=== PATIENT | male | born 1960 | race Caucasian/White ===

== ENCOUNTER → 2017-02-01 | Outpatient (CLI) | payer MEDICAID ==
[2017-02-01 17:48] LABS: Blood Urea Nitrogen 26 mg/dL (9-20); Non-African American GFR(MDRD) >60 (>60 ml/min/1.73 sqM)
--- NOTE | 2017-02-01 18:35 | CT ---
EXAMINATION TYPE: CT lumbar spine w con DATE OF EXAM: 02/01/2017 COMPARISON: 10/07/2014 HISTORY: Lower back pain. CT DLP: 1574 mGycm Automated exposure control for dose reduction was used. CONTRAST: CT scan of the lumbar is performed with IV Contrast, patient injected with 100 mL of Omnipaque 300. Enhanced CT of the lumbar spine was performed. Bone and soft tissue window settings are submitted as well as coronal and sagittal reconstructions. There is 4 to 5 mm anterior subluxation of L4 in relation L5. There is mild narrowing at L4-5 disc. T here is hypertrophic anterior bridging osteophyte formation at T11-L2 vertebra. Abdominal aorta is at heromatous. There is no compression fracture. There is mild hypertrophic facet arthropathy in the low er lumbar spine. There is narrowing of the spinal canal at L4-5 due to subluxation deformity and face t arthropathy. IMPRESSION: There is a degenerative first-degree L4-5 spondylolisthesis. There is a mild to moderate L4-5 bony sp inal stenosis due to the subluxation deformity. No fracture. Hypertrophic bridging osteophytes in the lower thoracic and upper lumbar spine could relate to a idiopathic skeletal hyperostosis. There is some progression of the subluxation at L4-[address]. Spinal stenosis appears worse than old exam.
== END | disposition home or self-care (01) ==
LOC: RADCTMAIN 17:03
PROVIDERS: ATTEND Family Medicine
DX: M48.06 Spinal stenosis, lumbar region (principal); M43.16 Spondylolisthesis, lumbar region; M47.26 Other spondylosis with radiculopathy, lumbar region; G95.29 Other cord compression
CPT/HCPCS: 82565; 84520; 72132; 36415; Q9967

== ENCOUNTER → 2017-04-02 | Outpatient (CLI) | payer MEDICAID | END | disposition home or self-care (01) | LOC: LABPAT 14:58 | PROVIDERS: ATTEND Orthopaedic Surgery Orthopaedic Surgery of the Spine | DX: Z01.812 Encounter for preprocedural laboratory examination (principal) | CPT/HCPCS: 87070 ==

== ENCOUNTER → 2017-04-09 | Outpatient (CLI) | payer MEDICAID ==
[2017-04-09 07:28] LABS: Basophils # (A) 0.1 k/uL (0-0.2); Basophils % (A) 1 %; CHCM 32.2; Eosinophils # (A) 0.3 k/uL (0-0.7); Eosinophils % (A) 3 %; HCT 47.1 % (39.0-53.0); HDW 2.83; HGB 14.9 gm/dL (13.0-17.5); Luc # (Auto) 0.23; Luc % (Auto) 2; Lymphocytes # (A) 2.9 k/uL (1.0-4.8); Lymphocytes % (A) 28 %; MCH 29.6 pg (25.0-35.0); MCHC 31.6 g/dL (31.0-37.0); MCV 93.6 fL (80.0-100.0); Mean Platelet Volume 8.7; Monocytes # (A) 0.7 k/uL (0-1.0); Monocytes % (A) 7 %; Neutrophils # (A) 6.3 k/uL (1.3-7.7); Neutrophils % (A) 60 %; RBC 5.03 m/uL (4.30-5.90); RDW 14.8 % (11.5-15.5); WBC 10.5 k/uL (3.8-10.6); WBC (Perox) 10.09
[2017-04-09 07:30] LABS: INR 0.9 (<1.2); Partial Thromboplastin Time 22.4 sec (22.0-30.0); Prothrombin Time 9.5 sec (9.0-12.0)
[2017-04-09 07:39] LABS: Appearance,Urine Clear (Clear); Bilirubin,Urine Negative (Negative); Glucose,Urine (UA) 4+ (Negative); Ketones,Urine Negative (Negative); Leukocyte Esterase,Urine Negative (Negative); Nitrite,Urine Negative (Negative); PH, Urine 5.5 (5.0-8.0); Protein,Urine Negative (Negative); Specific Gravity,Urine 1.015 (1.001-1.035); UA Billing (MACRO vs. MICRO) CHEM; Urobilinogen,Urine <2.0 mg/dL (<2.0)
[2017-04-09 07:42] LABS: Anion Gap 9 mmol/L; Blood Urea Nitrogen 15 mg/dL (9-20); Calcium 10.1 mg/dL (8.4-10.2); Carbon Dioxide 27 mmol/L (22-30); Chloride 103 mmol/L (98-107); Glucose 360 mg/dL (74-99); Non-African American GFR(MDRD) >60 (>60 ml/min/1.73 sqM); Potassium 5.4 mmol/L (3.5-5.1); Sodium 139 mmol/L (137-145)
--- NOTE | 2017-04-09 16:47 | XR ---
EXAMINATION TYPE: XR chest 2V DATE OF EXAM: 04/09/2017 COMPARISON: Prior chest x-ray 06/25/2015 and 03/10/2013 HISTORY: Presurgical TECHNIQUE: Frontal and lateral views of the chest are obtained. FINDINGS: There is no focal air space opacity, pleural effusion, or pneumothorax seen. The cardiac silhouette size is stable. Suspect prominent epicardial fat pads. Flowing anterior osteophytes in the thoracic spine are suspected. The osseous structures are intact. IMPRESSION: No acute cardiopulmonary process. Findings compatible with diffuse idiopathic skeletal h yperostosis.
== END | disposition home or self-care (01) ==
LOC: LABPAT 06:31
PROVIDERS: ATTEND Orthopaedic Surgery Orthopaedic Surgery of the Spine
DX: Z01.818 Encounter for other preprocedural examination (principal); Z01.812 Encounter for preprocedural laboratory examination; M48.00 Spinal stenosis, site unspecified
CPT/HCPCS: 71020; 80048; 81003; 85025; 85610; 85730

== ENCOUNTER 2017-04-17 08:48 | Inpatient (IN) | payer MEDICAID ==
[2017-04-05 11:31] VITALS: BMI 39.9
[~2017-04-17 08:48] MED LIST: BACITRACIN 50,000 UNIT, POLYMYXIN B 500,000 UNIT in SODIUM CHLORIDE 0.9% IRRIGATIO 1,00... IRRIGATION ONE; DEXAMETHASONE SOD PHOSPHATE 10 MG/ML 1 ML VIAL IV ONE; VANCOMYCIN 1,750 MG in SODIUM CHLORIDE 0.9% 250 ML IVPB ONE; ceFAZolin IN SWFI 2 GM/20 ML SYRINGE IVP ONE
[2017-04-17 09:35] LABS: Glucose,Whole Blood 343 mg/dL (75-99)
[2017-04-17] MEDS ORDERED: LIDOCAINE 1% 20 ML VIAL (10MG/ML) FOR IV START INTRADERMA ONE (09:40)
[2017-04-17] MEDS: LACTATED RINGERS 1,000 ML IV SCH ×4 (09:40→22:27)
[2017-04-17] MEDS: ONDANSETRON 4 MG/2 ML VIAL IVP ONE ×2 (09:41→17:38)
[2017-04-17] MEDS ORDERED: SCOPOLAMINE 1.5MG/72HR PATCH TRANSDERM ONE (09:41)
[2017-04-17] MEDS ORDERED: INSULIN LISPRO (humaLOG) 300 UNIT/3 ML VIAL SQ ONE (09:59)
[2017-04-17] MEDS ORDERED: fentaNYL (PF) 50 MCG/ML 2 ML AMP IV ONE (11:04)
[2017-04-17] MEDS ORDERED: fentaNYL (PF) 50 MCG/ML 2 ML AMP ONE (13:09)
[2017-04-17] MEDS ORDERED: PHENYLEPHRINE-0.9% NACL SYG 1 MG/10 ML SYRINGE ONE (13:09)
[2017-04-17] MEDS ORDERED: HEPARIN SODIUM,PORCINE 10,000 UNIT/ML 1 ML VIAL ONE (13:09)
[2017-04-17] MEDS ORDERED: THROMBIN (BOVINE) 5,000 UNIT VIAL TOPICAL ONE (13:09)
[2017-04-17] MEDS ORDERED: ROCURONIUM BROMIDE 10 MG/ML 10 ML VIAL IV ONE (13:09)
[2017-04-17] MEDS ORDERED: MIDAZOLAM 2 MG/2 ML VIAL ONE (13:09)
[2017-04-17] MEDS ORDERED: SUCCINYLCHOLINE CHLORIDE VIAL 200 MG/10 ML VIAL IV ONE (13:09)
[2017-04-17] MEDS ORDERED: PROPOFOL 10 MG/ML 20 ML VIAL IV ONE (13:09)
[2017-04-17] MEDS ORDERED: LIDOCAINE 1% INJ 10MG/ML (20 ML MDV) SQ ONE (13:09)
[2017-04-17] MEDS ORDERED: SODIUM CHLORIDE 0.9% IRRIG 1,000 ML BTL IRRIGATION ONE (13:09)
[2017-04-17] MEDS ORDERED: ePHEDrine SULFATE/0.9% NACL/PF 50 MG/5 ML SYRINGE IV ONE (13:09)
[2017-04-17] MEDS ORDERED: LIDOCAINE 1% INJ 10MG/ML (20 ML MDV) ONE (13:09)
[2017-04-17] MEDS ORDERED: GELATIN SPONGE,ABSORB (LARGE) 1 EACH SPONGE TOPICAL ONE (13:09)
[2017-04-17] MEDS ORDERED: HYDROmorphone (PF) 1 MG/ML ONE (13:09)
[2017-04-17] MEDS ORDERED: GLYCOPYRROLATE 0.2 MG/ML 2 ML VIAL ONE (13:09)
[2017-04-17] MEDS ORDERED: SODIUM CHLORIDE 0.9% 20 ML with ceFAZolin 2 GM IV ONE ×2 (13:31)
[2017-04-17] MEDS ORDERED: [UNRECOGNIZED DRUG - OTHER] MISCELLANE ONE ×4 (14:08)
[2017-04-17] MEDS ORDERED: BUPIVACAINE LIPOSOME MISCELLANE ONE ×4 (14:08)
[2017-04-17] MEDS ORDERED: LACTATED RINGERS 1,000 ML IV ONE ×2 (14:50→16:40)
[2017-04-17 15:53] LABS: Glucose,Whole Blood 189 mg/dL (75-99)
[2017-04-17] MEDS ORDERED: BENZOCAINE/MENTHOL LOZENG 1 EACH LOZENGE MUCOUS MEM PRN (17:02)
[2017-04-17] MEDS ORDERED: HYDROcodone/APAP 5-325MG 1 EACH TAB PO PRN (17:02)
[2017-04-17] MEDS ORDERED: MAGNESIUM HYDROXIDE 2,400 MG/10 ML CUP PO PRN (17:02)
[2017-04-17] MEDS ORDERED: HYDROmorphone 1 MG/ML 1 ML SYRINGE IVP PRN ×2 (17:02)
[2017-04-17] MEDS ORDERED: ONDANSETRON 4 MG/2 ML VIAL IVP PRN (17:02)
[2017-04-17] MEDS ORDERED: ACETAMINOPHEN TAB 325 MG TAB PO PRN (17:06)
--- NOTE | 2017-04-17 17:23 | P.OP ---
Date of Procedure: 04/17/17 Preoperative Diagnosis: Spondylolisthesis L4 5, recurrent herniated nucleus pulposis L4 5, spinal stenosis L4 5, facet arthrosis L4 5, lower extremity radiculopathy Postoperative Diagnosis: Same Anesthesia: GETA Pathology: none sent Condition: stable Disposition: PACU Description of Procedure: DESCRIPTION OF PROCEDURE(S): BRIEF OPERATIVE NOTE Preoperative Diagnosis: Spondylolisthesis L4 5, recurrent herniated nucleus pulposis L4 5, spinal stenosis L4 5, facet arthrosis L4 5, low back pain with lower extremity radiculopathy Postoperative Diagnosis: Same Procedure: Revision Laminectomy and decompression with complete facetectomy on the right L4 5 Minimally invasive Posterior lateral decompression and fusion L4 5 Minimally invasive Transforaminal lumbar interbody fusion for a 360 fusion L4 5 Revision Discectomy for decompression L4 5 Placement of interbody graft L4 5 Aspiration of bone marrow aspirate via the pedicle of L4 5 Local autogenous bone grafting Use of Cell Saver Use of bone graft extenders Surgeon: Dr. Hoyos [employer] Analyst: Ihsan BAH who is present throughout the entire the case persistence during positioning, dissection, exposure, visualization, and all crucial elements of the case as well as closure. Anesthesia: General anesthesia per Dr. Vogt Estimated blood loss: Approximately 300 mL with 141 mL given back through Cell Saver Complications: None apparent Components implanted: K2M minimally invasive pedicle screw system with 2 screws measuring 6.5 x 40 550 mm in length with one ana luisa 1 [place] interbody cage 1 osteoamp sponge, 15 mL of DBM fibrous bone graft, to supplement the local autogenous bone graft and bone marrow aspirate. Dissposition: To recovery room in good stable condition. OPERATIVE INDICATIONS The patient has had long-standing issues in their lower back and lower extremities. several years ago he had sustained a herniated nucleus process at L4 5 and underwent decompression and discectomy with our service. He had done great with that procedure and was doing very well over the past several years however over the past several months he has been developing worsening pain in his back and lower extremities. He had acute exacerbation and had severe symptoms with this. He had treatment conservatively and repeat imaging showed recurrent herniation and stenosis with progressive degeneration at L4 5 and new spondylolisthesis L4 5. These findings correlated with his back and lower extremity symptoms. The patient has been through conservative treatment. We discussed various treatment options including surgery, and the patient wishes to proceed with surgery We discussed the risk, patient's alternatives and benefits of surgery including but not limited to, risk of bleeding risk of infection, risk of need for further surgery, risk of decreased, loss of motion, muscle function, malunion nonunion, hardware failure, nerve damage, paralysis, heart attack, blindness and . OPERATIVE SUMMARY After discussing all the risks, patient alternatives and benefits at length, the patient elected to proceed with surgical intervention, signed informed consent, and presented for their procedure. The patient was seen and examined in the preoperative holding area and the surgical site was marked. The patient was given antibiotics and brought to the operating room. The patient was sedated and intubated by anesthesia in standard fashion. The patient was positioned on to the operating room table in a prone position on the appropriate frame which was well-padded and well molded. We were careful to pad any bony prominences and pressure points. We were careful to maintain the patient's cervical spine and good neutral alignment and position throughout. The patient was prepped and draped in a normal standard fashion. An appropriate timeout and keystone protocol performed. We were able to proceed with the surgery. The local wound area was infiltrated with local anesthetic. I was able utilize C-arm guidance to establish appropriate position over the pedicles bilaterally at the appropriate levels at L4 5 . With the appropriate levels confirmed was able to make small stab incisions over the appropriate pedicle sites bilaterally. Utilizing C-arm in his house able to establish a Jamshidi needle over the lateral aspect of the pedicle and advanced the trocar into the pedicle being careful not to breech superiorly inferiorly medially or laterally. Position was confirmed regularly with AP and lateral images on C- arm. I was able to establish the trocar into the pedicle appropriately into the posterior aspect of the vertebral body bilaterally at the appropriate levels at L4 and L5 bilaterally . This was done at each of the pedicle positions and each of the vertebrae. I was able place the guidewire into the trocar and into the vertebral body appropriately under C-arm guidance. Dissection was taken down over the wire to the appropriate starting position for the screw placed. The appropriate length screw was chosen, threaded over the guidewire and screwed appropriately into the pedicle and vertebral body under C-arm guidance. At L4 and L5 on the left I had excellent alignment and position with good bony purchase. However had L5 on the right the pedicle screw screw was somewhat lateral and we attempted to reposition the screw more medially. During this process the screw hole became expanded and we lost good screw fixation at L5 on the right. With the screws intact at L4 and 5 on the left in excellent alignment and position with excellent bony purchase I felt that would be sufficient to do unilateral pedicle screw fixation on the left and forego the pedicle screw fixation of the right. I was still able to use the pedicle screw at L4 on the right for use for the retraction plate system to the case. With the intact screws on the left I was able to test the screws appropriately and that no evidence of stimulation at 20 mA. This is done at each of the screw sites at the appropriate levels at L4 5 on the left . With the screws intact I extended the incision to connect the screw hole sites on the most symptomatic side on the right . I dissected down to establish access over the pars and lamina to the base of the spinous process. I was able to expose the facet joint. The capsule the facet was taken down and showed some facet arthrosis at the joint. I was able to use a combination of curettes and Kerrison rongeurs and a high-speed drill to take down the facet joint and do a facetectomy. Partial revision laminectomy was also performed. I was able get excellent foraminal decompression and central decompression with undermining across midline to perform a laminectomy centrally and contralaterally. As able get good central decompression. The ligamentum flavum was taken down to further decompress centrally and at bilateral neural foramen. I was able to expose the disc space and visualize the traversing nerve root. No was made of some disc protrusion at the level causing further compression of the nerve root. I was able to establish a annulotomy at the appropriate level protecting soft tissue and neural structures. No was made of some disc desiccation at the disc. I performed a a revision complete discectomy with accommodation of curettes and rasps and scrapers. I was able get good endplate preparation at the disc space. I sized for the appropriate size interbody spacer protecting the soft tissue and neural structures. The wound was copiously irrigated and suctioned dry. There is no evidence of any dural tear or leak. I was able to pack the disc space with local autogenous bone graft as well as a small amount of infuse which was also placed into the interbody cage itself. Protecting the soft tissue structures and neural structures I was able place the interbody cage in good alignment and good position with good fit and fill at the interbody space. His issues was confirmed with C-arm guidance. Good hemostasis maintained. There is no evidence of any dural tear or leak. The wound was irrigated and suctioned dry. With the hardware intact, intraoperative C-arm imaging was again taken which showed good alignment and position of the hardware at the appropriate levels at L4 5 . We were then able to measure, contour and place the rods and appropriate hardware bilaterally. I was able to place capcrews, tighten them down, and shear them off appropriately. The sheared portion was counted and accounted for. With this intact I was able to place the local autogenous bone graft with additional bone graft enhancer as necessary into the posterior lateral gutters over the decorticated transverse processes. The remainder of thbone graftas placed over the facet joint on the contralateral side after taking down the facet joint capsule. With the bone graft intact, a stable construct, and good decompression at the appropriate levels, we were able to proceed with closure. Good hemostasis was maintained. There is no evidence of dural tear or leak. The fascia was closed for a watertight closure. he subcuticular tissue was closed with absorbable suture. The wound was cleaned and dried and dressed with the appropriate dressing. The drapes were broken down. The patient was gently rolled back onto their hospital bed being careful to maintain their cervical spine and good neutral alignment and position. They were woken up by anesthesia, extubated, and brought to the recovery room in good stable condition. The patient will be admitted to the hospital for appropriate postoperative care , medical management and monitoring. We will continue to follow them closely about the postoperative course.
[2017-04-17] MEDS ORDERED: INSULIN LISPRO SQ SCH (17:30)
[2017-04-17 17:59] LABS: Glucose,Whole Blood 191 mg/dL (75-99)
[2017-04-17] MEDS ORDERED: PROMETHAZINE INJ 25 MG/ML 1 ML VIAL IVPB ONE (17:59)
[2017-04-17] MEDS: HYDROcodone/APAP 5-325MG 1 EACH TAB PO PRN (19:36)
[2017-04-17] MEDS: SODIUM CHLORIDE 0.9% 1,000 ML IV SCH (20:34)
[2017-04-17] MEDS: INSULIN DETEMIR 100 UNIT/ML 10 ML VIAL SQ SCH (20:44)
[2017-04-17] MEDS: DIAZEPAM 5 MG TAB PO PRN (20:59)
[2017-04-17 21:00] LABS: Glucose,Whole Blood 220 mg/dL (75-99)
[2017-04-17] MEDS: PROPRANOLOL 20 MG TAB PO SCH (21:00)
[2017-04-17] MEDS ORDERED: INSULIN ASPART 100 UNIT/ML 1 ML 10 ML VIAL SQ SCH (21:00)
[2017-04-17] MEDS: ceFAZolin IN SWFI 2 GM/20 ML SYRINGE IVP SCH (21:00)
[2017-04-17] MEDS ORDERED: PROPRANOLOL 40 MG TAB PO SCH (22:00)
[2017-04-18] MEDS ORDERED: ceFAZolin 3 GM in SODIUM CHLORIDE 0.9% 100 ML IVPB SCH ×2
[2017-04-18] MEDS: DIAZEPAM 5 MG TAB PO PRN ×3 (04:54→20:32)
[2017-04-18] MEDS: ceFAZolin IN SWFI 2 GM/20 ML SYRINGE IVP SCH ×3 (04:54→21:17)
[2017-04-18] MEDS: traMADol 50 MG TAB PO PRN ×3 (05:48→20:31)
[2017-04-18] MEDS: LACTATED RINGERS 1,000 ML IV SCH ×2 (06:12→09:46)
[2017-04-18 06:54] LABS: Basophils % (A) 0 %; CH 30.4; CHCM 32.4; Eosinophils # (A) 0.2 k/uL (0-0.7); Eosinophils % (A) 2 %; HCT 41.3 % (39.0-53.0); HDW 2.92; HGB 13.3 gm/dL (13.0-17.5); Luc # (Auto) 0.14; Luc % (Auto) 1; Lymphocytes # (A) 1.2 k/uL (1.0-4.8); Lymphocytes % (A) 10 %; MCH 30.4 pg (25.0-35.0); MCHC 32.2 g/dL (31.0-37.0); MCV 94.6 fL (80.0-100.0); Mean Platelet Volume 7.9; Monocytes # (A) 0.5 k/uL (0-1.0); Monocytes % (A) 5 %; Neutrophils # (A) 9.1 k/uL (1.3-7.7); Neutrophils % (A) 82 %; RBC 4.37 m/uL (4.30-5.90); RDW 13.5 % (11.5-15.5); WBC 11.2 k/uL (3.8-10.6); WBC (Perox) 11.59
[2017-04-18 07:12] LABS: Anion Gap 7 mmol/L; Blood Urea Nitrogen 12 mg/dL (9-20); Carbon Dioxide 26 mmol/L (22-30); Chloride 102 mmol/L (98-107); Glucose 252 mg/dL (74-99); Non-African American GFR(MDRD) >60 (>60 ml/min/1.73 sqM); Potassium 4.6 mmol/L (3.5-5.1); Sodium 135 mmol/L (137-145)
[2017-04-18 07:56] LABS: Glucose,Whole Blood 239 mg/dL (75-99)
[2017-04-18] MEDS: INSULIN ASPART 100 UNIT/ML 1 ML 10 ML VIAL SQ SCH ×4 (08:15→20:32)
[2017-04-18] MEDS: HYDROcodone/APAP 5-325MG 1 EACH TAB PO PRN ×3 (08:17→19:07)
[2017-04-18] MEDS: PROPRANOLOL 20 MG TAB PO SCH ×3 (08:19→21:50)
[2017-04-18] MEDS: MULTIVITAMINS, THERA 1 EACH TAB PO SCH (08:25)
[2017-04-18] MEDS: SENNOSIDES-DOCUSATE SODIUM 1 EACH TAB PO SCH (08:25)
--- NOTE | 2017-04-18 08:26 | XR ---
EXAMINATION TYPE: XR lumbar spine 2 or 3V, FL guidance operating room DATE OF EXAM: 04/17/2017 COMPARISON: NONE HISTORY: 56-year-old male lumbar fusion TECHNIQUE: Intraoperative fluoroscopy FINDINGS: 2 images are provided showing unilateral L4-L5 posterior and interbody fusion. Fluoroscopy time of 1.53 minutes was used during lumbar fusion. 2 image/s document/s the procedure. IMPRESSION: 2 intraoperative views during unilateral L4-L5 posterior and interbody fusion.
--- NOTE | 2017-04-18 08:55 | P.PN ---
Progress Note - Text Progress Note Date: 04/18/17 Postoperative day #1 Patient is seen and examined today at bedside. The patient has some pain around the surgical site as expected. Pain is being controlled with medication. He is up at bedside in a chair. He says that his legs are doing much better with his surgery. Physical Exam Afebrile with stable vital signs Abdomen is soft nontender. Chest has good excursion deep and space expiration The incision site is clean dry and intact. No erythema there is no purulence. There is no active drainage. The dressing was changed this morning there was some bloody drainage on the dressing. Extremities have not had neurologic change from prior to surgery. He has sustained dorsal flexion plantar flexion and EHL intact. Calves and thighs were soft nontender without evidence of DVT. Assessment/Plan Postoperative day #1 status post revision decompression with fusion at L4 5 Patient is progressing as expected from the surgery. He appears to be healing appropriately and we will continue to increase his mobilization. We will continue to increase the patient's mobilization with therapy. We will continue pain control with oral or IV medications. We'll continue to follow patient closely. He may be comfortable for discharge home tomorrow or Saturday.
[2017-04-18] MEDS: SODIUM CHLORIDE 0.9% 1,000 ML IV SCH ×2 (09:45→21:52)
[2017-04-18] MEDS: NON-FORMULARY DRUG (Lisdexamfetamine Dimesylate [Vyvanse] 70 MG) PO SCH (09:45)
[2017-04-18 12:08] LABS: Glucose,Whole Blood 359 mg/dL (75-99)
[2017-04-18 17:00] LABS: Glucose,Whole Blood 254 mg/dL (75-99)
[2017-04-18 20:27] LABS: Glucose,Whole Blood 295 mg/dL (75-99)
[2017-04-18] MEDS: INSULIN DETEMIR 100 UNIT/ML 10 ML VIAL SQ SCH (20:32)
[2017-04-19] MEDS: HYDROcodone/APAP 5-325MG 1 EACH TAB PO PRN ×5 (00:08→21:27)
[2017-04-19] MEDS: traMADol 50 MG TAB PO PRN ×3 (02:17→20:42)
[2017-04-19] MEDS: LACTATED RINGERS 1,000 ML IV SCH ×2 (03:36→08:01)
--- NOTE | 2017-04-19 05:02 | CONS ---
CONSULTATION CHIEF COMPLAINT: A 56-year-old white male, status post lumbar laminectomy for medical management consult. His sugars have been elevated in the 200s to 300s. He is on a sliding scale. His home medicines have been ordered for insulin. Hemoglobin A1c is 9.7. He is having severe 8 out of 10 pain in the lower back, despite surgery at this time, with his Estrada catheter removed. MEDICATIONS: At this time include: 1. NovoLog. 2. Dilaudid. 3. Valium. 4. Colazal. 5. [place]. 6. Tramadol. 7. Levemir. 8. Insulin. 9. Milk of magnesia. 10.Senokot. Fourteen-point review of systems negative except for mentioned above in HPI. VITAL SIGNS: Temp 98.6, pulse is 70s to 90s, blood pressure 140s over 70s, O2 98% on room air. CARDIOVASCULAR: S1, S2. LUNGS: Transmitted upper airway sounds. ABDOMEN: Distended due to obesity. EXTREMITIES: No cyanosis, clubbing, edema. OPHTHALMOLOGIC: Pupils equal, round, reactive to light and accommodation. NEUROLOGIC: Alert and oriented x3. PSYCH: Fair mood and affect. ASSESSMENT: 1. Status post lumbar laminectomy. He has 3 screws, 2 plates and 2 rods. Continue the pain management per Dr. Hoyos. 2. Insulin-dependent diabetes mellitus. 3. Hypertension. 4. Attention deficit hyperactivity disorder. 5. Obesity. Continue home medications. Will follow up in next 24 to 48 hours. Monitor sugars with Accu-Chek protocol. Home medicines restarted. MMODL / IJN: [id number] /
[2017-04-19] MEDS: ceFAZolin IN SWFI 2 GM/20 ML SYRINGE IVP SCH ×3 (05:14→21:28)
[2017-04-19 07:03] LABS: Glucose,Whole Blood 210 mg/dL (75-99)
[2017-04-19] MEDS: INSULIN ASPART 100 UNIT/ML 1 ML 10 ML VIAL SQ SCH ×5 (07:54→20:43)
[2017-04-19] MEDS: NON-FORMULARY DRUG (Lisdexamfetamine Dimesylate [Vyvanse] 70 MG) PO SCH (07:58)
[2017-04-19] MEDS: SENNOSIDES-DOCUSATE SODIUM 1 EACH TAB PO SCH (08:00)
[2017-04-19] MEDS: PROPRANOLOL 20 MG TAB PO SCH ×3 (08:00→21:28)
[2017-04-19] MEDS: SODIUM CHLORIDE 0.9% 1,000 ML IV SCH ×2 (08:00→23:46)
[2017-04-19] MEDS: MULTIVITAMINS, THERA 1 EACH TAB PO SCH (08:01)
--- NOTE | 2017-04-19 08:25 | P.PN ---
Progress Note - Text Progress Note Date: 04/19/17 Postoperative day #2 Patient is seen and examined today at bedside. The patient has some pain around the surgical site as expected. he was walking around and was able to walk in the halls around the nurse's station yesterday but overnight was feeling somewhat tired and felt like his legs were buckling to some degree. He still has good strength in his lower extremity however.Pain is being controlled with medication. Physical Exam Afebrile with stable vital signs Abdomen is soft nontender. Chest has good excursion deep and space expiration The incision site is clean dry and intact. No erythema there is no purulence.the incision site seems clear Extremities have not had neurologic change from prior to surgery. he has sustained dorsal flexion plantarflexion and EHL his bilateral lower extremities with good strength. Calves and thighs were soft nontender without evidence of DVT. Assessment/Plan Postoperative day #2 status post decompression and fusion L4 5 for recurrent disc herniation with revision decompression Patient is progressing as expected from the surgery. I think that he may have overdone a little bit yesterday but his neurologic status appears to be intact and he cancontinue his mobility as he is comfortable. I do not think that he' ll be couple for discharge home today but he may be a candidate for discharge home tomorrow or Saturday if he is comfortable. He is not yet had significant flatus or and has not yet had a bowel movement and this should improve as he continues to mobilize. We will continue to increase the patient's mobilization with therapy. We will continue pain control with oral or IV medications. We'll continue to follow patient closely.
[2017-04-19 11:45] LABS: Glucose,Whole Blood 224 mg/dL (75-99)
[2017-04-19] MEDS: DIAZEPAM 5 MG TAB PO PRN (15:15)
[2017-04-19 16:42] LABS: Glucose,Whole Blood 268 mg/dL (75-99)
[2017-04-19 20:20] LABS: Glucose,Whole Blood 315 mg/dL (75-99)
[2017-04-19] MEDS: INSULIN DETEMIR 100 UNIT/ML 10 ML VIAL SQ SCH (21:25)
--- NOTE | 2017-04-19 21:57 | PN ---
PROGRESS NOTE SUBJECTIVE: A 56-year-old white male who has limited motion and strength in his legs at this time after his epidural wore off. He is unable to really walk or stand much on his feet. He will need rehab placement at [facility]. His sugars have been high, in the mid 200s, despite sliding scale and his home insulin. Probably add 3 units plus scale to each Accu-Chek instead of just the Accu-Chek. Otherwise, CARDIOVASCULAR: S1, S2. LUNGS: Clear. GI: Soft. HEMATOLOGY: Negative Homans'. PSYCH: Fair mood and affect. MUSCULOSKELETAL: Still has his tube for drainage in the back. ASSESSMENT: 1. Spinal stenosis, status post surgery. 2. Insulin-dependent diabetes mellitus. 3. Hypertension. 4. Obesity. 5. Dyslipidemia. 6. Attention deficit disorder. Continue home medications. Increase insulin as mentioned above. Pain medicines as above. Physical therapy. [facility] placement. MMODL / IJN: [id number] /
[2017-04-20 02:50] VITALS: RESP 16
[2017-04-20] MEDS: ceFAZolin IN SWFI 2 GM/20 ML SYRINGE IVP SCH (05:10)
[2017-04-20] MEDS: LACTATED RINGERS 1,000 ML IV SCH ×2 (05:19→07:41)
[2017-04-20 07:31] VITALS: BP 142/76; PULSE 83; TEMP 98
[2017-04-20] MEDS: NON-FORMULARY DRUG (Lisdexamfetamine Dimesylate [Vyvanse] 70 MG) PO SCH (07:31)
[2017-04-20] MEDS: INSULIN ASPART 100 UNIT/ML 1 ML 10 ML VIAL SQ SCH ×4 (07:37→12:30)
[2017-04-20] MEDS: PROPRANOLOL 20 MG TAB PO SCH (07:39)
[2017-04-20] MEDS: MULTIVITAMINS, THERA 1 EACH TAB PO SCH (07:39)
[2017-04-20] MEDS: SENNOSIDES-DOCUSATE SODIUM 1 EACH TAB PO SCH (07:41)
[2017-04-20] MEDS: SODIUM CHLORIDE 0.9% 1,000 ML IV SCH (07:41)
[2017-04-20] MEDS: HYDROcodone/APAP 5-325MG 1 EACH TAB PO PRN ×2 (07:45→12:29)
[2017-04-20 07:54] LABS: Glucose,Whole Blood 233 mg/dL (75-99)
--- NOTE | 2017-04-20 10:11 | P.PN ---
Progress Note - Text Progress Note Date: 04/20/17 Postoperative day #3 Patient is seen and examined today at bedside. The patient has some pain around the surgical site as expected. he was walking around and was able to walk in the halls around the nurse's station yesterday but overnight was feeling somewhat tired and felt like his legs were buckling to some degree. He states that his neurologic symptoms to the lower extremities are improved. He still has good strength in his lower extremity however.Pain is being controlled with medication. Physical Exam Afebrile with stable vital signs Abdomen is soft nontender. Chest has good excursion deep and space expiration The incision site is clean dry and intact. No erythema there is no purulence.the incision site seems clear Extremities have not had neurologic change from prior to surgery. he has sustained dorsal flexion plantarflexion and EHL his bilateral lower extremities with good strength. Calves and thighs were soft nontender without evidence of DVT. Assessment/Plan Postoperative day #3 status post decompression and fusion L4 5 for recurrent disc herniation with revision decompression Patient is progressing as expected from the surgery. I think that he may have overdone a little bit yesterday but his neurologic status appears to be intact and he cancontinue his mobility as he is comfortable. I do not think that he' ll be couple for discharge home today but he may be a candidate for discharge home tomorrow or Saturday if he is comfortable. He is not yet had significant flatus or and has not yet had a bowel movement and this should improve as he continues to mobilize. We will continue to increase the patient's mobilization with therapy. We will continue pain control with oral or IV medications. We'll continue to follow patient closely. Plain discharge to inpatient rehab versus home.
--- NOTE | 2017-04-20 10:20 | P.DS ---
Providers Date of admission: 04/17/17 08:48 Expected date of discharge: 04/20/17 Attending physician: Beau Hoyos Consults: 04/17/17 17:02 Consult Physician Routine Consulting Provider: Júnior Meza Consult Reason/Comments: Medical management Do you want consulting provider notified?: Yes Primary care physician: Júnior Meza - Discharge Diagnosis(es) (1) Status post lumbar spinal fusion Current Visit: Yes Status: Acute (2) Spinal stenosis Current Visit: Yes Status: Acute Hospital Course: This is a 56-year-old male who is admitted to [facility] on 01/2017 for minimally invasive lumbar decompression and fusion with T left at L4 5. The patient has history of spondylolisthesis at L4 5 with history of laminectomy discectomy at that level. Patient is doing well postoperatively. He has no new compared to concerns today. His neurologic symptoms have improved since surgery. We are planning discharge to inpatient rehab today. Please see med rec for accurate list of home medications. Patient Condition at Discharge: Good Plan - Discharge Summary Discharge Rx Participant: Yes New Discharge Prescriptions: New HYDROcodone/APAP 5-325MG [Dupo 5] 1 each PO Q6HR PRN #90 tab PRN Reason: Pain No Action INSULIN LISPRO (HumaLOG) [humaLOG] See Protocol SQ ACHS Ibuprofen [Motrin] 800 mg PO TID PRN PRN Reason: Pain Lisdexamfetamine Dimesylate [Vyvanse] 70 mg PO DAILY Multivitamins, Thera [Multivitamin (formulary)] 1 tab PO DAILY traMADol HCl [Ultram] 50 - 100 mg PO Q6H PRN PRN Reason: Pain Insulin Degludec [Tresiba Flextouch U-100] 40 unit SQ HS Acetaminophen [Tylenol Arthritis] 650 - 1,300 mg PO Q6H PRN PRN Reason: Pain Propranolol HCl 60 mg PO TID Discharge Medication List INSULIN LISPRO (HumaLOG) [humaLOG] See Protocol SQ ACHS 06/25/15 [History] Ibuprofen [Motrin] 800 mg PO TID PRN 06/25/15 [History] Lisdexamfetamine Dimesylate [Vyvanse] 70 mg PO DAILY 06/25/15 [History] Acetaminophen [Tylenol Arthritis] 650 - 1,300 mg PO Q6H PRN 04/05/17 [History] Insulin Degludec [Tresiba Flextouch U-100] 40 unit SQ HS 04/05/17 [History] Multivitamins, Thera [Multivitamin (formulary)] 1 tab PO DAILY 04/05/17 [History ] traMADol HCl [Ultram] 50 - 100 mg PO Q6H PRN 04/05/17 [History] Propranolol HCl 60 mg PO TID 04/17/17 [History] HYDROcodone/APAP 5-325MG [Dupo 5] 1 each PO Q6HR PRN #90 tab 04/18/17 [Rx] Follow up Appointment(s)/Referral(s): Beau Hoyos DO [Doctor of Osteopathic Medicine] - 2 Weeks (With Ihsan Flowers at Dr. Hoyos's office) Activity/Diet/Wound Care/Special Instructions: Keep site clean. May shower with waterproof Tegaderm intact. On Saturday May shower with area uncovered but leave Steri-Strips intact and allow them to fray off on their own. Do not soak in a tub. May ambulate to tolerance. No heavy or rigorous activity. No repetitive bending twisting or lifting. No overhead work Discharge Disposition: TRANSFER TO SNF/ECF
[2017-04-20] MEDS: traMADol 50 MG TAB PO PRN (10:31)
[2017-04-20] MEDS: DIAZEPAM 5 MG TAB PO PRN (10:32)
[2017-04-20 11:36] LABS: Glucose,Whole Blood 253 mg/dL (75-99)
--- NOTE | 2017-04-20 18:05 | PN ---
PROGRESS NOTE SUBJECTIVE: This is a 56-year-old white male with insulin-dependent diabetes mellitus, lumbar laminectomy, hypertension, obesity, status post lumbar surgery. The patient is improving from a medical standpoint. His sugars are in the mid 200s. sliding scale +5 units, maybe increase his long-acting insulin in the group home. [facility] sent him home with [place] for pain. In the rehab center, a script was sent and the patient wants tramadol, which she was taking in the hospital and weaned off the [place], which is what I will order for the patient. I discussed this with the family, including the and the patient. A script for tramadol was ordered. Will try to wean him off [place]. MMMARK / RORYN: [id number] /
== END 2017-04-20 13:15 | DRG 460 ==
LOC: 2ORMAIN 08:48 → 3SUR 17:10
PROVIDERS: ADMIT Orthopaedic Surgery Orthopaedic Surgery of the Spine; ATTEND Orthopaedic Surgery Orthopaedic Surgery of the Spine
PROC: 0SG007J Fusion of Lumbar Vertebral Joint with Autologous Tissue Substitute, Posterior Approach, Anterior Column, Open Approach (ICD-10-PCS; 2017-04-17)
PROC: 0ST20ZZ Resection of Lumbar Vertebral Disc, Open Approach (ICD-10-PCS; 2017-04-17)
PROC: 00NY0ZZ Release Lumbar Spinal Cord, Open Approach (ICD-10-PCS; 2017-04-17)
PROC: 4A11X4G Monitoring of Peripheral Nervous Electrical Activity, Intraoperative, External Approach (ICD-10-PCS; 2017-04-17)
PROC: 30233N0 Transfusion of Autologous Red Blood Cells into Peripheral Vein, Percutaneous Approach (ICD-10-PCS; 2017-04-17)
PROC: 07DS3ZZ Extraction of Vertebral Bone Marrow, Percutaneous Approach (ICD-10-PCS; 2017-04-17)
PROC: 0SG00AJ Fusion of Lumbar Vertebral Joint with Interbody Fusion Device, Posterior Approach, Anterior Column, Open Approach (ICD-10-PCS; principal; 2017-04-17 12:15)
DX: M43.16 Spondylolisthesis, lumbar region (principal); I10 Essential (primary) hypertension; E78.5 Hyperlipidemia, unspecified; E66.9 Obesity, unspecified; E11.9 Type 2 diabetes mellitus without complications; M54.16 Radiculopathy, lumbar region; M48.061 Spinal stenosis, lumbar region without neurogenic claudication; F90.9 Attention-deficit hyperactivity disorder, unspecified type; Z79.4 Long term (current) use of insulin; Z79.891 Long term (current) use of opiate analgesic; Z79.1 Long term (current) use of non-steroidal anti-inflammatories (NSAID); Z82.49 Family history of ischemic heart disease and other diseases of the circulatory system; Z83.3 Family history of diabetes mellitus; Z87.891 Personal history of nicotine dependence; Z88.1 Allergy status to other antibiotic agents
CPT/HCPCS: 72100; 80048; 83036; 84132; 85025; 86850; 86891; 86900; 86901

== ENCOUNTER → 2022-01-17 | Outpatient (CLI) | payer MEDICARE ==
[2022-01-17 22:30] LABS: Basophils # (A) 0.06 X 10*3/uL (0.00-0.10); Basophils % (A) 0.6 %; Eosinophils # (A) 0.27 X 10*3/uL (0.04-0.35); Eosinophils % (A) 2.7 %; HCT 45.1 % (39.6-50.0); HGB 15.2 g/dL (13.0-17.0); Immature Grans, Automated 0.3 %; Lymphocytes # (A) 2.06 X 10*3/uL (0.90-5.00); Lymphocytes % (A) 20.8 %; MCH 29.7 pg (27.0-32.0); MCHC 33.7 g/dL (32.0-37.0); MCV 88.3 fL (80.0-97.0); Mean Platelet Volume 11.7 fL (9.5-12.2); Monocytes # (A) 0.58 X 10*3/uL (0.20-1.00); Monocytes % (A) 5.9 %; NRBC Per 100 WBC 0 /100 WBCS (0.0-0.0); Neutrophils % (A) 69.7 %; Platelet Count 262 X 10*3/uL (140-440); RBC 5.11 X 10*6/uL (4.40-5.60); RDW 13.4 % (11.5-14.5)
[2022-01-17 22:35] LABS: ALT 23 U/L (10-49); AST 22 U/L (14-35); Albumin 4.4 g/dL (3.8-4.9); Albumin/Globulin Ratio 1.91 (1.60-3.17); Alkaline Phosphatase 129 U/L (41-126); BUN/Creat Ratio 26.14 Ratio (12.00-20.00); Blood Urea Nitrogen 18.3 mg/dL (9.0-27.0); Calcium 9.8 mg/dL (8.7-10.3); Carbon Dioxide 26.5 mmol/L (20.0-27.5); Chloride 100 mmol/L (96-109); Globulin 2.3 g/dL (1.6-3.3); Glucose 331 mg/dL (70-110); Non-African American GFR(CKD) 101.9 (60.0-200.0); Potassium 4.3 mmol/L (3.5-5.5); Sodium 136 mmol/L (135-145); Total Bilirubin <0.15 mg/dL (0.30-1.20); Total Protein 6.7 g/dL (6.2-8.2)
[2022-01-17 23:08] LABS: INR 0.9 (0.90-1.11); Prothrombin Time 9.9 sec (9.9-11.9)
== END | disposition home or self-care (01) ==
LOC: LABPAT 14:55
PROVIDERS: ATTEND Orthopaedic Surgery
DX: Z01.812 Encounter for preprocedural laboratory examination (principal); I10 Essential (primary) hypertension; B89 Unspecified parasitic disease; Z79.899 Other long term (current) drug therapy
CPT/HCPCS: 80053; 85025; 85610; 87070

== ENCOUNTER → 2022-12-03 | Outpatient (CLI) | payer MEDICARE ==
[2022-12-03 16:41] LABS: INR 0.9 (<1.2); Prothrombin Time 9.8 sec (9.0-12.0)
[2022-12-03 21:02] LABS: BUN/Creat Ratio 26.12 Ratio (12.00-20.00); Blood Urea Nitrogen 20.9 mg/dL (9.0-27.0); Calcium 9.7 mg/dL (8.7-10.3); Carbon Dioxide 29.7 mmol/L (21.6-31.8); Chloride 99 mmol/L (96-109); Glucose 285 mg/dL (70-110); Potassium 5.1 mmol/L (3.5-5.5); Sodium 140 mmol/L (135-145)
[2022-12-03 21:24] LABS: Basophils # (A) 0.04 X 10*3/uL (0.00-0.10); Basophils % (A) 0.4 %; Eosinophils # (A) 0.28 X 10*3/uL (0.04-0.35); Eosinophils % (A) 3.1 %; HCT 39.9 % (39.6-50.0); HGB 12.7 d/dL (12.0-15.0); Lymphocytes # (A) 2.44 X 10*3/uL (0.90-5.00); Lymphocytes % (A) 27.4 %; MCH 29.4 pg (27.0-32.0); MCHC 31.8 d/dL (32.0-37.0); MCV 92.4 FL (80.0-97.0); Monocytes # (A) 0.68 X 10*3/uL (0.20-1.00); Monocytes % (A) 7.6 %; NRBC Per 100 WBC 0 X 10*3/uL (0.00-0.01); Neutrophils # (A) 5.41 X 10*3/uL (1.80-7.70); Neutrophils % (A) 60.8 %; Platelet Count 243 X 10*3/uL (140-440); RBC 4.32 X 10*6/uL (4.40-5.60); RDW 14.5 % (11.5-14.5); WBC 8.91 X 10*3/uL (4.50-10.00)
== END | disposition home or self-care (01) ==
LOC: LABPAT 14:38
PROVIDERS: ATTEND Orthopaedic Surgery
DX: Z01.812 Encounter for preprocedural laboratory examination (principal); M43.12 Spondylolisthesis, cervical region; T14.8XXA Other injury of unspecified body region, initial encounter; Z22.322 Carrier or suspected carrier of Methicillin resistant Staphylococcus aureus
CPT/HCPCS: 36415; 80048; 85025; 85610; 87070

== ENCOUNTER → 2022-12-08 | Outpatient (CLI) | payer MEDICARE ==
[2022-12-08 11:58] LABS: African American GFR (CKD) >90 (>60 ml/min/1.73 sqM); Anion Gap 8 mmol/L; Blood Urea Nitrogen 24 mg/dL (9-20); Calcium 9.1 mg/dL (8.4-10.2); Carbon Dioxide 29 mmol/L (22-30); Chloride 99 mmol/L (98-107); Glucose 222 mg/dL (74-99); Non-African American GFR(CKD) >90 (>60 ml/min/1.73 sqM); Potassium 4.2 mmol/L (3.5-5.1); Sodium 136 mmol/L (137-145)
== END | disposition home or self-care (01) ==
LOC: LABWHC1 11:26
PROVIDERS: ATTEND Orthopaedic Surgery
DX: Z01.812 Encounter for preprocedural laboratory examination (principal)
CPT/HCPCS: 36415; 80048

== ENCOUNTER 2022-12-10 09:23 | Inpatient (IN) | payer MEDICARE ==
[~2022-12-10 09:23] MED LIST changes: +ACETAMINOPHEN TAB 500 MG TAB PO PRN; -BACITRACIN 50,000 UNIT, POLYMYXIN B 500,000 UNIT in SODIUM CHLORIDE 0.9% IRRIGATIO 1,00... IRRIGATION ONE; -DEXAMETHASONE SOD PHOSPHATE 10 MG/ML 1 ML VIAL IV ONE; +DEXAMETHASONE SOD PHOSPHATE 4 MG/ML 1 ML VIAL IV ONE; +GABAPENTIN 300 MG CAP PO PRN; +HYDROmorphone 0.5 MG/0.5 ML SYRINGE IVP PRN; +LIDOCAINE 1% (10MG/ML) FOR IV START INTRADERMA PRN; +MIDAZOLAM 2 MG/2 ML VIAL IV PRN; +ONDANSETRON 4 MG/2 ML VIAL IVP ONE; +ONDANSETRON 4 MG/2 ML VIAL IVP PRN; +TRANEXAMIC 1,000 MG/100ML-NACL 1,000 MG in SALINE 1 100ML.BAG IVPB PRN; -VANCOMYCIN 1,750 MG in SODIUM CHLORIDE 0.9% 250 ML IVPB ONE; -ceFAZolin IN SWFI 2 GM/20 ML SYRINGE IVP ONE
[2022-12-10] MEDS ORDERED: LACTATED RINGERS 1,000 ML IV ONE ×2 (10:00)
[2022-12-10 10:35] LABS: Glucose,Whole Blood 258 mg/dL (70-110)
[2022-12-10] MEDS ORDERED: INSULIN ASPART (NovoLOG) 100 UNIT/ML VIAL SQ ONE (10:41)
[2022-12-10] MEDS ORDERED: VANCOMYCIN 1,750 MG in SODIUM CHLORIDE 0.9% 500 ML 500 ML IVPB ONE (10:45)
--- NOTE | 2022-12-10 11:30 | P.HPOR ---
History of Present Illness H&P Date: 12/10/22 Today Mr. Suárez presents for his low back surgery and regarding his MRI of his low back. His neck is doing well. His low back is miserable according to him. He has pain all the time 8/10. Pain with walking, pain with sitting, standing, activity and is it disturbing his sleep now. He states now also that he is getting more pain and numbness down both of his legs along the buttock and in to the feet b/l. He states no perineal numbness/tingling. States no bowel or bladder issues at this time. Denies any f/c/sob/cp. He states he has tried medications they no longer help. He states that PT made it worse. He states that all he can do is sit around and he wants to get back to his active life. Denies any other injury. he continues to have all these issues and related issues which has not gotten better with conservative management. 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 Month and Year of last PT date? Yes How many sessions? 12 Did it help? No Physician recommended home exercise completed? Duration of HEP course: yes Patient has trialed the physician directed home exercise program for (with/without) relief of their symptoms. Medications yes List: Belmond, Ashlee, motrin, aleve, medrol, flexeril Alternative interventions Chiropractic: No Massage therapy: yes R.I.C.E: yes Brace: Yes How long was brace worn? *3 mo Did it help? No Injections Yes How many? 3 Did they help? No RFA: No Review of Systems Constitutional: Reports as per HPI Past Medical History Past Medical History: Diabetes Mellitus, GERD/Reflux, Hearing Disorder / Deafness, Hyperlipidemia, Hypertension, Prostate Disorder, Sleep Apnea/CPAP /BIPAP Additional Past Medical History / Comment(s): supposed to use CPAP-NOT USING, celiac disease, radha. arms/LEGS N/T, pain, frequent falls related to failed back surg. per spouse, HX ASPIRATION PNEUMONIA 07/2022, KIVALINA History of Any Multi-Drug Resistant Organisms: None Reported Past Surgical History: Back Surgery, Hernia Repair, Tonsillectomy Additional Past Surgical History / Comment(s): laminectomy 2013, lumbar fusion 2017, hernia repair x2, cerivcal FUSION surgery 01/2022. HERNIA X 2, COLONOSCOPY, Past Anesthesia/Blood Transfusion Reactions: Previous Problems w/ Anesthesia Additional Past Anesthesia/Blood Transfusion Reaction / Comment(s): wakes up combative after anesthesia Smoking Status: Former smoker - Past Family History Mother Family Medical History: No Reported History Medications and Allergies Home Medications Medication Instructions Recorded Confirmed Type Insulin Degludec [Tresiba 62 unit SQ HS 04/05/17 12/06/22 History Flextouch U-100] Multivitamins, Thera [Multivitamin 1 tab PO DAILY 04/05/17 12/06/22 History (formulary)] Propranolol HCl [Inderal] 80 mg PO TID 04/17/17 12/06/22 History Ascorbic Acid [Vitamin C] 500 mg PO DAILY 01/23/22 12/06/22 History Cholecalciferol [Vitamin D3 (25 50 mcg PO DAILY 01/23/22 12/06/22 History Mcg = 1000 Iu)] Fluvastatin Sodium [Lescol Xl] 80 mg PO HS 01/23/22 12/06/22 History INSULIN ASPART (NovoLOG) [NovoLOG 30 unit SQ QID 01/23/22 12/06/22 History (formulary)] Loratadine [Claritin] 10 mg PO DAILY 01/23/22 12/06/22 History Nortriptyline [Pamelor] 100 mg PO HS 01/23/22 12/06/22 History Sertraline [Zoloft] 100 mg PO BID 01/23/22 12/06/22 History oxyCODONE-APAP 10-325MG [Percocet 1 tab PO QID 01/23/22 12/06/22 History 10-325 mg] Acetaminophen [Tylenol 8 Hour] 1,300 mg PO TID PRN 12/06/22 12/06/22 History Aspirin EC [Ecotrin Low Dose] 81 mg PO DAILY 12/06/22 12/06/22 History Budesonide/Glycopyr/Formoterol 2 puff INHALATION BID 12/06/22 12/06/22 History [Breztri Aerosphere Inhaler] Furosemide [Lasix] 20 mg PO DAILY 12/06/22 12/06/22 History Losartan/Hydrochlorothiazide 1 each PO DAILY 12/06/22 12/06/22 History [Hyzaar 100-12.5 Tablet] Pantoprazole [Protonix] 40 mg PO BID 12/06/22 12/06/22 History Potassium Chloride [Klor-Con M10] 10 meq PO DAILY 12/06/22 12/06/22 History Tamsulosin [Flomax] 0.4 mg PO HS 12/06/22 12/06/22 History cloNIDine HCL [Catapres] 0.2 mg PO TID 12/06/22 12/06/22 History lamoTRIgine [LaMICtal] 200 mg PO BID 12/06/22 12/06/22 History traZODone HCL [Desyrel] 100 mg PO HS 12/06/22 12/06/22 History Allergies Allergy/AdvReac Type Severity Reaction Status Date / Time tetracycline AdvReac TURNED Verified 12/06/22 11:42 TEETH DARK Physical Examination Osteopathic Statement: *. No significant issues noted on an osteopathic structural exam other than those noted in the History and Physical/Consult. -Patient is alert and oriented 3 appears well-nourished well-hydrated is in no acute distress. They do not appear septic. -On exam the patient has no tenderness to palpation of their thoracic or lumbar spine. There is no edema or ballottement sign. -Upper extremities show 5/5 strength in all major muscle groups. -Lower extremities with 4 out of 5 strength in all major muscle groups -There is FROM that is painless of the b/l UE and LE in all major joints. -They are intact to light touch sensation in L2 to S1 nerve distribution as well as the C5-T1 distribution. He has L4-5 sx of dermatomal deficit as well as some minor S1 which is old for him. -DTRs 2/4 all upper and lower -Patient has palpable distal pulses in all four extremities -Compartments are soft and compressible. - Muscle wasting in bilateral calves -Neg Jorgensen's -No Clonus -Neg Babinski -Neg Rex's -No tensioning signs. -Cranial nerves II through XII are grossly intact. -Overall alignment is well-maintained in the sagittal coronal planes. . Surgical incision: Looks good, no sign of any infection, no drainage, EEE, edema, or ecchymosis. No fevers or chills. Results XRay Lumbar and Pelvis multiview taken at [facility] on 10/22/2022: Images reviewed with the patient. Post surgical changes noted L4-5 with unilateral posterior instrumentation and cage. ASD of L5-S1 noted with collpase of disc space. There are anterior osteophytes from L1-S1 noted as well that are non-congruent. Nofractures noted. Alignment is stable at this time. No lesions. AP pelvis shows level pevis w/o fracture. MRI Lumbar Spine taken at [facility] on 08/10/2022: IMages reviewed with pt postsurgical changes again noted at L4-L5. There is still disc bulging noted on the right-hand side. No acute fracture. Alignment fairly well maintained. Adjacent segment disease noted at L5-S1 with near complete disc collapse facet arthrosis. There is mild to moderate stenotic features of L3-L4 L4-L5 and L5- S1. No acute fracture or other dislocation noted. L4-5 and L5-S1 degenerative Grade I, unstable spondylolisthesis. b/l foraminal stenosis due to disc herniation and bulge as well as the slip at both levels. No fractures noted. some motion artifact. Disc collapse and height loss as both of these levels that is moderate to severe. There is facet hypertorphy and ligamental hypertrophy that contributes to moderate stenosis at both levels centrally. No acute fractures noted. No lesions noted. Assessment and Plan Assessment: IMPRESSION AND PLAN: It was my pleasure to have seen and examined Mao. I reviewed the patient's clinical syndrome, physical findings, and imaging studies during the appointment today. It is my impression that the patient has a diagnosis of. 1. L4-5 L5-S1 Grade I unstable spondylolisthesis 2.Low back pain 3. LE paresthesia 4. LE weakness Plan: .T:Title: Surgical Procedure Risk Review Mao Suárez is a 62 year old male presenting for evaluation of sudden onset of low back pain, leg pain, leg weakness. It was my pleasure to have seen and examined Mr. Suárez. In our visit today we have had a chance to go over subjective complaints, physical examination findings and treatments, including the natural course history without intervention and various interventional options. The imaging demonstrates L4-5 unstable spondylolisthesis with stenosis with post surgical changes noted L5-S1. ASD and facet hypertrhophy . On physical exam, Mr. Suárez demonstrates LE weakness, continued low back pain refractory to conservative measures. Difficulty with ADLs secondary to pain and debility . I explained to the patient that as his condition progresses it could cause Continued pain, progressive symptoms . At this time, based on the patients imaging and physical exam, I recommend surgery in the form or a: L4-S1 revision decompression and fusion . I discussed the risk and benefits of this procedure at length with Mr. Suárez. The patient agreed to consider pursuing the procedure mentioned above. Plan: 1. Surgical plan: L4-S1 revision decompression and fusion 2. Follow up with PCP for surgical clearance 3. Review of surgical risks and benefits as well as an educational packet on the proposed surgical procedure. Risks: All surgical procedures come with inherent risks, including those related to positioning, anesthesia, intraoperative findings, and postoperative complications. It is important to understand that surgery does not come with any guarantee of a successful outcome as complications and adverse events are always possible. The patient was given a handout in office today discussing the surgical procedure and risks associated with the intervention, both of which were discussed with the patient. These risks include but are not limited to the following: ? Experiencing same, different or even worse symptoms in back, neck, arms, or legs compared to before surgery. ? Requiring further surgery or other forms of treatment presently or at some time in the future at same or other levels of the intended spine surgery. ? On an extreme but fortunately relatively rare basis severe complication such as blindness, stroke, heart attack, temporary and/or permanent nerve injury, paralysis, coma, or may occur, sometimes without known explanation. ? Surgical complications may include but are not limited to risk of infection, fluid accumulation in the surgical dissection site, including a seroma or hematoma, that requires additional surgery, wound drainage, bleeding, new numbness or weakness, vision changes/loss, spinal fluid leakage, non-healing and/or infected incision, headaches, difficulty or inability to swallow, hoarseness, hemopneumothorax, pneumothorax, impotence, retrograde ejaculation, vaginal dryness; injury to nerves, spinal cord, blood vessels, lymphatics or other vital organs (i.e., bowel injury, injury to the great vessels); heterotopic bone formation; complications related to the hardware such as screws, rods, cages including misplaced hardware, device failure, instrumentation at the wrong spine level, hardware fracture/breakage, or hardware loosening; vertebral failure of the spinal column above or below the newly placed hardware; retained surgical instrumentations or devices and the need for further surgery. ? Medical risks of the planned spine surgery include but are not limited to generalized Infections to the whole body or local areas outside of the surgical site (sepsis), heart attack, bleeding, anaphylaxis, meningitis, seizure, epilep sy, hearing loss, burn resendiz, laceration of the head or other areas of the body, bruising, hypersensitivity of the skin, bladder over distension; allergic reaction; shoulder injury related to positioning; fat, blood and air clots to other areas of the body like heart, lungs, brain; failure of internal organs such as lungs, kidneys, liver and excessive bleeding. If blood transfusions are necessary, note that transfusions may cause intolerance reactions such as anaphylaxis or other complex reactions. Despite best efforts, the results of spine surgery might not heal in terms of bone, soft tissues such as skin, fascia, ligaments, and joints. Additionally, in order to achieve best possible results, spine surgery may be carried out beyond the initially planned levels and involve decompression, fusion including insertion of hardware at levels other than the original intended area of surgical interest change some portions of the procedure in order to ensure the best possible outcomes. With spine surgery and spinal fusion, there are different off label uses of instrumentation (devices, implants and hardware) as well as biological substances (bone morphogenic proteins, demineralized bone matrix) as well as using extra bone from allograft sources (i.e. cadaver bone) or autograft (iliac crest bone, ribs, or the spine itself). The patient has been given information about these practices and their inherent risks and benefits. Sonja Valdez Physician Assistants are medically trained surgical providers who function in the outpatient, inpatient, and operating room setting under the direct supervision of the attending surgeon.They assist in the operating room with direct supervision of the attending surgeons. The patient has had a chance to review all the listed information, has been given print outs detailing this information, and has had all his/her questions answered to their satisfaction. It was my pleasure to have seen and examined Mr. Suárez. In our visit today we have had a chance to go over my understanding of our patient's current condition, the natural course history without intervention and various interventional options. Questions were invited and answered, and the patient wishes to proceed as outlined above. I have seen and examined the patient for 25 minutes and we have spent more than 50% of the time in repeat and detailed counseling about the patient's condition, its natural course history with out and as much as can be predicted with surgery and re-review of various surgical treatment options. In conclusion,Mr. Suárez and his spouse/partner requested we proceed with the above suggested surgery and are willing to accept risks and limitations of the suggested surgery as nature of the disease process and our best attempts at geovanna atment for the condition. Thank you again for allowing us to be part of your patient's care. Please don't hesitate to contact me if you have any further questions. Signed and authenticated by: Naveed Ley [facility] [address] [place] [address] [place] [address] [address] # SIGNED BY Naveed Washington (GO)12/10/2022 06:42AM
[2022-12-10] MEDS ORDERED: KETAMINE 10 MG/ML 20 ML VIAL ONE (12:13)
[2022-12-10] MEDS ORDERED: SUCCINYLCHOLINE CHLORIDE 200 MG/10 ML VIAL IV ONE (12:13)
[2022-12-10] MEDS ORDERED: HYDROmorphone (PF) 1 MG/ML ONE (12:13)
[2022-12-10] MEDS ORDERED: ROCURONIUM 10 MG/ML (5 ML VIAL) IV ONE (12:13)
[2022-12-10] MEDS ORDERED: PROPOFOL 10 MG/ML 20 ML VIAL IV ONE (12:13)
[2022-12-10] MEDS ORDERED: MIDAZOLAM 2 MG/2 ML VIAL ONE (12:13)
[2022-12-10] MEDS ORDERED: LIDOCAINE 2% INJ 20 MG/ML (2 ML VIAL) ONE (12:13)
[2022-12-10] MEDS ORDERED: GLYCOPYRROLATE 0.2 MG/ML 2 ML VIAL ONE (12:13)
[2022-12-10] MEDS ORDERED: fentaNYL (PF) 50 MCG/ML 2 ML AMP ONE (12:13)
[2022-12-10] MEDS ORDERED: NEOSTIGMINE 1 MG/ML 10 ML VIAL ONE (12:13)
[2022-12-10] MEDS ORDERED: TRANEXAMIC 1,000 MG/100ML-NACL PREMIX BAG ONE (12:13)
[2022-12-10] MEDS ORDERED: PHENYLEPHRINE-0.9% NACL SYG 1,000 MCG/10 ML SYRINGE ONE (12:13)
[2022-12-10] MEDS ORDERED: HYDROmorphone 0.5 MG/0.5 ML SYRINGE IVP PRN (12:55)
[2022-12-10] MEDS ORDERED: MAGNESIUM HYDROXIDE 2,400 MG/30 ML CUP PO PRN (12:55)
[2022-12-10] MEDS ORDERED: SENNOSIDES-DOCUSATE SODIUM 1 EACH TAB PO PRN (12:55)
[2022-12-10] MEDS ORDERED: THROMBIN (BOVINE) 5,000 UNIT VIAL TOPICAL ONE (14:09)
[2022-12-10] MEDS ORDERED: BUPIVACAINE (PF) 0.5% 30 ML VIAL SQ ONE ×2 (14:09)
[2022-12-10] MEDS ORDERED: GELATIN SPONGE,ABSORB (LARGE) 1 EACH SPONGE TOPICAL ONE (14:09)
[2022-12-10] MEDS ORDERED: GENTAMICIN 80 MG in SODIUM CHLORIDE 0.9% IRRIGATIO 3,000 ML IRRIGATION ONE (14:11)
[2022-12-10] MEDS ORDERED: ceFAZolin 3,000 MG in SODIUM CHLORIDE 0.9% IRRIGATIO 3,000 ML IRRIGATION ONE ×4 (14:11)
[2022-12-10] MEDS: LACTATED RINGERS 1,000 ML IV SCH (14:11)
[2022-12-10] MEDS ORDERED: VANCOMYCIN 1,000 MG VIAL MISCELLANE ONE (15:39)
--- NOTE | 2022-12-10 16:22 | XR ---
Fluoroscopy History: LUMBAR FUSION 34 secs FL. DAP: 11.4. Lumbar Fusion. Dr. Washington.
[2022-12-10] MEDS ORDERED: HYDROmorphone 0.5 MG/0.5 ML SYRINGE IVP ONE ×3 (16:50→17:10)
[2022-12-10 16:55] LABS: Glucose,Whole Blood 321 mg/dL (70-110)
--- NOTE | 2022-12-10 17:30 | FL ---
Intraoperative/procedural fluoroscopic services were provided. Total fluoroscopy time is 34 seconds w ith a total of 4 submitted images to PACS. Please see the operative/procedural note for further detai ls. DAP: 11.448 mGym2
[2022-12-10] MEDS: GABAPENTIN 300 MG CAP PO SCH ×2 (17:43→20:15)
[2022-12-10] MEDS: ACETAMINOPHEN TAB 325 MG TAB PO SCH (17:43)
[2022-12-10] MEDS: oxyCODONE-APAP 10-325MG 1 EACH TAB PO PRN (18:20)
[2022-12-10] MEDS ORDERED: DEXTROSE 50% SYRINGE 50 ML IVP PRN ×2 (18:35)
[2022-12-10] MEDS: SYMBICORT 160-4.5 MCG INHALER INHALATION SCH (19:37)
[2022-12-10] MEDS: IPRATROPIUM 0.5 MG/2.5 ML NEBU INHALATION SCH (19:37)
[2022-12-10] MEDS: ATORVASTATIN 10 MG TAB PO SCH (20:14)
[2022-12-10] MEDS: TAMSULOSIN 0.4 MG CAP.ER.24H PO SCH (20:15)
[2022-12-10] MEDS: lamoTRIgine 100 MG TAB PO SCH (20:15)
[2022-12-10] MEDS: SERTRALINE 100 MG TAB PO SCH (20:15)
[2022-12-10] MEDS: traZODone HCL 100 MG TAB PO SCH (20:15)
[2022-12-10] MEDS: cloNIDine HCL 0.1 MG TAB PO SCH (20:15)
[2022-12-10 20:22] LABS: Glucose,Whole Blood 294 mg/dL (70-110)
[2022-12-10] MEDS: NORTRIPTYLINE 25 MG CAP PO SCH (20:37)
[2022-12-10] MEDS: PROPRANOLOL 40 MG TAB PO SCH (20:38)
[2022-12-10] MEDS: INSULIN ASPART (NovoLOG) 100 UNIT/ML VIAL SQ SCH (20:38)
[2022-12-10] MEDS ORDERED: INSULIN DETEMIR (LEVEMIR) 100 UNIT/ML SYR SQ SCH (21:00)
[2022-12-10] MEDS: PANTOPRAZOLE 40 MG TABLET PO SCH (22:24)
--- NOTE | 2022-12-10 22:33 | P.CONS ---
History of Present Illness - Reason for Consult Consult date: 12/10/22 Medical management Requesting physician: Naveed Washington - Chief Complaint Back surgery - History of Present Illness I'm rounding for Dr. Júnior Castellon. This is a very pleasant 62-year-old patient who follows with Dr. Júnior Meza. Chronic stable medical conditions include diabetes, GERD, decreased eating, hypertension, hyperlipidemia, obstructive sleep apnea does not use CPAP, frequent falls secondary to failed back surgery,. Patient had laminectomy 2012 and lumbar fusion in 2016. Also cervical fusion in January 2022. Patient earlier today underwent surgery by Dr. Washington. Underwent revision L4 to S1 with minimally invasive transform 11 lumbar interbody fusion with hardware removal. Post surgery patient laying in bed. Pain is controlled. No nausea vomiting. 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 . Stopped smoking over 30 years ago. Smoked a pack a day for about 20 years. Physical examination: VITAL SIGNS: 98.4, 88, 18, 153 with 72, 96% on 2 L GENERAL: BMI 39.8, declining but awake not in distress. EYES: Pupils equal. Conjunctiva normal. HEENT: External appearance of nose and ears normal, oral cavity grossly normal. NECK: JVD not raised; masses not palpable. HEART: First and second heart sounds are normal; no edema. LUNGS: Respiratory rate increased decreased breath sounds. ABDOMEN: Soft, nontender, liver spleen not palpable, no masses palpable. PSYCH: Alert and oriented x3; mood and affect normal. MUSCULOSKELETAL:No Clubbing/cyanosis;muscles-grossly intact. Dressing over surgical site NEUROLOGICAL: Cranial nerves grossly intact; no facial asymmetry, power and sensation grossly intact. LYMPHATICS: No lymph nodes palpable in the axilla and neck INVESTIGATIONS, reviewed in the clinical context: December 08: Potassium 4.2 BUN 24 creatinine 0.66 December 03: White count 8.9 hemoglobin 12.7 platelets 243 Assessment and plan: -Patient with multiple prior to lumbar surgeries. Patient now has undergone revision L4 to S1 minimally invasive transform in L lumbar interbody fusion with hardware removal. Intraoperative neurophysiological monitoring. By Dr. Washington. Follow postop surgical orders. Including pain control -Essential hypertension Cutback Catapres 2.1 mg 3 times a day. Hold Lasix. Inderal 80 mg 3 times a day.. Hold Hyzaar -BPH Flomax 0.4 mg daily at bedtime -Depression and anxiety Zoloft 100 mg twice a day. Pamelor -GERD Protonix twice a day -Diabetes mellitus type 2 Continue try CPAP. Follow Accu-Cheks -Chronic gait dysfunction because of patient's back problems Care was discussed with the patient. Questions answered. Follow Accu-Cheks. Thank you Dr. Washington Past Medical History Past Medical History: Diabetes Mellitus, GERD/Reflux, Hearing Disorder / Deafness, Hyperlipidemia, Hypertension, Prostate Disorder, Sleep Apnea/CPAP/ BIPAP Additional Past Medical History / Comment(s): supposed to use CPAP-NOT USING, celiac disease, radha. arms/LEGS N/T, pain, frequent falls related to failed back surg. per spouse, HX ASPIRATION PNEUMONIA 07/2022, AKHIOK History of Any Multi-Drug Resistant Organisms: None Reported Past Surgical History: Back Surgery, Hernia Repair, Tonsillectomy Additional Past Surgical History / Comment(s): laminectomy 2012, lumbar fusion 2016, hernia repair x2, cerivcal FUSION surgery 01/2022. HERNIA X 2, COLONOSCOPY, Past Anesthesia/Blood Transfusion Reactions: Previous Problems w/ Anesthesia Additional Past Anesthesia/Blood Transfusion Reaction / Comm: wakes up combative after anesthesia Past Psychological History: Anxiety, Depression Smoking Status: Former smoker Past Alcohol Use History: None Reported Additional Past Alcohol Use History / Comment(s): quit smoking >20 yrs. ago, 1ppd for 20 yrs. Past Drug Use History: None Reported Additional Drug Use History / Comment(s): occasional edibles - Past Family History Mother Family Medical History: No Reported History Medications and Allergies Home Medications Medication Instructions Recorded Confirmed Type Insulin Degludec [Tresiba 62 unit SQ HS 04/05/17 12/10/22 History Flextouch U-100] Multivitamins, Thera [Multivitamin 1 tab PO DAILY 04/05/17 12/10/22 History (formulary)] Propranolol HCl [Inderal] 80 mg PO TID 04/17/17 12/10/22 History Ascorbic Acid [Vitamin C] 500 mg PO DAILY 01/23/22 12/10/22 History Cholecalciferol [Vitamin D3 (25 50 mcg PO DAILY 01/23/22 12/10/22 History Mcg = 1000 Iu)] Fluvastatin Sodium [Lescol Xl] 80 mg PO HS 01/23/22 12/10/22 History INSULIN ASPART (NovoLOG) [NovoLOG 30 unit SQ QID 01/23/22 12/10/22 History (formulary)] Loratadine [Claritin] 10 mg PO DAILY 01/23/22 12/10/22 History Nortriptyline [Pamelor] 100 mg PO HS 01/23/22 12/10/22 History Sertraline [Zoloft] 100 mg PO BID 01/23/22 12/10/22 History oxyCODONE-APAP 10-325MG [Percocet 1 tab PO QID 01/23/22 12/10/22 History 10-325 mg] Acetaminophen [Tylenol 8 Hour] 1,300 mg PO TID PRN 12/06/22 12/10/22 History Aspirin EC [Ecotrin Low Dose] 81 mg PO DAILY 12/06/22 12/10/22 History Budesonide/Glycopyr/Formoterol 2 puff INHALATION BID 12/06/22 12/10/22 History [Breztri Aerosphere Inhaler] Furosemide [Lasix] 20 mg PO DAILY 12/06/22 12/10/22 History Losartan/Hydrochlorothiazide 1 each PO DAILY 12/06/22 12/10/22 History [Hyzaar 100-12.5 Tablet] Pantoprazole [Protonix] 40 mg PO BID 12/06/22 12/10/22 History Potassium Chloride [Klor-Con M10] 10 meq PO DAILY 12/06/22 12/10/22 History Tamsulosin [Flomax] 0.4 mg PO HS 12/06/22 12/10/22 History cloNIDine HCL [Catapres] 0.2 mg PO TID 12/06/22 12/10/22 History lamoTRIgine [LaMICtal] 200 mg PO BID 12/06/22 12/10/22 History traZODone HCL [Desyrel] 100 mg PO HS 12/06/22 12/10/22 History Allergies Allergy/AdvReac Type Severity Reaction Status Date / Time tetracycline AdvReac TURNED Verified 12/10/22 09:46 TEETH DARK Physical Exam Vitals: Vital Signs Temp Pulse Pulse Resp BP Pulse Ox 12/10/22 20:08 88 12/10/22 19:38 88 12/10/22 19:30 78 148/75 94 L 12/10/22 19:15 90 138/79 95 12/10/22 19:00 88 161/79 94 L 12/10/22 18:45 90 148/72 94 L 12/10/22 18:30 90 159/76 93 L 12/10/22 18:15 89 146/78 97 12/10/22 18:00 91 136/63 95 12/10/22 17:42 98.4 F 88 18 153/72 96 12/10/22 17:10 85 17 119/68 91 L 12/10/22 16:55 84 17 147/73 95 12/10/22 16:40 98.7 F 87 16 164/85 99 12/10/22 10:30 122/56 12/10/22 10:15 97.5 F L 83 16 182/81 95 Intake and Output 12/10/22 12/10/22 12/10/22 06:59 14:59 22:59 Intake Total 2503 540 Output Total 2165 Balance 2503 -1625 Intake: IV 2503 300 Oral 240 Output: Drainage 140 Right Back 140 Urine 1575 Estimated Blood Loss 450 Other: Voiding Method Indwelling Catheter Weight 115.4 kg 115.4 kg Results Labs: Abnormal Lab Results - Last 24 Hours (Table) 12/10/22 12/10/22 12/10/22 Range/Units 10:34 16:54 20:20 POC Glucose (mg/dL) 258 H 321 H 294 H (70-110) mg/dL
[2022-12-11] MEDS: CYCLOBENZAPRINE 10 MG TAB PO PRN ×2 (00:14→15:06)
[2022-12-11] MEDS: oxyCODONE-APAP 10-325MG 1 EACH TAB PO PRN ×4 (00:14→17:53)
[2022-12-11] MEDS: ACETAMINOPHEN TAB 325 MG TAB PO SCH ×5 (00:41→23:24)
[2022-12-11] MEDS: PANTOPRAZOLE 40 MG TABLET PO SCH ×2 (05:56→17:37)
[2022-12-11] MEDS: HYDROmorphone 1 MG/ML 1 ML SYRINGE IVP PRN ×2 (06:07→20:20)
[2022-12-11 06:11] LABS: Glucose,Whole Blood 149 mg/dL (70-110)
[2022-12-11] MEDS: LACTATED RINGERS 1,000 ML IV SCH (06:11)
[2022-12-11] MEDS: INSULIN ASPART (NovoLOG) 100 UNIT/ML VIAL SQ SCH ×7 (06:11→22:47)
[2022-12-11] MEDS: CHOLECALCIFEROL 25 MCG (1000 IU) TABLET PO SCH (08:45)
[2022-12-11] MEDS: cloNIDine HCL 0.1 MG TAB PO SCH ×3 (08:45→23:24)
[2022-12-11] MEDS: ASCORBIC ACID 500 MG TAB PO SCH (08:45)
[2022-12-11] MEDS: LORATADINE 10 MG TAB PO SCH (08:45)
[2022-12-11] MEDS: SERTRALINE 100 MG TAB PO SCH ×2 (08:45→20:07)
[2022-12-11] MEDS: lamoTRIgine 100 MG TAB PO SCH ×2 (08:45→20:06)
[2022-12-11] MEDS: GABAPENTIN 300 MG CAP PO SCH ×2 (08:45→17:37)
[2022-12-11] MEDS: MULTIVITAMINS, THERA 1 EACH TAB PO SCH (08:45)
[2022-12-11] MEDS: PROPRANOLOL 40 MG TAB PO SCH ×3 (08:46→23:24)
[2022-12-11] MEDS: SYMBICORT 160-4.5 MCG INHALER INHALATION SCH ×2 (08:58→20:03)
[2022-12-11] MEDS: IPRATROPIUM 0.5 MG/2.5 ML NEBU INHALATION SCH ×4 (08:58→20:00)
[2022-12-11 10:16] LABS: Blood Urea Nitrogen 10.5 mg/dL (9.0-27.0); Carbon Dioxide 28.1 mmol/L (21.6-31.8); Chloride 102 mmol/L (96-109); Glucose 170 mg/dL (70-110); Potassium 4.4 mmol/L (3.5-5.5); Sodium 140 mmol/L (135-145)
[2022-12-11 10:32] LABS: Basophils # (A) 0.03 X 10*3/uL (0.00-0.10); Basophils % (A) 0.2 %; Eosinophils # (A) 0.16 X 10*3/uL (0.04-0.35); Eosinophils % (A) 1.3 %; HCT 34.2 % (39.6-50.0); HGB 10.9 d/dL (12.0-15.0); Lymphocytes # (A) 1.87 X 10*3/uL (0.90-5.00); Lymphocytes % (A) 15.2 %; MCH 29.5 pg (27.0-32.0); MCHC 31.9 d/dL (32.0-37.0); MCV 92.7 FL (80.0-97.0); Mean Platelet Volume 11.2 FL (9.5-12.2); Monocytes # (A) 1.02 X 10*3/uL (0.20-1.00); Monocytes % (A) 8.3 %; NRBC Per 100 WBC 0 X 10*3/uL (0.00-0.01); Neutrophils # (A) 9.16 X 10*3/uL (1.80-7.70); Neutrophils % (A) 74.7 %; Platelet Count 249 X 10*3/uL (140-440); RBC 3.69 X 10*6/uL (4.40-5.60); RDW 14.5 % (11.5-14.5); WBC 12.28 X 10*3/uL (4.50-10.00)
[2022-12-11 11:47] LABS: Glucose,Whole Blood 172 mg/dL (70-110)
--- NOTE | 2022-12-11 11:58 | P.PN ---
Subjective Progress Note Date: 12/11/22 Principal diagnosis: status post revision L4-S1 decompression and fusion Patient was examined today at bedside, he was just getting up with physical therapy to the chair. He states he does feel little wobbly on his feet. Patient does note discomfort in his back mainly with movement. Urinary catheter is in place at this time. He has not passed any gas at this time. Currently denies headaches, lightheadedness, chest pain, shortness of breath, nausea or vomiting Objective - Vital Signs Vital signs: Vital Signs Temp 98.4 F 12/11/22 06:59 Pulse 88 12/11/22 09:17 Resp 18 12/11/22 06:59 BP 126/60 12/11/22 06:59 Pulse Ox 92 L 12/11/22 06:59 FiO2 Intake & Output 12/10/22 12/11/22 12/11/22 18:59 06:59 18:59 Intake Total 3043 440 Output Total 2024 1690 Balance 1018 -1250 Weight 115.4 kg Intake: IV 2803 Intake, IV Titration 100 Amount ceFAZolin 2 gm In Sodium 100 Chloride 0.9% 50 ml @ 100 mls/hr IVPB Q8HR [facility] Rx# :[id number] Oral 240 340 Output: Drainage 190 Right Back 190 Urine 1575 1500 Estimated Blood Loss 450 Other: Voiding Method Indwelling Catheter Indwelling Catheter Indwelling Catheter - Exam Gen: AOx3, NAD VSS stable at this time Integument: Postop and is in good position and condition, no active drainage. Drain site is intact, mild bloody serosanguineous fluid noted Palpation: Mild tenderness with palpation to the paraspinal lumbar region ROM: Full range of motion in all major muscle groups of the bilateral upper and lower extremities, no focal deficits Sensory Exam: Senory exam to light touch is intact C5-T1 Senosry exam to light touch is intact L2-S1 Motor: 55 strength appreciated in the bilateral upper extremities with shoulder elevation, shoulder abduction, elbow extension, elbow flexion, wrist extension, wrist flexion, procedures nurse 4-/5 strength appreciated in the bilateral lower extremities with hip flexion, knee extension, knee flexion, plantar flexion, dorsiflexion, EHL, FHL Reflexes: 2/4 in all UE and LE Negative Aaron's bilateral Negative Babinski bilateral Clonus bilateral - Labs CBC & Chem 7: 12/11/22 06:24 07/04/23 06:24 Labs: Abnormal Lab Results - Last 24 Hours (Table) 12/10/22 12/10/22 12/11/22 Range/Units 16:54 20:20 06:09 WBC (4.50-10.00) X 10*3/uL RBC (4.40-5.60) X 10*6/uL Hgb (12.0-15.0) d/dL Hct (39.6-50.0) % MCHC (32.0-37.0) d/dL Neutrophils # (1.80-7.70) X 10*3/uL Monocytes # (0.20-1.00) X 10*3/uL Glucose (70-110) mg/dL POC Glucose (mg/dL) 321 H 294 H 149 H (70-110) mg/dL 12/11/22 12/11/22 12/11/22 Range/Units 06:24 06:24 11:40 WBC 12.28 H (4.50-10.00) X 10*3/uL RBC 3.69 L (4.40-5.60) X 10*6/uL Hgb 10.9 L (12.0-15.0) d/dL Hct 34.2 L (39.6-50.0) % MCHC 31.9 L (32.0-37.0) d/dL Neutrophils # 9.16 H (1.80-7.70) X 10*3/uL Monocytes # 1.02 H (0.20-1.00) X 10*3/uL Glucose 170 H (70-110) mg/dL POC Glucose (mg/dL) 172 H (70-110) mg/dL Assessment and Plan Assessment: Postoperative day #1 status post L4-S1 revision decompression and fusion Plan: Pain control, did restart oxycodone 10 mg/325 mg. Patient is also utilizing gabapentin and Flexeril at this time. I advised that he try to avoid the IV narcotics as best as he can. Multiple stool softeners are in place, would utilize these daily to help prevent constipation DVT prophylaxis, heparin 5000 units every 12 day hospital stay Wound care, continue to monitor surgical dressing and drain, we'll likely change dressing and remove drain in the next 2448 hours pending output Encourage incentive spirometer PT/OT daily, weight-bear as tolerated with walker Medical recommendations Plan to discontinue urinary catheter on 12/12/2022 Discharge planning: Depending on outpatient progresses with physical therapy, plan for discharge to home with home health care 4872 hours Time with Patient: Less than 30
--- NOTE | 2022-12-11 14:12 | P.PN ---
Progress Note - Text Progress Note Date: 12/11/22 - Chief Complaint Back surgery Hospital course: I'm rounding for Dr. Júnior Meza. This is a very pleasant 62-year-old patient who follows with Dr. Júnior Meza. Chronic stable medical conditions include diabetes, GERD, decreased eating, hyp ertension, hyperlipidemia, obstructive sleep apnea does not use CPAP, frequent falls secondary to failed back surgery,. Patient had laminectomy 2012 and lumbar fusion in 2016. Also cervical fusion in January 2022. Patient earlier today underwent surgery by Dr. Washington. Underwent revision L4 to S1 with minimally invasive transform 11 lumbar interbody fusion with hardware removal. Post surgery patient laying in bed. Pain is controlled. No nausea vomiting. December 11: Overnight patient became a bit delirious. Did pull out his IV.. Was slightly confused this morning. When I saw the patient this afternoon doing better. Was not keen for his breakfast. Requesting for his bautista to be pulled out. Discussed with the patient. Accu-Cheks being followed. Has a Hemovac in place. 1 90 mL blood last 12 hours Active Medications Acetaminophen (Acetaminophen Tab 325 Mg Tab) 650 mg PO Q6HR [facility] Last Admin: 12/11/22 12:34 Dose: 650 mg Ascorbic Acid (Ascorbic Acid 500 Mg Tab) 500 mg PO DAILY [facility] Last Admin: 12/11/22 08:45 Dose: 500 mg Aspirin (Aspirin 81 Mg) 81 mg PO DAILY [facility] Atorvastatin Calcium (Atorvastatin 10 Mg Tab) 10 mg PO HS [facility] Last Admin: 12/10/22 20:14 Dose: 10 mg Budesonide/Formoterol Fumarate (Symbicort 160-4.5 Mcg Inhaler) 2 puff INHALATION RT-BID [facility] Last Admin: 12/11/22 08:58 Dose: 2 puff Cholecalciferol (Cholecalciferol 25 Mcg (1000 Iu) Tablet) 50 mcg PO DAILY [facility] Last Admin: 12/11/22 08:45 Dose: 50 mcg Clonidine (Clonidine Hcl 0.1 Mg Tab) 0.1 mg PO TID [facility] Last Admin: 12/11/22 08:45 Dose: 0.1 mg Cyclobenzaprine HCl (Cyclobenzaprine 10 Mg Tab) 10 mg PO TID PRN PRN Reason: Muscle Spasm Last Admin: 12/11/22 00:14 Dose: 10 mg Dextrose/Water (Dextrose 50% Syringe 50 Ml) 25 ml IVP PER PROTOCOL PRN; Prot ocol PRN Reason: Hypoglycemia Dextrose/Water (Dextrose 50% Syringe 50 Ml) 50 ml IVP PER PROTOCOL PRN; Protocol PRN Reason: Hypoglycemia Furosemide (Furosemide 20 Mg Tab) 20 mg PO DAILY [facility] Gabapentin (Gabapentin 300 Mg Cap) 300 mg PO TID [facility] Last Admin: 12/11/22 08:45 Dose: 300 mg Heparin Sodium (Porcine) (Heparin Sodium,Porcine/Pf 5,000 Unit/0.5 Ml Syringe) 5,000 unit SQ Q12HR [facility] Hydrochlorothiazide (Hydrochlorothiazide 12.5 Mg Cap) 12.5 mg PO DAILY [facility] Hydromorphone HCl (Hydromorphone 0.5 Mg/0.5 Ml Syringe) 0.5 mg IVP Q3HR PRN PRN Reason: Pain Scale 4 - 6 Hydromorphone HCl (Hydromorphone 1 Mg/Ml 1 Ml Syringe) 1 mg IVP Q3HR PRN PRN Reason: Pain Scale of 7 - 10 Last Admin: 12/11/22 06:07 Dose: 1 mg Lactated Ringer's (Lactated Ringers) 1,000 mls @ 20 mls/hr IV .Q24H [facility] Stop: 01/03/23 09:16 Last Admin: 12/11/22 06:11 Dose: Not Given Cefazolin Sodium 2 gm/ Sodium (Chloride) 50 mls @ 100 mls/hr IVPB Q8HR [facility]; Protocol Insulin Aspart (Insulin Aspart (Novolog) 100 Unit/Ml Vial) 20 unit SQ AC-TID [facility] Last Admin: 12/11/22 12:37 Dose: 8 unit Insulin Aspart (Insulin Aspart (Novolog) 100 Unit/Ml Vial) 0 unit SQ ACHS [facility]; Protocol Last Admin: 12/11/22 12:36 Dose: 4 unit Insulin Detemir (Insulin Detemir (Levemir) 100 Unit/Ml Syr) 50 unit SQ HS [facility] Last Admin: 12/10/22 20:39 Dose: 50 unit Ipratropium [place] (Ipratropium 0.5 Mg/2.5 Ml Nebu) 0.5 mg INHALATION RT-QID [facility] Last Admin: 12/11/22 12:49 Dose: 0.5 mg Lamotrigine (Lamotrigine 100 Mg Tab) 200 mg PO BID [facility] Last Admin: 12/11/22 08:45 Dose: 200 mg Lidocaine HCl (Lidocaine 1% (10mg/Ml) For Iv Start) 0.1 ml INTRADERMA PER PROTOCOL PRN PRN Reason: IV Start Stop: 01/03/23 09:10 Loratadine (Loratadine 10 Mg Tab) 10 mg PO DAILY [facility] Last Admin: 12/11/22 08:45 Dose: 10 mg Losartan Potassium (Losartan 50 Mg Tab) 100 mg PO DAILY [facility] Magnesium Hydroxide (Magnesium Hydroxide 2,400 Mg/30 Ml Cup) 2,400 mg PO DAILY PRN PRN Reason: Constipation Multivitamins (Multivitamins, Thera 1 Each Tab) 1 each PO DAILY [facility] Last Admin: 12/11/22 08:45 Dose: 1 each Nortriptyline HCl (Nortriptyline 25 Mg Cap) 100 mg PO HS [facility] Last Admin: 12/10/22 20:37 Dose: 100 mg Oxycodone/Acetaminophen (Oxycodone-Apap 10-325mg 1 Each Tab) 1 each PO Q6HR PRN PRN Reason: Pain Last Admin: 12/11/22 12:47 Dose: 1 each Pantoprazole Sodium (Pantoprazole 40 Mg Tablet) 40 mg PO AC-BID [facility] Last Admin: 12/11/22 05:56 Dose: 40 mg Potassium Chloride (Potassium Chloride Er 10 Meq Tab.Er.Prt) 10 meq PO DAILY [facility] Propranolol HCl (Propranolol 40 Mg Tab) 80 mg PO TID [facility] Last Admin: 12/11/22 08:46 Dose: 80 mg Senna/Docusate Sodium (Sennosides-Docusate Sodium 1 Each Tab) 2 each PO DAILY PRN PRN Reason: Constipation Sertraline HCl (Sertraline 100 Mg Tab) 100 mg PO BID [facility] Last Admin: 12/11/22 08:45 Dose: 100 mg Tamsulosin HCl (Tamsulosin 0.4 Mg Cap.Er.24h) 0.4 mg PO HS [facility] Last Admin: 12/10/22 20:15 Dose: 0.4 mg Trazodone HCl (Trazodone Hcl 100 Mg Tab) 100 mg PO HS [facility] Last Admin: 12/10/22 20:15 Dose: 100 mg 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 . Stopped smoking over 30 years ago. Smoked a pack a day for about 20 years. Physical examination: VITAL SIGNS: 98.4, 88, 18, 126/60, 92% room air GENERAL: Sitting up in a chair, awake slightly tired EYES: Pupils equal. Conjunctiva normal. HEENT: External appearance of nose and ears normal, oral cavity grossly normal. NECK: JVD not raised; masses not palpable. HEART: First and second heart sounds are normal; no edema. LUNGS: Respiratory rate increased decreased breath sounds. ABDOMEN: Soft, nontender, liver spleen not palpable, no masses palpable. Bautista catheter PSYCH: Able to answer questions. Slightly slow MUSCULOSKELETAL:No Clubbing/cyanosis;muscles-grossly intact. Dressing over surgical site. Drain with Hemovac NEUROLOGICAL: Cranial nerves grossly intact; no facial asymmetry, power and sensation grossly intact. INVESTIGATIONS, reviewed in the clinical context: December 11: WBC 12.2 hemoglobin 10.9 platelets 249 potassium 4.4 creatinine 0.6 December 08: Potassium 4.2 BUN 24 creatinine 0.66 December 03: White count 8.9 hemoglobin 12.7 platelets 243 Assessment and plan: -Acute delirium overnight with metabolic encephalopathy likely from pain medications.: Some improvement this morning -Patient with multiple prior to lumbar surgeries. Patient now has undergone revision L4 to S1 minimally invasive transform in L lumbar interbody fusion with hardware removal. Intraoperative neurophysiological monitoring. By Dr. Washington. Follow postop surgical orders. Including pain control -Essential hypertension Cutback Catapres 0.1 mg 3 times a day. . Inderal 80 mg 3 times a day.. Hold Hyzaar -Acute postprocedure blood loss anemia as expected from surgery IV Ferrlecit 2 -BPH Flomax 0.4 mg daily at bedtime -Depression and anxiety Zoloft 100 mg twice a day. Pamelor -GERD Protonix twice a day -Diabetes mellitus type 2, chronically on insulin Increase Levemir to 60 units daily at bedtime. Sliding scale. -Chronic gait dysfunction because of patient's back problems We'll keep the Bautista in at least for today. IV Ferrlecit. Continue to hold Hyzaar. Patient encouraged to increase oral intake. Increase Levemir to 60 units daily at bedtime. Thank you Dr. Washington
[2022-12-11] MEDS: SODIUM FERRIC GLUCONAT-SUCROSE 125 MG in SODIUM CHLORIDE 0.9% 100 ML IVPB SCH (14:59)
[2022-12-11 16:36] LABS: Glucose,Whole Blood 129 mg/dL (70-110)
[2022-12-11 16:37] LABS: INR 0.9 (<1.2); Partial Thromboplastin Time 23.4 sec (22.0-30.0); Prothrombin Time 10.1 sec (9.0-12.0)
--- NOTE | 2022-12-11 17:38 | CT ---
EXAMINATION TYPE: CT lumbar spine wo con DATE OF EXAM: 12/10/2022 COMPARISON: HISTORY: Post-op eval s/p revision L4-S1 decompression fusion. CT DLP: 2093.4 mGycm Automated exposure control for dose reduction was used. Contrast: None Technique: Axial images 3 mm thick sections. Reconstructed images in the sagittal plane. FINDINGS: Disc spacers in place at the L4-5 level and L5-S1 level. Pedicle screws are present L4, L5, S1. No spinal canal stenosis is present. Postsurgical decompression is evident with postsurgical changes within the soft tissues at L4 and L5. Beam hardening artifact does cause limitation through these lev els. Remaining levels appear normal without focal disc herniation significant disc bulge or spinal canal s tenosis or neural foraminal stenosis IMPRESSION: 1. POSTSURGICAL CHANGES L4-S1 WITH DISC SPACERS AND PEDICLE SCREWS.
[2022-12-11] MEDS: ATORVASTATIN 10 MG TAB PO SCH (20:06)
[2022-12-11] MEDS: TAMSULOSIN 0.4 MG CAP.ER.24H PO SCH (20:06)
[2022-12-11] MEDS: traZODone HCL 100 MG TAB PO SCH (20:06)
[2022-12-11] MEDS: HEPARIN SODIUM,PORCINE/PF 5,000 UNIT/0.5 ML SYRINGE SQ SCH (20:06)
[2022-12-11] MEDS: NORTRIPTYLINE 25 MG CAP PO SCH (20:07)
[2022-12-11] MEDS ORDERED: HALOPERIDOL LACTATE 5 MG/ML 1 ML VIAL IM STA ×2 (20:28→22:21)
[2022-12-11 22:44] LABS: Glucose,Whole Blood 156 mg/dL (70-110)
[2022-12-11] MEDS: INSULIN DETEMIR (LEVEMIR) 100 UNIT/ML SYR SQ SCH (22:47)
[2022-12-12] MEDS: oxyCODONE-APAP 10-325MG 1 EACH TAB PO PRN ×2 (01:26→08:21)
[2022-12-12] MEDS: CYCLOBENZAPRINE 10 MG TAB PO PRN ×2 (01:26→14:58)
[2022-12-12 02:21] LABS: Glucose,Whole Blood 98 mg/dL (70-110)
[2022-12-12] MEDS ORDERED: LORazepam 2 MG/ML INJ IV STA (04:00)
[2022-12-12] MEDS: PANTOPRAZOLE 40 MG TABLET PO SCH ×2 (05:39→17:50)
[2022-12-12] MEDS: ACETAMINOPHEN TAB 325 MG TAB PO SCH ×3 (05:39→17:49)
[2022-12-12 05:51] LABS: Glucose,Whole Blood 66 mg/dL (70-110)
[2022-12-12] MEDS: INSULIN ASPART (NovoLOG) 100 UNIT/ML VIAL SQ SCH ×7 (05:54→20:26)
[2022-12-12 06:17] LABS: Glucose,Whole Blood 57 mg/dL (70-110)
[2022-12-12 06:42] LABS: Glucose,Whole Blood 76 mg/dL (70-110)
--- NOTE | 2022-12-12 08:19 | P.PN ---
Subjective Progress Note Date: 12/12/22 Principal diagnosis: 1. L4-5 L5-S1 Grade I unstable spondylolisthesis 2.Low back pain 3. LE paresthesia 4. LE weakness Patient seen and examined this morning. He continues to have increased confusion, likely due from anesthesia. Staff reports that patient did not sleep well last night, a lot of tossing and turning. There is a sitter at bedside. Surgical dressing has been changed this morning, Hemovac has been removed due to no longer holding compression. Bautista catheter remains intact and patent. Encouraged patient to be up with all meals, keep blinds opened during the day and room darkened at night to assist with orientation. Encourage patient to work with PT today. Objective - Vital Signs Vital signs: Vital Signs Temp 98.2 F 12/12/22 00:20 Pulse 82 12/12/22 00:20 Resp 19 12/12/22 00:20 BP 118/60 12/12/22 00:20 Pulse Ox 93 L 12/12/22 00:20 FiO2 Intake & Output 12/11/22 12/12/22 12/12/22 18:59 06:59 18:59 Intake Total 1080 Output Total 610 600 Balance 470 -600 Intake: Oral 1080 Output: Drainage 10 Right Back 10 Urine 600 600 Other: Voiding Method Indwelling Catheter Indwelling Catheter - Labs CBC & Chem 7: 12/11/22 06:24 12/11/22 06:24 Labs: Abnormal Lab Results - Last 24 Hours (Table) 12/11/22 12/11/22 12/11/22 Range/Units 06:24 06:24 11:40 WBC 12.28 H (4.50-10.00) X 10*3/uL RBC 3.69 L (4.40-5.60) X 10*6/uL Hgb 10.9 L (12.0-15.0) d/dL Hct 34.2 L (39.6-50.0) % MCHC 31.9 L (32.0-37.0) d/dL Neutrophils # 9.16 H (1.80-7.70) X 10*3/uL Monocytes # 1.02 H (0.20-1.00) X 10*3/uL Glucose 170 H (70-110) mg/dL POC Glucose (mg/dL) 172 H (70-110) mg/dL 12/11/22 12/11/22 12/12/22 Range/Units 16:31 22:42 05:48 WBC (4.50-10.00) X 10*3/uL RBC (4.40-5.60) X 10*6/uL Hgb (12.0-15.0) d/dL Hct (39.6-50.0) % MCHC (32.0-37.0) d/dL Neutrophils # (1.80-7.70) X 10*3/uL Monocytes # (0.20-1.00) X 10*3/uL Glucose (70-110) mg/dL POC Glucose (mg/dL) 129 H 156 H 66 L (70-110) mg/dL 12/12/22 Range/Units 06:15 WBC (4.50-10.00) X 10*3/uL RBC (4.40-5.60) X 10*6/uL Hgb (12.0-15.0) d/dL Hct (39.6-50.0) % MCHC (32.0-37.0) d/dL Neutrophils # (1.80-7.70) X 10*3/uL Monocytes # (0.20-1.00) X 10*3/uL Glucose (70-110) mg/dL POC Glucose (mg/dL) 57 L (70-110) mg/dL Assessment and Plan Assessment: Postop day 2: L4-S1 decompression and fusion 1. L4-5 L5-S1 Grade I unstable spondylolisthesis 2.Low back pain 3. LE paresthesia 4. LE weakness Plan: -Appreciate design studio consultant and team management. -Activity: Ambulate QID, OOB all meals, up and about, limit lifting bending twisting to less than 5 lbs. Use walker or cane if needed for stability. -Daily PT/OT, increase ambulation strength and balance. -Brace when up and about, not needed in bed or chair -Pain control: Adequate at this time -Meds: reviewed -GI ppx: senna, Miralax -DC bautista when up and about, bedside commode if needed -DVT PPX: Heparin -Hygiene: Shower today. Maintain dressing clean and dry. Meticulous cleaning after BMs away from the incision site -Encourage IS 10x/hr -Dispo: Anticipate discharge home with homecare vs [facility] in the next 48-72hrs. *I reviewed and discussed this case with my attending Dr. Washington, whom has reviewed this chart and films and is in agreement with assessment and plan of care as outlined above. I have personally seen and examined the patient, performed the documentation and the assessment and plan as written. Number of minutes spent on the visit: 20m.
[2022-12-12] MEDS: cloNIDine HCL 0.1 MG TAB PO SCH ×3 (08:21→21:58)
[2022-12-12] MEDS: CHOLECALCIFEROL 25 MCG (1000 IU) TABLET PO SCH (08:21)
[2022-12-12] MEDS: HEPARIN SODIUM,PORCINE/PF 5,000 UNIT/0.5 ML SYRINGE SQ SCH ×2 (08:21→20:55)
[2022-12-12] MEDS: NORTRIPTYLINE 25 MG CAP PO SCH (08:21)
[2022-12-12] MEDS: ASPIRIN 81 MG PO SCH (08:21)
[2022-12-12] MEDS: MULTIVITAMINS, THERA 1 EACH TAB PO SCH (08:22)
[2022-12-12] MEDS: POTASSIUM CHLORIDE ER 10 MEQ TAB.ER.PRT PO SCH (08:22)
[2022-12-12] MEDS: PROPRANOLOL 40 MG TAB PO SCH ×3 (08:22→21:58)
[2022-12-12] MEDS: LOSARTAN 50 MG TAB PO SCH (08:22)
[2022-12-12] MEDS: lamoTRIgine 100 MG TAB PO SCH ×2 (08:22→21:56)
[2022-12-12] MEDS: LORATADINE 10 MG TAB PO SCH (08:22)
[2022-12-12] MEDS: ASCORBIC ACID 500 MG TAB PO SCH (08:22)
[2022-12-12] MEDS: SERTRALINE 100 MG TAB PO SCH ×2 (08:22→21:56)
[2022-12-12] MEDS ORDERED: LORazepam 2 MG/ML INJ IV PRN (08:28)
[2022-12-12] MEDS ORDERED: LORazepam 1 MG TAB PO PRN (08:28)
[2022-12-12] MEDS: SYMBICORT 160-4.5 MCG INHALER INHALATION SCH ×2 (08:42→20:35)
[2022-12-12] MEDS: IPRATROPIUM 0.5 MG/2.5 ML NEBU INHALATION SCH ×4 (08:42→20:35)
[2022-12-12] MEDS: FUROSEMIDE 20 MG TAB PO SCH (10:10)
[2022-12-12] MEDS: hydroCHLOROthiazide 12.5 MG CAP PO SCH (10:10)
[2022-12-12 11:44] LABS: Glucose,Whole Blood 104 mg/dL (70-110)
[2022-12-12] MEDS ORDERED: traZODone HCL 100 MG TAB PO PRN (14:11)
[2022-12-12] MEDS ORDERED: flUPHENAZine 2.5 MG/ML (MDV) 10 ML VIAL IM PRN (14:13)
--- NOTE | 2022-12-12 14:28 | P.CN ---
Psychiatric Consult - . Consult date: 12/12/22 Consult:: 12/12/22 13:23 IDENTIFYING DATA: This patient is a 62-year-old male, , has 5 kids, lives in a house. REASON FOR REFERRAL: Psychiatry was consulted for "confusion/agitation" HISTORY OF PRESENT ILLNESS: The patient presented to the hospital initially on 12/10 for back pain and surgery and was seen by orthopedics. Patient has postop L4 to S1 decompression and fusion. Patient apparently has been more confused and was likely contributed to by the anesthesia after surgery, has not been poor sleep agitated bizarre and also has a sitter present. Patient was seen today living in bed and patient's was in the room and agreeable sphincter chief underwriter. She claims that for the past 5-6 months patient has been more more confused and bizarre at home, disoriented sometimes in the house and also verbally abusive. She states that she has mainly been taking care of his medications himself and it is been a struggle for her to help him with them and she is concerned that he may be overtaking pain meds. Patient was seen laying in bed today on his side and agreeable to speak a chief underwriter. He was pleasant at first, states "he knows his name correctly, Andrzej date of believes that he was at home and had to be reoriented to back in the hospital. He also believed that it was June 15, did not know today's year. He states that he is feeling "bad" alcohol pain, he was illogical at times. Difficult to redirect in conversation. He states that his sleep has been poor and has been restless, poor appetite at this time. At this time patient denies any suicidal or homical ideations, intent or plan. Patient denies any auditory, visual hallucinations. Patients admits to using THC edibles occasionally, denies any other recreational drug use. Majority of social information and history was gathered by patient's . also did provide chief underwriter with a copy of a MRI of his brain which is completed 09/06/2022 at an off site location and the report commented on nonspecific white matter changes and microangiopathic. PAST PSYCHIATRIC HISTORY: Patient has no known psychiatric history. Patient is currently on Zoloft, trazodone and Lamictal 200 mg twice a day. Patient denies any previous psychiatric hospitalizations. Patient denies any psychiatric outpatient follow-up. She receives his psychiatric medications from his primary care provider. Patient denies any history of suicide attempts in the past. Past Medical History: Diabetes Mellitus, GERD/Reflux, Hearing Disorder / Deafness, Hyperlipidemia, Hypertension, Prostate Disorder, Sleep Apnea/CPAP/BIPAP Additional Past Medical History / Comment(s): supposed to use CPAP-NOT USING, celiac disease, radha. arms/LEGS N/T, pain, frequent falls related to failed back surg. per spouse, HX ASPIRATION PNEUMONIA 07/2022, [place] History of Any Multi-Drug Resistant Organisms: None Reported Past Surgical History: Back Surgery, Hernia Repair, Tonsillectomy Additional Past Surgical History / Comment(s): laminectomy 2013, lumbar fusion 2017, hernia repair x2, cerivcal FUSION surgery 01/2022. HERNIA X 2, COLONOSCOPY, Past Anesthesia/Blood Transfusion Reactions: Previous Problems w/ Anesthesia Additional Past Anesthesia/Blood Transfusion Reaction / Comment(s): wakes up combative after anesthesia Smoking Status: Former smoker ALLERGIES: as per EMR. CHEMICAL DEPENDENCY HISTORY: as per HPI. FAMILY PSYCHIATRIC/SUBSTANCE USE HISTORY: denies SOCIAL HISTORY: Patient was born and raised in [facility]. 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 Patient has 5 kids, currently lives with his in a house. MENTAL STATUS EXAM: General Appearance: Patient appears to be overweight, balding head, disoriented, stated age is alert, pleasant, and attempts to be cooperative. Patient appears to have fair hygiene and grooming wearing hospital gown with poor eye contact. Behavior: Patient is calmly lying in bed without any agitated behavior. Bizarre at times. Difficult to redirect. Speech: Patient's speech is fluent and nonpressured. Mood/Affect: Patient reports their mood is "bad", affect is congruent and constricted Suicidality/Homicidality: Patient denies having any suicidal or homicidal ideation intent or plan. Perceptions: Patient denies any visual hallucinations and denies any auditory hallucinations Though content/process: Illogical at times, rambling. Confused. Memory and concentration: AOX1, to name only, does not know today's date or his location. Poor concentration span. Cannot spell "WORLD" backwards Judgment and insight: poor IMPRESSIONS: Delirium likely secondary to medications like opioids history of depression PLAN: -At this time patient DOES NOT meet criteria for inpatient psychiatric admission. -Patient DOES NOT have decision making capacity at this time and is unable to reason through and communicate/appreciate the risks, benefits and alternatives to treatment. -Delirium precautions recommended with patient including - avoiding use of narcotics and STATISTICAL MODELER sedatives, limit anticholinergic medications when possible, frequent re-orientation, minimize use of restraints, open window shades during the day and close them at night -Would recommend the following medication changes/additions: PLEASE reduce opioids as these are contributing and precipitating patients delirium/confusion. Discontinue trazodone scheduled, changed to when necessary and nighttime. Start Risperdal 1 mg by mouth daily at bedtime for delirium/psychosis, decreased nortypilline as this has a high anticholinergic burden which may also increase confusion, continue with Zoloft as prescribed and Lamictal as prescribed. will d/c ativan. prolixin IM and PO prns for agitation/psychosis. -Continue 1:1 sitter for safety -chief underwriter spoke with pts , nurse and also Dr Ralph over the phone about plan and recs. -Will continue to follow along -Please contact with any questions. 12/12/22 13:24 12/12/22 14:15
[2022-12-12 16:18] LABS: Glucose,Whole Blood 168 mg/dL (70-110)
[2022-12-12] MEDS ORDERED: FUROSEMIDE 10 MG/ML 4 ML VIAL IV STA (19:19)
[2022-12-12 19:30] LABS: Glucose,Whole Blood 223 mg/dL (70-110)
[2022-12-12 19:32] LABS: ABG Base Excess -2.4 mmol/L; ABG HCO3 26 mmol/L (21-25); ABG Oxygen Saturation 92.4 % (94-97); ABG PCO2 64 mmHg (35-45); ABG PH 7.21 (7.35-7.45); ABG PO2 84 mmHg (83-108); ABG TCO2 28 mmol/L (19-24); Allen Test Performed? Yes
--- NOTE | 2022-12-12 19:39 | XR ---
EXAMINATION TYPE: XR chest 1V portable DATE OF EXAM: 12/12/2022 7:32 PM COMPARISON: Chest radiographs from 04/09/2017 TECHNIQUE: XR chest 1V portable Portable AP radiograph of the chest. CLINICAL INDICATION:Male, 62 years old with history of sob; FINDINGS: Lungs/Pleura: Bibasilar patchy airspace opacities. No pleural effusion or pneumothorax. Pulmonary vascularity: Pulmonary vascular congestion. Heart/mediastinum: Cardiomediastinal silhouette is unremarkable. Musculoskeletal: No acute osseous pathology. Cervical fusion hardware partially visualized. IMPRESSION: Bibasilar patchy airspace opacities concerning for pneumonia.
[2022-12-12 19:49] LABS: Glucose,Whole Blood 266 mg/dL (70-110)
[2022-12-12 19:50] LABS: Basophils # (A) 0.1 k/uL (0-0.2); Basophils % (A) 0 %; Eosinophils # (A) 0.3 k/uL (0-0.7); Eosinophils % (A) 2 %; HCT 37.3 % (39.0-53.0); HGB 11.6 gm/dL (13.0-17.5); Hypochromasia Moderate; Lymphocytes # (A) 2.9 k/uL (1.0-4.8); Lymphocytes % (A) 16 %; MCH 29.6 pg (25.0-35.0); MCHC 31.1 g/dL (31.0-37.0); MCV 95.3 fL (80.0-100.0); Mean Platelet Volume 8.4; Monocytes # (A) 1.3 k/uL (0-1.0); Monocytes % (A) 7 %; Neutrophils # (A) 13.5 k/uL (1.3-7.7); Neutrophils % (A) 74 %; Platelet Count 359 k/uL (150-450); RBC 3.92 m/uL (4.30-5.90); RDW 14.1 % (11.5-15.5); WBC 18.2 k/uL (3.8-10.6)
[2022-12-12] MEDS ORDERED: DEXMEDETOMIDINE/0.9% NACL(PMX) 400 MCG in EMPTY BAG 1 BAG IV SCH (20:00)
[2022-12-12 20:06] LABS: African American GFR (CKD) >90 (>60 ml/min/1.73 sqM); Anion Gap 10 mmol/L; Blood Urea Nitrogen 9 mg/dL (9-20); Calcium 8.3 mg/dL (8.4-10.2); Carbon Dioxide 26 mmol/L (22-30); Chloride 99 mmol/L (98-107); Glucose 259 mg/dL (74-99); Non-African American GFR(CKD) >90 (>60 ml/min/1.73 sqM); Potassium 4.2 mmol/L (3.5-5.1); Sodium 135 mmol/L (137-145)
[2022-12-12] MEDS: SODIUM FERRIC GLUCONAT-SUCROSE 125 MG in SODIUM CHLORIDE 0.9% 100 ML IVPB SCH (20:21)
[2022-12-12] MEDS: LACTATED RINGERS 1,000 ML IV SCH (20:21)
[2022-12-12] MEDS: INSULIN DETEMIR (LEVEMIR) 100 UNIT/ML SYR SQ SCH (20:50)
--- NOTE | 2022-12-12 20:52 | P.PN ---
Progress Note - Text Progress Note Date: 12/12/22 - Chief Complaint Back surgery Hospital course: I'm rounding for Dr. Júnior Meza. This is a very pleasant 62-year-old patient who follows with Dr. Júnior Meza. Chronic stable medical conditions include diabetes, GERD, decreased eating, hyp ertension, hyperlipidemia, obstructive sleep apnea does not use CPAP, frequent falls secondary to failed back surgery,. Patient had laminectomy 2012 and lumbar fusion in 2016. Also cervical fusion in January 2022. Patient earlier today underwent surgery by Dr. Washington. Underwent revision L4 to S1 with minimally invasive transform 11 lumbar interbody fusion with hardware removal. Post surgery patient laying in bed. Pain is controlled. No nausea vomiting. December 11: Overnight patient became a bit delirious. Did pull out his IV.. Was slightly confused this morning. When I saw the patient this afternoon doing better. Was not keen for his breakfast. Requesting for his bautista to be pulled out. Discussed with the patient. Accu-Cheks being followed. Has a Hemovac in place. 1 90 mL blood last 12 hours December 12: I saw the patient this morning. He had a sitter overnight. Had been delirious. Had to receive Haldol. Also Ativan. Psychiatry was consulted. I discussed with Dr. Calderón. It's assisting medications. Patient is able to hold short sentences. He would then drift off.. Then he would drift off. Nod off. He also last day follows [facility] in [facility]. Also discussed with the nurse today. Total time spent today about 1 hour. 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 . Stopped smoking over 30 years ago. Smoked a pack a day for about 20 years. Physical examination: VITAL SIGNS: 98.3, 84, 18, 117/68, 97% on 2 L GENERAL: Declining a bit tired but does wake up to answer questions EYES: Pupils equal. Conjunctiva normal. HEENT: External appearance of nose and ears normal, oral cavity grossly normal. NECK: JVD not raised; masses not palpable. HEART: First and second heart sounds are normal; no edema. LUNGS: Respiratory rate increased decreased breath sounds. ABDOMEN: Soft, nontender, liver spleen not palpable, no masses palpable. Bautista catheter PSYCH: Does answer questions. Richelle eating Mentation fluctuating. MUSCULOSKELETAL:No Clubbing/cyanosis;muscles-grossly intact. Dressing over surgical site. Drain with Hemovac NEUROLOGICAL: Cranial nerves grossly intact; no facial asymmetry, power and sensation grossly intact. INVESTIGATIONS, reviewed in the clinical context: Hemoglobin A1c: 9.9. TSH 1.1 December 11: WBC 12.2 hemoglobin 10.9 platelets 249 potassium 4.4 creatinine 0.6 December 08: Potassium 4.2 BUN 24 creatinine 0.66 December 03: White count 8.9 hemoglobin 12.7 platelets 243 Assessment and plan: -Acute delirium overnight with metabolic encephalopathy likely from pain medications.: Not improving -Patient with multiple prior to lumbar surgeries. Patient now has undergone revision L4 to S1 minimally invasive transform in L lumbar interbody fusion with hardware removal. Intraoperative neurophysiological monitoring. By Dr. Washington. Follow postop surgical orders. Including pain control -Essential hypertension Catapres 0.1 mg 3 times a day. . Inderal 80 mg 3 times a day.. Hold Hyzaar -Acute postprocedure blood loss anemia as expected from surgery IV Ferrlecit 2 -BPH Flomax 0.4 mg daily at bedtime -Depression and anxiety Zoloft 100 mg twice a day. Pamelor -GERD Protonix twice a day -Diabetes mellitus type 2, chronically on insulin, uncontrolled with hyperglycemia Levemir to 60 units daily at bedtime. Sliding scale. -Chronic gait dysfunction because of patient's back problems Continue with Bautista. Discussed with the nurse. Discussed with the patient. Also discussed with Dr. Calderón from psychiatry. He is making some medication devon nges. Thank you Dr. Washington
[2022-12-12] MEDS ORDERED: NORTRIPTYLINE 25 MG CAP PO SCH (21:00)
[2022-12-12] MEDS ORDERED: risperiDONE 1 MG TAB PO SCH (21:00)
[2022-12-12] MEDS: TAMSULOSIN 0.4 MG CAP.ER.24H PO SCH (21:56)
[2022-12-12] MEDS: ATORVASTATIN 10 MG TAB PO SCH (21:56)
[2022-12-12 22:18] LABS: ABG Base Excess 1.8 mmol/L; ABG HCO3 26 mmol/L (21-25); ABG Oxygen Saturation 97.1 % (94-97); ABG PCO2 39 mmHg (35-45); ABG PH 7.43 (7.35-7.45); ABG PO2 142 mmHg (83-108); ABG TCO2 27 mmol/L (19-24); Allen Test Performed? Yes
[2022-12-12] MEDS: HYDROmorphone 1 MG/ML 1 ML SYRINGE IVP PRN (22:47)
[2022-12-13] MEDS ORDERED: IPRATROPIUM-ALBUTEROL 3 ML NEB INHALATION PRN ×2 (00:17→01:37)
[2022-12-13] MEDS: ACETAMINOPHEN TAB 325 MG TAB PO SCH ×5 (01:07→23:52)
[2022-12-13] MEDS: PIPERACILLIN-TAZOBACTAM 3.375 GM in SODIUM CHLORIDE 0.9% 100 ML IVPB SCH ×3 (01:08→15:13)
[2022-12-13] MEDS ORDERED: HALOPERIDOL LACTATE 5 MG/ML 1 ML VIAL IVP PRN (01:30)
--- NOTE | 2022-12-13 01:49 | P.CNPUL ---
History of Present Illness Consult date: 12/13/22 Requesting physician: Júnior Meza Reason for consult: other (ICU management) Chief complaint: Acute hypoxemic and hypercapnic respiratory failure History of present illness: I am seeing this patient in new consultation today 12/13/2022 for acute hypoxemic and hypercapnic respiratory failure that developed last night, requiring BiPAP and transfer to the ICU. Patient is a 62-year-old white male with past medical history significant for chronic lower back pain, prior lumbar spine laminectomy, prior cervical spine fusion, diabetes mellitus type 2, hypertension, hyperlipidemia, benign prostate hyperplasia, and obstructive sleep apnea not maintained on CPAP. The patient was brought in on December 10 for an elective revision of his lumbar spondylolisthesis requiring a L4 through S1 fusion. He is currently postoperative day #3. Initially, the patient was extubated and admitted to the general medical floor. He did develop some delirium postoperatively. The patient has known previous reactions to anesthesia. According to the family, the patient has had worsening memory loss, confusion, agitation preoperatively for the last 6 months. This has been worked up on an outpatient basis. Last night the patient was reportedly observed coughing and choking, was cyanotic, and developed some acute respiratory distress. According to the family, the patient has history of aspiration pneu monia and difficulty swallowing since his previous cervical spine fusion in January,. A rapid response team was called. He required transfer to the intensive care unit on the BiPAP with current settings of 14/5 and FiO2 of 35%. He is achieving adequate tidal volumes. Most recent ABGs, show an improvement in his hypercapnia, with a PaO2 of 142, pCO2 of 39, pH of 7.43. This was done on FiO2 of 50%. He did require Precedex infusion for acute agitation, which is currently infusing at 0.3 mcg/kg/h. He is calm and tolerating the BiPAP. Most recent chest x-ray shows bibasilar patchy airspace opacities concerning for pneumonia. I did start the patient on Zosyn. Most recent CBC shows a WBC count of 18.2, hemoglobin 11.6, hematocrit 37.3, platelets 359. BMP shows a sodium 135, potassium 4.2, chloride 99, serum bicarb 26, BUN 9, creatinine 0.6, glucose 259. No IV maintenance fluids are currently infusing. NT proBNP level was mildly elevated at 1870. He was given a dose of Lasix 40 mg IV push once. Fluid balance is -1.8 L over last 24 hours. A fire safety inspector is at the bedside. Patient will be monitored in the intensive care unit. Review of Systems ROS unobtainable: due to mental status Past Medical History Past Medical History: Diabetes Mellitus, GERD/Reflux, Hearing Disorder / Deafness, Hyperlipidemia, Hypertension, Prostate Disorder, Sleep Apnea/CPAP/BIPAP Additional Past Medical History / Comment(s): supposed to use CPAP-NOT USING, celiac disease, radha. arms/LEGS N/T, pain, frequent falls related to failed back surg. per spouse, HX ASPIRATION PNEUMONIA 07/2022, KL[facility]I [facility] History of Any Multi-Drug Resistant Organisms: None Reported Past Surgical History: Back Surgery, Hernia Repair, Tonsillectomy Additional Past Surgical History / Comment(s): laminectomy 2012, lumbar fusion 2016, hernia repair x2, cerivcal FUSION surgery 01/2022. HERNIA X 2, COLONOSCOPY, Past Anesthesia/Blood Transfusion Reactions: Previous Problems w/ Anesthesia Additional Past Anesthesia/Blood Transfusion Reaction / Comment(s): wakes up combative after anesthesia Past Psychological History: Anxiety, Depression Smoking Status: Former smoker Past Alcohol Use History: None Reported Additional Past Alcohol Use History / Comment(s): quit smoking >20 yrs. ago, 1ppd for 20 yrs. Past Drug Use History: None Reported Additional Drug Use History / Comment(s): occasional edibles - Past Family History Mother Family Medical History: No Reported History Medications and Allergies Home Medications Medication Instructions Recorded Confirmed Type Insulin Degludec [Tresiba 62 unit SQ HS 04/05/17 12/10/22 History Flextouch U-100] Multivitamins, Thera [Multivitamin 1 tab PO DAILY 04/05/17 12/10/22 History (formulary)] Propranolol HCl [Inderal] 80 mg PO TID 04/17/17 12/10/22 History Ascorbic Acid [Vitamin C] 500 mg PO DAILY 01/23/22 12/10/22 History Cholecalciferol [Vitamin D3 (25 50 mcg PO DAILY 01/23/22 12/10/22 History Mcg = 1000 Iu)] Fluvastatin Sodium [Lescol Xl] 80 mg PO HS 01/23/22 12/10/22 History INSULIN ASPART (NovoLOG) [NovoLOG 30 unit SQ QID 01/23/22 12/10/22 History (formulary)] Loratadine [Claritin] 10 mg PO DAILY 01/23/22 12/10/22 History Nortriptyline [Pamelor] 100 mg PO HS 01/23/22 12/10/22 History Sertraline [Zoloft] 100 mg PO BID 01/23/22 12/10/22 History oxyCODONE-APAP 10-325MG [Percocet 1 tab PO QID 01/23/22 12/10/22 History 10-325 mg] Acetaminophen [Tylenol 8 Hour] 1,300 mg PO TID PRN 12/06/22 12/10/22 History Aspirin EC [Ecotrin Low Dose] 81 mg PO DAILY 12/06/22 12/10/22 History Budesonide/Glycopyr/Formoterol 2 puff INHALATION BID 12/06/22 12/10/22 History [Breztri Aerosphere Inhaler] Furosemide [Lasix] 20 mg PO DAILY 12/06/22 12/10/22 History Losartan/Hydrochlorothiazide 1 each PO DAILY 12/06/22 12/10/22 History [Hyzaar 100-12.5 Tablet] Pantoprazole [Protonix] 40 mg PO BID 12/06/22 12/10/22 History Potassium Chloride [Klor-Con M10] 10 meq PO DAILY 12/06/22 12/10/22 History Tamsulosin [Flomax] 0.4 mg PO HS 12/06/22 12/10/22 History cloNIDine HCL [Catapres] 0.2 mg PO TID 12/06/22 12/10/22 History lamoTRIgine [LaMICtal] 200 mg PO BID 12/06/22 12/10/22 History traZODone HCL [Desyrel] 100 mg PO HS 12/06/22 12/10/22 History Allergies Allergy/AdvReac Type Severity Reaction Status Date / Time tetracycline AdvReac TURNED Verified 12/10/22 09:46 TEETH DARK Physical Exam Vitals: Vital Signs Temp Pulse Pulse Resp BP BP Pulse Ox 12/13/22 00:00 98.6 F 64 18 99/55 99 12/12/22 23:30 64 18 100/56 99 12/12/22 23:00 64 15 104/56 99 12/12/22 22:30 68 22 91/58 100 12/12/22 22:20 12/12/22 22:00 70 24 97/53 100 12/12/22 21:55 12/12/22 21:30 75 24 90/50 100 12/12/22 21:00 100 F H 80 23 99/54 100 12/12/22 20:43 87 12/12/22 20:35 81 12/12/22 20:00 101.6 F H 70 18 177/84 99 12/12/22 19:55 12/12/22 19:36 90 L 12/12/22 14:11 97.3 F L 84 18 117/68 97 12/12/22 08:42 93 L 12/12/22 08:00 87 18 12/12/22 06:54 98.3 F 87 18 119/74 94 L FiO2 12/13/22 00:00 35 12/12/22 23:30 12/12/22 23:00 12/12/22 22:30 12/12/22 22:20 35 12/12/22 22:00 12/12/22 21:55 50 12/12/22 21:30 12/12/22 21:00 12/12/22 20:43 80 12/12/22 20:35 12/12/22 20:00 50 12/12/22 19:55 100 12/12/22 19:36 100 12/12/22 14:11 12/12/22 08:42 12/12/22 08:00 12/12/22 06:54 Intake and Output 12/12/22 12/12/22 12/13/22 14:59 22:59 06:59 Intake Total 8.27 Output Total 400 1000 460 Balance -400 -991.73 -460 Intake: Intake, IV Titration 8.27 Amount Dexmedetomidine/0.9% NaCl 8.27 (Pmx) 400 mcg In Empty Bag 1 bag @ 0.2 MCG/KG/HR 5.77 mls/hr IV .[id number] [facility] Rx#:[id number] Output: Urine 400 1000 460 Other: Voiding Method Indwelling Catheter Indwelling Catheter GENERAL EXAM: Sedated and Lethargic, tolerating BiPAP, and briefly wakens to verbal stimuli HEAD: Normocephalic and atraumatic EYES: Normal reaction of pupils, equal size. NOSE: Clear with pink turbinates. THROAT: No erythema or exudates. NECK: No masses, no JVD. CHEST: No chest wall deformity. LUNGS: Equal air entry with diffuse rhonchi heard bilaterally and throughout. Currently on the BiPAP settings 14/5 and FiO2 35%. CVS: S1 and S2 normal with no audible murmur, regular rhythm. No extra heart sounds ABDOMEN: Obese abdomen. No hepatosplenomegaly, active bowel sounds, no guarding or rigidity. SPINE: No scoliosis or deformity. Surgical dressing is clean, dry, intact. SKIN: No rashes CENTRAL NERVOUS SYSTEM: No focal deficits, tone is normal in all 4 extremities. He does not follow commands for full neuro evaluation. EXTREMITIES: There is no peripheral edema, clubbing, or cyanosis. Peripheral pulses are intact. Results - Laboratory Findings CBC and BMP: 12/12/22 19:35 12/12/22 19:35 ABG ABG pH 7.43 (7.35-7.45) 12/12/22 22:17 ABG pCO2 39 mmHg (35-45) 12/12/22 22:17 ABG pO2 142 mmHg (83-108) H 12/12/22 22:17 ABG O2 Saturation 97.1 % (94-97) H 12/12/22 22:17 PT/INR, D-dimer PT 10.1 sec (9.0-12.0) 12/11/22 15:32 INR 0.9 (<1.2) 12/11/22 15:32 D-Dimer 2.04 mg/L FEU (<0.60) H 12/12/22 19:35 Abnormal lab findings: Abnormal Labs 12/10/22 12/10/22 12/10/22 10:34 16:54 20:20 WBC RBC Hgb Hct MCHC Neutrophils # Monocytes # D-Dimer ABG pH ABG pCO2 ABG pO2 ABG HCO3 ABG Total CO2 ABG O2 Saturation Sodium Creatinine Glucose POC Glucose (mg/dL) 258 H 321 H 294 H Hemoglobin A1c Calcium 12/11/22 12/11/22 12/11/22 06:09 06:24 06:24 WBC 12.28 H RBC 3.69 L Hgb 10.9 L Hct 34.2 L MCHC 31.9 L Neutrophils # 9.16 H Monocytes # 1.02 H D-Dimer ABG pH ABG pCO2 ABG pO2 ABG HCO3 ABG Total CO2 ABG O2 Saturation Sodium Creatinine Glucose 170 H POC Glucose (mg/dL) 149 H Hemoglobin A1c Calcium 12/11/22 12/11/22 12/11/22 11:40 16:31 22:42 WBC RBC Hgb Hct MCHC Neutrophils # Monocytes # D-Dimer ABG pH ABG pCO2 ABG pO2 ABG HCO3 ABG Total CO2 ABG O2 Saturation Sodium Creatinine Glucose POC Glucose (mg/dL) 172 H 129 H 156 H Hemoglobin A1c Calcium 12/12/22 12/12/22 12/12/22 05:48 06:15 11:15 WBC RBC Hgb Hct MCHC Neutrophils # Monocytes # D-Dimer ABG pH ABG pCO2 ABG pO2 ABG HCO3 ABG Total CO2 ABG O2 Saturation Sodium Creatinine Glucose POC Glucose (mg/dL) 66 L 57 L Hemoglobin A1c 9.9 H Calcium 12/12/22 12/12/22 12/12/22 16:16 19:10 19:29 WBC RBC Hgb Hct MCHC Neutrophils # Monocytes # D-Dimer ABG pH 7.21 L ABG pCO2 64 H ABG pO2 ABG HCO3 26 H ABG Total CO2 28 H ABG O2 Saturation 92.4 L Sodium Creatinine Glucose POC Glucose (mg/dL) 168 H 223 H Hemoglobin A1c Calcium 12/12/22 12/12/22 12/12/22 19:35 19:35 19:35 WBC 18.2 H RBC 3.92 L Hgb 11.6 L Hct 37.3 L MCHC Neutrophils # 13.5 H Monocytes # 1.3 H D-Dimer 2.04 H ABG pH ABG pCO2 ABG pO2 ABG HCO3 ABG Total CO2 ABG O2 Saturation Sodium 135 L Creatinine 0.60 L Glucose 259 H POC Glucose (mg/dL) Hemoglobin A1c Calcium 8.3 L 12/12/22 12/12/22 19:47 22:17 WBC RBC Hgb Hct MCHC Neutrophils # Monocytes # D-Dimer ABG pH ABG pCO2 ABG pO2 142 H ABG HCO3 26 H ABG Total CO2 27 H ABG O2 Saturation 97.1 H Sodium Creatinine Glucose POC Glucose (mg/dL) 266 H Hemoglobin A1c Calcium - Diagnostic Findings Chest x-ray: image reviewed Assessment and Plan Assessment: Acute hypoxemic and hypercapnic respiratory failure possibly secondary to aspiration. Chest x-ray shows bibasilar infiltrates concerning for pneumonia. Currently on the BiPAP with settings 14/5 and an FiO2 of 35%. NT proBNP was also mildly elevated at 1870. Patient was given a one-time additional dose of Lasix. Acute delirium, possibly related to anesthesia. Currently on a Precedex infusion Postoperative day #3 following a revision of the lumbar spine related to spondylolisthesis with a L4 to S1 fusion. History of cervical spine fusion, done January, Diabetes mellitus type 2, insulin-dependent Benign essential hypertension Hyperlipidemia Benign prostatic hyperplasia Obstructive sleep apnea, not maintained on CPAP Morbid obesity with a BMI of 40. Plan: Patient's medications, labs, chest x-ray, and other imaging reviewed Patient will maintain on BiPAP settings 14/6 and FiO2 35% overnight Start the patient on Zosyn Check procalcitonin level D-dimer was elevated at 2, patient will have a chest CTA to rule out PE Continue home dose of Lasix Continue bronchodilators Continue Precedex infusion, and titrate down as allowed Avoid benzodiazepines CT of the brain without contrast is ordered afternoon babysitter is at bedside Heparin for DVT prophylaxis Protonix for GI prophylaxis The patient is a full code Patient will be monitored in the intensive care unit I have personally seen and examined the patient, performed the documentation and the assessment and plan as written. Number of minutes spent on the visit:20 Time with Patient: Greater than 30
[2022-12-13] MEDS: HYDROmorphone 1 MG/ML 1 ML SYRINGE IVP PRN ×2 (01:59→05:10)
[2022-12-13 03:04] LABS: Basophils % (A) 0 %; Eosinophils # (A) 0.1 k/uL (0-0.7); Eosinophils % (A) 1 %; HCT 30.4 % (39.0-53.0); Hypochromasia Slight; Lymphocytes # (A) 1.3 k/uL (1.0-4.8); Lymphocytes % (A) 9 %; MCH 29.5 pg (25.0-35.0); MCHC 31.8 g/dL (31.0-37.0); MCV 92.5 fL (80.0-100.0); Mean Platelet Volume 8.9; Monocytes # (A) 0.8 k/uL (0-1.0); Monocytes % (A) 6 %; Neutrophils # (A) 11.7 k/uL (1.3-7.7); Neutrophils % (A) 81 %; Platelet Count 249 k/uL (150-450); RBC 3.29 m/uL (4.30-5.90); RDW 14.5 % (11.5-15.5); WBC 14.3 k/uL (3.8-10.6)
[2022-12-13 03:09] LABS: HGB 9.7 gm/dL (13.0-17.5)
[2022-12-13 03:19] LABS: African American GFR (CKD) >90 (>60 ml/min/1.73 sqM); Anion Gap 7 mmol/L; Blood Urea Nitrogen 14 mg/dL (9-20); Carbon Dioxide 27 mmol/L (22-30); Chloride 100 mmol/L (98-107); Glucose 141 mg/dL (74-99); Non-African American GFR(CKD) >90 (>60 ml/min/1.73 sqM); Potassium 3.9 mmol/L (3.5-5.1); Sodium 134 mmol/L (137-145)
--- NOTE | 2022-12-13 03:26 | CT ---
EXAM: CT Head Without Intravenous Contrast CLINICAL HISTORY: ITS.REASON CT Reason: altered mental status TECHNIQUE: Axial computed tomography images of the head/brain without intravenous contrast. CTDI is 25.1 mGy and DLP is 638.2 mGy-cm. This CT exam was performed using one or more of the following dose reduction techniques: automated exposure control, adjustment of the mA and/or kV according to patient size, and/or use of iterative reconstruction technique. COMPARISON: No relevant prior studies available. FINDINGS: Brain: No hemorrhage or mass effect. Ventricles: No hydrocephalus. Bones/joints: Unremarkable. Soft tissues: Unremarkable. Sinuses: No air fluid level. Mastoid air cells: Clear. IMPRESSION: No acute hemorrhage, hydrocephalus, or mass effect.
--- NOTE | 2022-12-13 04:35 | CT ---
EXAM: CT Angiography Chest With Intravenous Contrast CLINICAL HISTORY: ITS.REASON CT Reason: rule out PE TECHNIQUE: Axial computed tomographic angiography images of the chest with intravenous contrast. CTDI is 24 mGy and DLP is 638 mGy-cm. This CT exam was performed using one or more of the following dose reduction techniques: automated exposure control, adjustment of the mA and/or kV according to patient size, and/or use of iterative reconstruction technique. MIP reconstructed images were created and reviewed. COMPARISON: No relevant prior studies available. FINDINGS: Artifacts: Motion artifact degrades image quality and limits evaluation. Pulmonary arteries: Filling defects noted within subsegmental pulmonary arteries supplying the right middle lobe suggesting PE (series 502, image 127). Main pulmonary artery measures 3.6 cm in diameter suggesting pulmonary hypertension. Aorta: No acute findings. No thoracic aortic aneurysm. Lungs: A 4 mm calcified granuloma is seen in the left upper lobe. Mild pulmonary interstitial edema. Bronchial wall thickening, likely reactive, although concurrent infectious versus inflammatory airways disease may also be present. Pleural space: Small right and trace/small left pleural effusions with dependent and linear atelectasis involving right lung and the left lung base. No pneumothorax. Heart: Mild cardiomegaly. Mild coronary artery vascular calcifications. No significant pericardial effusion. No evidence of RV dysfunction. Mediastinum: Mild mediastinal lymphadenopathy, measuring up to 1.6 cm in short axis in the right paratracheal region, likely reactive. Bones/joints: Postoperative changes involving the cervical spine. No acute fracture. No dislocation. Soft tissues: Unremarkable. Lymph nodes: See above. Liver: Hepatomegaly with steatosis partially visualized. IMPRESSION: 1. Motion artifact degrades image quality and limits evaluation. Filling defects noted within subsegmental pulmonary arteries supplying the right middle lobe suggesting PE (series 502, image 127). 2. Small right and trace/small left pleural effusions with dependent and linear atelectasis involving right lung and the left lung base. Correlate clinically for superimposed infection. 3. Main pulmonary artery measures 3.6 cm in diameter suggesting pulmonary hypertension. 4. Mild cardiomegaly. <MYCVCSECTION> Communications: 12/13/22 04:47 Call Doctor Regarding Pulmonary Embolism, called MARIA DEL CARMEN Jean on 12/13 04:45 (-04:00)
[2022-12-13] MEDS ORDERED: HEPARIN SODIUM 1,000 UN/ML (10ML VL) IV PRN (05:08)
[2022-12-13] MEDS ORDERED: HEPARIN SODIUM 1,000 UN/ML (10ML VL) IV ONE (05:08)
[2022-12-13 05:27] LABS: Basophils % (A) 0 %; Eosinophils # (A) 0.1 k/uL (0-0.7); Eosinophils % (A) 1 %; HGB 10.1 gm/dL (13.0-17.5); Hypochromasia Slight; Lymphocytes # (A) 1.8 k/uL (1.0-4.8); Lymphocytes % (A) 14 %; MCH 29.1 pg (25.0-35.0); MCHC 31.5 g/dL (31.0-37.0); MCV 92.3 fL (80.0-100.0); Mean Platelet Volume 9.4; Monocytes # (A) 0.6 k/uL (0-1.0); Monocytes % (A) 5 %; Neutrophils # (A) 9.8 k/uL (1.3-7.7); Neutrophils % (A) 78 %; Platelet Count 239 k/uL (150-450); RBC 3.47 m/uL (4.30-5.90); RDW 14.4 % (11.5-15.5); WBC 12.6 k/uL (3.8-10.6)
[2022-12-13 05:33] LABS: Partial Thromboplastin Time 26.9 sec (22.0-30.0); Prothrombin Time 10.5 sec (9.0-12.0)
[2022-12-13] MEDS: HEPARIN SOD,PORK IN 0.45% NACL 25,000 UNIT in 0.45% NACL 1 250ML.BAG IV SCH ×2 (05:45→18:57)
[2022-12-13 06:28] LABS: Glucose,Whole Blood 140 mg/dL (70-110)
[2022-12-13] MEDS: oxyCODONE-APAP 10-325MG 1 EACH TAB PO PRN ×3 (06:47→18:52)
[2022-12-13] MEDS: INSULIN ASPART (NovoLOG) 100 UNIT/ML VIAL SQ SCH ×7 (06:48→21:23)
[2022-12-13] MEDS: PANTOPRAZOLE 40 MG TABLET PO SCH ×2 (06:48→16:09)
[2022-12-13] MEDS: LACTATED RINGERS 1,000 ML IV SCH (06:49)
[2022-12-13] MEDS: BUDESONIDE 0.5 MG/2 ML NEBU INHALATION SCH ×2 (07:47→21:10)
[2022-12-13] MEDS: IPRATROPIUM-ALBUTEROL 3 ML NEB INHALATION SCH ×4 (07:48→21:10)
--- NOTE | 2022-12-13 08:23 | US ---
EXAMINATION TYPE: US venous doppler duplex LE BI DATE OF EXAM: 12/13/2022 7:44 AM COMPARISON: NONE CLINICAL INDICATION: Male, 62 years old with history of rule out DVT; recent PE SIDE PERFORMED: Bilateral TECHNIQUE: The lower extremity deep venous system is examined utilizing real time linear array sonog sybil with graded compression, doppler sonography and color-flow sonography. VESSELS IMAGED: Common Femoral Vein Deep Femoral Vein Greater Saphenous Vein * Femoral Vein Popliteal Vein Small Saphenous Vein * Proximal Calf Veins (* superficial vessels) *Limitations due to patient's body habitus Grayscale, color doppler, spectral doppler imaging performed of the deep veins of the lower extremiti es. There is normal flow, compressibility, vascular waveforms. Right Leg: no evidence of DVT Left Leg: no evidence of DVT IMPRESSION: No ultrasound evidence for deep venous thrombosis of the bilateral lower extremities.
--- NOTE | 2022-12-13 08:56 | P.PN ---
Subjective Progress Note Date: 12/13/22 Principal diagnosis: 1. L4-5 L5-S1 Grade I unstable spondylolisthesis 2.Low back pain 3. LE paresthesia 4. LE weakness Patient seen and examined this morning. Patient was transferred to the ICU unit last night due to hypoxia and was placed on BiPAP. Due to an elevated d-dimer patient was ordered a CTA which was positive for a right pulmonary embolism. Patient was started on IV heparin. Patient is currently resting comfortably in bed. Patient is more alert and oriented this morning, although he is slightly confused about the events that had occurred over the past 2 days. When patient was asked why he was in the hospital, patient was unable to answer. When reminded that he had back surgery he stated that he remembered this, he was just unable to recall. There is a sitter at bedside. Surgical dressing to the lumbar spine is CDI, scant shadowing noted. Dressing will be changed tomorrow 12/14/22. Bautista catheter remains intact and patent. Encouraged patient to be up with all meals. Encourage patient to work with PT today. Objective - Vital Signs Vital signs: Vital Signs Temp 98 F 12/13/22 05:09 Pulse 65 12/13/22 06:30 Resp 16 12/13/22 06:30 BP 114/65 12/13/22 06:30 Pulse Ox 100 12/13/22 06:30 FiO2 35 12/13/22 04:04 Intake & Output 12/12/22 12/13/22 12/13/22 18:59 06:59 18:59 Intake Total 62.172 Output Total 1400 790 Balance -1400 727.828 Weight 117.5 kg Intake: Intake, IV Titration 62.172 Amount Dexmedetomidine/0.9% NaCl 62.172 (Pmx) 400 mcg In Empty Bag 1 bag @ 0.2 MCG/KG/HR 5.77 mls/hr IV .[id number] [facility] Rx#:[id number] Output: Urine 1400 790 Other: Voiding Method Indwelling Catheter Indwelling Catheter - Exam Physical Examination General: The patient is awake and alert, in no acute distress, continues to have increased confusion from baseline Skin: Skin is warm and dry with no obvious rashes or lesions. Surgical incision to the lumbar spine, edges are well approximated with kam intact. No drainage noted. Surgical dressing is clean dry and intact. Will change on 12/14/22. Eye: Pupils are equal, round and reactive to light, extra-ocular movements are intact; there is normal conjunctiva bilaterally. Neck: The neck is supple, there is no tenderness and ROM intact. Cardiovascular: There is a regular rate and rhythm. No murmur, rub or gallop is appreciated. Respiratory: Lungs are clear to auscultation, respirations are non-labored, breath sounds are equal. Gastrointestinal: Soft, non-distended, non-tender abdomen. Back: There is mild tenderness to palpation in the paralumbar region. There is no obvious deformity . Musculoskeletal: ROM limited secondary to pain and stiffness from surgical procedure. Muscle strength in all major muscle groups of bilateral upper extremities 5/5, bilateral lower extremities 4/5. Neurological: CN 2-12 intact. There are no obvious motor or sensory deficits. Movement and coordination equal and intact. Sensory exam to light touch intact C5-T1 and intact from L2-S1. Reflexes 2/4 in bilateral upper and lower extremities. Negative Hoffmans, babinski, and clonus signs. Psychiatric: Cooperative, appropriate mood & affect, normal judgment. - Labs CBC & Chem 7: 12/13/22 05:13 12/13/22 01:54 Labs: Abnormal Lab Results - Last 24 Hours (Table) 12/12/22 12/12/22 12/12/22 Range/Units 11:15 16:16 19:10 WBC (3.8-10.6) k/uL RBC (4.30-5.90) m/uL Hgb (13.0-17.5) gm/dL Hct (39.0-53.0) % Neutrophils # (1.3-7.7) k/uL Monocytes # (0-1.0) k/uL D-Dimer (<0.60) mg/L FEU ABG pH (7.35-7.45) ABG pCO2 (35-45) mmHg ABG pO2 (83-108) mmHg ABG HCO3 (21-25) mmol/L ABG Total CO2 (19-24) mmol/L ABG O2 Saturation (94-97) % Sodium (137-145) mmol/L Creatinine (0.66-1.25) mg/dL Glucose (74-99) mg/dL POC Glucose (mg/dL) 168 H 223 H (70-110) mg/dL Hemoglobin A1c 9.9 H (<=6.0) % Calcium (8.4-10.2) mg/dL Procalcitonin (0.02-0.09) ng/mL 12/12/22 12/12/22 12/12/22 Range/Units 19:29 19:35 19:35 WBC 18.2 H (3.8-10.6) k/uL RBC 3.92 L (4.30-5.90) m/uL Hgb 11.6 L (13.0-17.5) gm/dL Hct 37.3 L (39.0-53.0) % Neutrophils # 13.5 H (1.3-7.7) k/uL Monocytes # 1.3 H (0-1.0) k/uL D-Dimer 2.04 H (<0.60) mg/L FEU ABG pH 7.21 L (7.35-7.45) ABG pCO2 64 H (35-45) mmHg ABG pO2 (83-108) mmHg ABG HCO3 26 H (21-25) mmol/L ABG Total CO2 28 H (19-24) mmol/L ABG O2 Saturation 92.4 L (94-97) % Sodium (137-145) mmol/L Creatinine (0.66-1.25) mg/dL Glucose (74-99) mg/dL POC Glucose (mg/dL) (70-110) mg/dL Hemoglobin A1c (<=6.0) % Calcium (8.4-10.2) mg/dL Procalcitonin (0.02-0.09) ng/mL 12/12/22 12/12/22 12/12/22 Range/Units 19:35 19:35 19:47 WBC (3.8-10.6) k/uL RBC (4.30-5.90) m/uL Hgb (13.0-17.5) gm/dL Hct (39.0-53.0) % Neutrophils # (1.3-7.7) k/uL Monocytes # (0-1.0) k/uL D-Dimer (<0.60) mg/L FEU ABG pH (7.35-7.45) ABG pCO2 (35-45) mmHg ABG pO2 (83-108) mmHg ABG HCO3 (21-25) mmol/L ABG Total CO2 (19-24) mmol/L ABG O2 Saturation (94-97) % Sodium 135 L (137-145) mmol/L Creatinine 0.60 L (0.66-1.25) mg/dL Glucose 259 H (74-99) mg/dL POC Glucose (mg/dL) 266 H (70-110) mg/dL Hemoglobin A1c (<=6.0) % Calcium 8.3 L (8.4-10.2) mg/dL Procalcitonin 0.39 H (0.02-0.09) ng/mL 12/12/22 12/13/22 12/13/22 Range/Units 22:17 01:54 01:54 WBC 14.3 H (3.8-10.6) k/uL RBC 3.29 L (4.30-5.90) m/uL Hgb 9.7 L D (13.0-17.5) gm/dL Hct 30.4 L (39.0-53.0) % Neutrophils # 11.7 H (1.3-7.7) k/uL Monocytes # (0-1.0) k/uL D-Dimer (<0.60) mg/L FEU ABG pH (7.35-7.45) ABG pCO2 (35-45) mmHg ABG pO2 142 H (83-108) mmHg ABG HCO3 26 H (21-25) mmol/L ABG Total CO2 27 H (19-24) mmol/L ABG O2 Saturation 97.1 H (94-97) % Sodium 134 L (137-145) mmol/L Creatinine (0.66-1.25) mg/dL Glucose 141 H (74-99) mg/dL POC Glucose (mg/dL) (70-110) mg/dL Hemoglobin A1c (<=6.0) % Calcium 8.0 L (8.4-10.2) mg/dL Procalcitonin (0.02-0.09) ng/mL 12/13/22 12/13/22 Range/Units 05:13 06:25 WBC 12.6 H (3.8-10.6) k/uL RBC 3.47 L (4.30-5.90) m/uL Hgb 10.1 L (13.0-17.5) gm/dL Hct 32.0 L (39.0-53.0) % Neutrophils # 9.8 H (1.3-7.7) k/uL Monocytes # (0-1.0) k/uL D-Dimer (<0.60) mg/L FEU ABG pH (7.35-7.45) ABG pCO2 (35-45) mmHg ABG pO2 (83-108) mmHg ABG HCO3 (21-25) mmol/L ABG Total CO2 (19-24) mmol/L ABG O2 Saturation (94-97) % Sodium (137-145) mmol/L Creatinine (0.66-1.25) mg/dL Glucose (74-99) mg/dL POC Glucose (mg/dL) 140 H (70-110) mg/dL Hemoglobin A1c (<=6.0) % Calcium (8.4-10.2) mg/dL Procalcitonin (0.02-0.09) ng/mL Assessment and Plan Assessment: Postop day 3: L4-S1 decompression and fusion 1. L4-5 L5-S1 Grade I unstable spondylolisthesis 2.Low back pain 3. LE paresthesia 4. LE weakness Plan: -Appreciate bridal consultant and team management. -Activity: Ambulate QID, OOB all meals, up and about, limit lifting bending twisting to less than 5 lbs. Use walker or cane if needed for stability. -Daily PT/OT, increase ambulation strength and balance. -Brace when up and about, not needed in bed or chair -Pain control: Adequate at this time -Meds: reviewed -GI ppx: senna, Miralax -DC bautista when up and about, bedside commode if needed -DVT PPX: Heparin -Hygiene: Shower today. Maintain dressing clean and dry. Meticulous cleaning after BMs away from the incision site -Encourage IS 10x/hr -Dispo: Anticipate discharge home with homecare vs [facility] when medically stable. *I reviewed and discussed this case with my attending Dr. Washington, whom has reviewed this chart and films and is in agreement with assessment and plan of care as outlined above. I have personally seen and examined the patient, performed the documentation and the assessment and plan as written. Number of minutes spent on the visit: 20m.
[2022-12-13] MEDS: MULTIVITAMINS, THERA 1 EACH TAB PO SCH (09:36)
[2022-12-13] MEDS: POTASSIUM CHLORIDE ER 10 MEQ TAB.ER.PRT PO SCH (09:36)
[2022-12-13] MEDS: FUROSEMIDE 20 MG TAB PO SCH (09:37)
[2022-12-13] MEDS: CHOLECALCIFEROL 25 MCG (1000 IU) TABLET PO SCH (09:37)
[2022-12-13] MEDS: ASPIRIN 81 MG PO SCH (09:37)
[2022-12-13] MEDS: ASCORBIC ACID 500 MG TAB PO SCH (09:37)
[2022-12-13] MEDS: PROPRANOLOL 20 MG TAB PO SCH ×2 (09:38→20:24)
[2022-12-13] MEDS: SERTRALINE 100 MG TAB PO SCH ×2 (09:38→20:24)
[2022-12-13] MEDS: lamoTRIgine 100 MG TAB PO SCH ×3 (09:38→20:25)
[2022-12-13] MEDS: LORATADINE 10 MG TAB PO SCH (09:38)
[2022-12-13 10:25] VITALS: BMI 40.6
[2022-12-13] MEDS: LOSARTAN 50 MG TAB PO SCH (11:09)
[2022-12-13] MEDS: cloNIDine HCL 0.1 MG TAB PO SCH ×3 (11:09→20:26)
[2022-12-13] MEDS: hydroCHLOROthiazide 12.5 MG CAP PO SCH (11:09)
[2022-12-13 11:25] LABS: Glucose,Whole Blood 52 mg/dL (70-110)
[2022-12-13 11:42] LABS: Glucose,Whole Blood 69 mg/dL (70-110)
[2022-12-13 12:02] LABS: Glucose,Whole Blood 78 mg/dL (70-110)
--- NOTE | 2022-12-13 12:25 | P.CNNES ---
History of Present Illness Consult date: 12/13/22 Requesting physician: Júnior Meza Reason for Consult: delerium, white matter disease History of Present Illness: This is a 62-year-old gentleman who presented to our facility on December 10 for elective revision of lumbar spondylolisthesis requiring L4 through S1 fusion. Neurology is consulted for delirium. It seems the patient has multiple medical issues and one of him as observed sleep apnea and not maintain on CPAP and per the ICU nurse patient ABG was done and he is a was acidotic and CO2 was elevated and after receiving the BiPAP the his mentation is improved. Per the ICU nurse his feels he is back to baseline. Chest x-ray shows a by basilar infiltrates concerning for pneumonia. Patient is feeling much better denies any headaches, any focal weakness. He continues to have this lower back pain. Some other workup during our facility consisted of: Patient the presented with afebrile but yesterday he had a temperature of 101.6. Ammonia 15 TSH is 1.1. Glucose has been in the range of 100 to 200s appear. Patient had 2 episodes where the sugar was in the 50s to 60s which were yesterday. CT of the head is reported as no acute hemorrhage, hydrocephalus or mass effect. Personally reviewed the CT of the head and agree with the report. Review of Systems Review of system: The 12 point system was reviewed and apparent positive and negative per HPI. Past Medical History Past Medical History: Diabetes Mellitus, GERD/Reflux, Hearing Disorder / Deafness, Hyperlipidemia, Hypertension, Prostate Disorder, Sleep Apnea/CPAP/BIPAP Additional Past Medical History / Comment(s): supposed to use CPAP-NOT USING, celiac disease, radha. arms/LEGS N/T, pain, frequent falls related to failed back surg. per spouse, HX ASPIRATION PNEUMONIA 07/2022, [facility] History of Any Multi-Drug Resistant Organisms: None Reported Past Surgical History: Back Surgery, Hernia Repair, Tonsillectomy Additional Past Surgical History / Comment(s): laminectomy 2013, lumbar fusion 2017, hernia repair x2, cerivcal FUSION surgery 01/2022. HERNIA X 2, COLONOSCOPY, Past Anesthesia/Blood Transfusion Reactions: Previous Problems w/ Anesthesia Additional Past Anesthesia/Blood Transfusion Reaction / Comment(s): wakes up combative after anesthesia Past Psychological History: Anxiety, Depression Smoking Status: Former smoker Past Alcohol Use History: None Reported Additional Past Alcohol Use History / Comment(s): quit smoking >20 yrs. ago, 1ppd for 20 yrs. Past Drug Use History: None Reported Additional Drug Use History / Comment(s): occasional edibles - Past Family History Mother Family Medical History: No Reported History Medications and Allergies Home Medications Medication Instructions Recorded Confirmed Type Insulin Degludec [Tresiba 62 unit SQ HS 04/05/17 12/10/22 History Flextouch U-100] Multivitamins, Thera [Multivitamin 1 tab PO DAILY 04/05/17 12/10/22 History (formulary)] Propranolol HCl [Inderal] 80 mg PO TID 04/17/17 12/10/22 History Ascorbic Acid [Vitamin C] 500 mg PO DAILY 01/23/22 12/10/22 History Cholecalciferol [Vitamin D3 (25 50 mcg PO DAILY 01/23/22 12/10/22 History Mcg = 1000 Iu)] Fluvastatin Sodium [Lescol Xl] 80 mg PO HS 01/23/22 12/10/22 History INSULIN ASPART (NovoLOG) [NovoLOG 30 unit SQ QID 01/23/22 12/10/22 History (formulary)] Loratadine [Claritin] 10 mg PO DAILY 01/23/22 12/10/22 History Nortriptyline [Pamelor] 100 mg PO HS 01/23/22 12/10/22 History Sertraline [Zoloft] 100 mg PO BID 01/23/22 12/10/22 History oxyCODONE-APAP 10-325MG [Percocet 1 tab PO QID 01/23/22 12/10/22 History 10-325 mg] Acetaminophen [Tylenol 8 Hour] 1,300 mg PO TID PRN 12/06/22 12/10/22 History Aspirin EC [Ecotrin Low Dose] 81 mg PO DAILY 12/06/22 12/10/22 History Budesonide/Glycopyr/Formoterol 2 puff INHALATION BID 12/06/22 12/10/22 History [Breztri Aerosphere Inhaler] Furosemide [Lasix] 20 mg PO DAILY 12/06/22 12/10/22 History Losartan/Hydrochlorothiazide 1 each PO DAILY 12/06/22 12/10/22 History [Hyzaar 100-12.5 Tablet] Pantoprazole [Protonix] 40 mg PO BID 12/06/22 12/10/22 History Potassium Chloride [Klor-Con M10] 10 meq PO DAILY 12/06/22 12/10/22 History Tamsulosin [Flomax] 0.4 mg PO HS 12/06/22 12/10/22 History cloNIDine HCL [Catapres] 0.2 mg PO TID 12/06/22 12/10/22 History lamoTRIgine [LaMICtal] 200 mg PO BID 12/06/22 12/10/22 History traZODone HCL [Desyrel] 100 mg PO HS 12/06/22 12/10/22 History Allergies Allergy/AdvReac Type Severity Reaction Status Date / Time gluten Allergy Unknown Verified 12/13/22 10:55 tetracycline AdvReac TURNED Verified 12/10/22 09:46 TEETH DARK Physical Examination - Vital Signs Vital Signs: Vital Signs Temp Pulse Pulse Resp BP BP Pulse Ox 12/13/22 10:00 66 16 117/63 97 12/13/22 09:30 66 21 108/59 95 12/13/22 09:00 66 12 132/61 97 12/13/22 08:30 67 12 123/61 95 12/13/22 08:00 97.6 F 67 16 120/71 98 12/13/22 07:47 100 12/13/22 07:30 64 12 129/66 99 12/13/22 07:00 68 14 119/64 100 12/13/22 06:30 65 16 114/65 100 12/13/22 06:00 66 13 124/80 100 12/13/22 05:54 98 12/13/22 05:30 66 14 101/58 100 12/13/22 05:09 98 F 68 12 119/64 99 12/13/22 05:00 61 15 90/49 99 12/13/22 04:30 61 22 92/53 99 12/13/22 04:04 12/13/22 04:00 98.6 F 65 17 98/56 100 12/13/22 03:30 67 18 100/56 100 12/13/22 03:00 68 18 108/58 100 12/13/22 02:30 65 16 92/55 99 12/13/22 02:00 62 18 90/59 100 12/13/22 01:30 64 19 86/49 99 07/06/23 01:00 63 14 104/57 98 12/13/22 00:30 62 19 107/58 99 12/13/22 00:27 12/13/22 00:00 98.6 F 64 18 99/55 99 12/12/22 23:30 64 18 100/56 99 12/12/22 23:00 64 15 104/56 99 12/12/22 22:30 68 22 91/58 100 12/12/22 22:20 12/12/22 22:00 70 24 97/53 100 12/12/22 21:55 12/12/22 21:30 75 24 90/50 100 12/12/22 21:00 100 F H 80 23 99/54 100 12/12/22 20:43 87 12/12/22 20:35 81 12/12/22 20:00 101.6 F H 70 24 177/84 99 12/12/22 19:55 12/12/22 19:36 90 L 12/12/22 14:11 97.3 F L 84 18 117/68 97 FiO2 12/13/22 10:00 12/13/22 09:30 12/13/22 09:00 12/13/22 08:30 12/13/22 08:00 12/13/22 07:47 12/13/22 07:30 12/13/22 07:00 12/13/22 06:30 12/13/22 06:00 12/13/22 05:54 12/13/22 05:30 12/13/22 05:09 12/13/22 05:00 12/13/22 04:30 12/13/22 04:04 35 12/13/22 04:00 35 12/13/22 03:30 12/13/22 03:00 12/13/22 02:30 12/13/22 02:00 12/13/22 01:30 12/13/22 01:00 12/13/22 00:30 12/13/22 00:27 35 12/13/22 00:00 35 12/12/22 23:30 12/12/22 23:00 12/12/22 22:30 12/12/22 22:20 35 12/12/22 22:00 12/12/22 21:55 50 12/12/22 21:30 12/12/22 21:00 12/12/22 20:43 80 12/12/22 20:35 12/12/22 20:00 50 12/12/22 19:55 100 12/12/22 19:36 100 12/12/22 14:11 Intake and Output 12/12/22 12/13/22 12/13/22 22:59 06:59 14:59 Intake Total 8.27 53.902 140 Output Total 1000 790 125 Balance -991.73 -736.098 15 Intake: IV 40 .9 KVO 40 Intake, IV Titration 8.27 53.902 100 Amount Dexmedetomidine/0.9% NaCl 8.27 53.902 (Pmx) 400 mcg In Empty Bag 1 bag @ 0.2 MCG/KG/HR 5.77 mls/hr IV .[id number] [facility] Rx#:[id number] Piperacillin-Tazobactam 3 100 .375 gm In Sodium Chloride 0.9% 100 ml @ 25 mls/hr IVPB Q8HR [facility] Rx# :[id number] Output: Urine 1000 790 125 Other: Voiding Method Indwelling Catheter Indwelling Catheter Weight 117.5 kg GENERAL: The patient is lying in bed and is not in acute distress. NEUROLOGICAL: Higher mental function: The patient is awake, alert, oriented to self, place and time. Patient is following simple commands. No aphasia and no neglect. Cranial nerves: The pupils are round, equal and reactive to light and accommodation. Visual rao are full to confrontation throughout. Extraocular movement is intact no nystagmus is noted. Facial sensation is normal to touch throughout. The facial strength is normal throughout. Hearing is normal bilaterally to hand rub. Tongue is midline and moved [id number] without any difficulty. No dysarthria is noted. Shoulder shrug is normal bilaterally. Motor: The strength is 5 over 5 throughout uppers. While lowers are limited because of pain but is lifting above gravity. Normal tone and bulk. Cerebellum: Normal finger to nose bilaterally. Sensation: Sensation is normal to touch throughout. Reflexes (right/left): 2+ thorughout uppers while lowers are not assessed tavo use of pain Plantars are downgoing bilaterally. Results - Laboratory Findings CBC and BMP: 12/13/22 05:13 12/13/22 01:54 Abnormal Lab Findings: Abnormal Labs 12/10/22 12/10/22 12/10/22 10:34 16:54 20:20 WBC RBC Hgb Hct MCHC Neutrophils # Monocytes # D-Dimer ABG pH ABG pCO2 ABG pO2 ABG HCO3 ABG Total CO2 ABG O2 Saturation Sodium Creatinine Glucose POC Glucose (mg/dL) 258 H 321 H 294 H Hemoglobin A1c Calcium Procalcitonin 12/11/22 12/11/22 12/11/22 06:09 06:24 06:24 WBC 12.28 H RBC 3.69 L Hgb 10.9 L Hct 34.2 L MCHC 31.9 L Neutrophils # 9.16 H Monocytes # 1.02 H D-Dimer ABG pH ABG pCO2 ABG pO2 ABG HCO3 ABG Total CO2 ABG O2 Saturation Sodium Creatinine Glucose 170 H POC Glucose (mg/dL) 149 H Hemoglobin A1c Calcium Procalcitonin 12/11/22 12/11/22 12/11/22 11:40 16:31 22:42 WBC RBC Hgb Hct MCHC Neutrophils # Monocytes # D-Dimer ABG pH ABG pCO2 ABG pO2 ABG HCO3 ABG Total CO2 ABG O2 Saturation Sodium Creatinine Glucose POC Glucose (mg/dL) 172 H 129 H 156 H Hemoglobin A1c Calcium Procalcitonin 12/12/22 12/12/22 12/12/22 05:48 06:15 11:15 WBC RBC Hgb Hct MCHC Neutrophils # Monocytes # D-Dimer ABG pH ABG pCO2 ABG pO2 ABG HCO3 ABG Total CO2 ABG O2 Saturation Sodium Creatinine Glucose POC Glucose (mg/dL) 66 L 57 L Hemoglobin A1c 9.9 H Calcium Procalcitonin 12/12/22 12/12/22 12/12/22 16:16 19:10 19:29 WBC RBC Hgb Hct MCHC Neutrophils # Monocytes # D-Dimer ABG pH 7.21 L ABG pCO2 64 H ABG pO2 ABG HCO3 26 H ABG Total CO2 28 H ABG O2 Saturation 92.4 L Sodium Creatinine Glucose POC Glucose (mg/dL) 168 H 223 H Hemoglobin A1c Calcium Procalcitonin 12/12/22 12/12/22 12/12/22 19:35 19:35 19:35 WBC 18.2 H RBC 3.92 L Hgb 11.6 L Hct 37.3 L MCHC Neutrophils # 13.5 H Monocytes # 1.3 H D-Dimer 2.04 H ABG pH ABG pCO2 ABG pO2 ABG HCO3 ABG Total CO2 ABG O2 Saturation Sodium 135 L Creatinine 0.60 L Glucose 259 H POC Glucose (mg/dL) Hemoglobin A1c Calcium 8.3 L Procalcitonin 12/12/22 12/12/22 12/12/22 19:35 19:47 22:17 WBC RBC Hgb Hct MCHC Neutrophils # Monocytes # D-Dimer ABG pH ABG pCO2 ABG pO2 142 H ABG HCO3 26 H ABG Total CO2 27 H ABG O2 Saturation 97.1 H Sodium Creatinine Glucose POC Glucose (mg/dL) 266 H Hemoglobin A1c Calcium Procalcitonin 0.39 H 12/13/22 12/13/22 12/13/22 01:54 01:54 01:54 WBC 14.3 H RBC 3.29 L Hgb 9.7 L D Hct 30.4 L MCHC Neutrophils # 11.7 H Monocytes # D-Dimer ABG pH ABG pCO2 ABG pO2 ABG HCO3 ABG Total CO2 ABG O2 Saturation Sodium 134 L Creatinine Glucose 141 H POC Glucose (mg/dL) Hemoglobin A1c Calcium 8.0 L Procalcitonin 1.08 H 12/13/22 12/13/22 05:13 06:25 WBC 12.6 H RBC 3.47 L Hgb 10.1 L Hct 32.0 L MCHC Neutrophils # 9.8 H Monocytes # D-Dimer ABG pH ABG pCO2 ABG pO2 ABG HCO3 ABG Total CO2 ABG O2 Saturation Sodium Creatinine Glucose POC Glucose (mg/dL) 140 H Hemoglobin A1c Calcium Procalcitonin Assessment and Plan Assessment: Delirium due to multifactorial: Hypoxic and hypercapnic respiratory failure, possible aspiration pneumonia, hypoglycemic event possibly related to anesthesia, hospital induced---mentation has improved Lumbar spondylolithesis with revision over L4 S1 fusion on 12/10/22 Acute hypoxic and hypercapnic respiratory failure with possible aspiration Obstructive sleep apnea not maintain on CPAP History of cervical fusion Diabetes mellitus Morbid obesity Plan: CT of the head is negative. B12 and folate is ordered by orthopedic surgery team I ordered routine EEG to rule out any underlying seizure or discharges. We'll defer the rest of admitted to the primary team and rest of specialist Plan is discussed with the patient and his nurse who is at bedside. Thank you for the consultation. Time with Patient: Greater than 30
--- NOTE | 2022-12-13 13:51 | P.OP ---
Date of Procedure: 12/10/22 Preoperative Diagnosis: 1. L5-S1 ASD with Spondylolisthesis 2. Pseudoarthrosis L4-5 3. Low back pain 4. LE weakness with radiculopathy Postoperative Diagnosis: 1. L5-S1 ASD with Spondylolisthesis 2. Pseudoarthrosis L4-5 3. Low back pain 4. LE weakness with radiculopathy Procedure(s) Performed: 1. L5-S1 posteriolateral and interbody fusion (82362) 2. L4-5 revision posteriolateral fusion (10521)/59 3. L4-S1 segmental instrumentation (91040) 4. Decompression for neural decompression and cage placement L4-S1 (87992, 06943) 5. Removal of screws L4-5 6. Exploration of fusion L4-5 7. Use of Wilmore Zackery for screw placement (12722) Use of IONM Implants: -[place] screws -Globus Sable cage -MagnatOs, ifactor, allocell, autograft Anesthesia: GETA Surgeon: Naveed [place] Blade Sharpener #1: Robby Wright (Was present and assisted with all aspects of the case from positioning to dressing placement) Estimated Blood Loss (ml): 450 IV fluids (ml): 1,600 Urine output (ml): 650 Pathology: none sent Condition: stable Disposition: PACU Indications for Procedure: Spine Surgery Clinical and Risk Review Mao Suárez is a 62-year-old male presenting for evaluation of low back pain and lower extremity weakness lower extremity radiculopathy. It was my pleasure to have seen and examined Mao Suárez. In our visit today we have had a chance to go over subjective complaints, physical examination findings and treatments including the natural course history without intervention and various interventional options. The patients imaging demonstrates adjacent segment disease L5-S1 with grade 1 spondylolisthesis. Severe spondylosis with moderate stenosis noted. Likely pseudoarthrosis L4 5 On physical exam, Mao Suárez. demonstrates lower extremity weakness progressive lower extremity giving out low back pain and severe. I have explained to the patient that as their condition progresses it will cause further neurological deficits and eventual paralysis. Based on the patients imaging, physical exam, and the rapid progression and disabling nature of their symptoms, at this time I recommend surgery in the form or a: Revision decompression fusion L4 through S1. I discussed the risk and benefits of this procedure at length withMao Suárez.. The patient and his spouse agreed to considered pursuing the procedure abovementioned. Prior to surgery, she should follow up with her PCP (Cardio, ID, IM etc) for clearance. Questions were invited and answered, and the patient wishes to proceed as outlined below. Currently, I am recommendin. Revision decompression fusion L4 through S1 2. Follow up with PCP for surgical clearance 3. Review of surgical risks and benefits as well as an educational packet on the proposed surgical procedure. Risks: All surgical procedures come with inherent risks, including those related to positioning, anesthesia, intraoperative findings, and postoperative complications. It is important to understand that surgery does not come with any guarantee of a successful outcome as complications and adverse events are always possible. The patient was given a handout in office today discussing the surgical procedure and risks associated with the intervention, both of which were discussed with the patient. These risks include but are not limited to the following: * Experiencing same, different or even worse symptoms in back, neck, arms, or legs compared to before surgery. * Requiring further surgery or other forms of treatment presently or at some time in the future at same or other levels of the intended spine surgery. * On an extreme but fortunately relatively rare basis severe complication such as blindness, stroke, heart attack, temporary and/or permanent nerve injury, paralysis, coma, or may occur, sometimes without known ex planation. * Surgical complications may include but are not limited to risk of infection, fluid accumulation in the surgical dissection site, including a seroma or hematoma, that requires additional surgery, wound drainage, bleeding, new numbness or weakness, vision changes/loss, spinal fluid leakage, non-healing and/or infected incision, headaches, difficulty or inability to swallow, hoarseness, hemopneumothorax, pneumothorax, impotence, retrograde ejaculation, vaginal dryness; injury to nerves, spinal cord, blood vessels, lymphatics or other vital organs (i.e., bowel injury, injury to the great vessels); heterotopic bone formation; complications related to the hardware such as screws, rods, cages including misplaced hardware, device failure, instrumentation at the wrong spine level, hardware fracture/breakage, or hardware loosening; vertebral failure of the spinal column above or below the newly placed hardware; retained surgical instrumentations or devices and the need for further surgery. * Medical risks of the planned spine surgery include but are not limited to generalized Infections to the whole body or local areas outside of the surgical site (sepsis), heart attack, bleeding, anaphylaxis, meningitis, seizure, epilepsy, hearing loss, burn resendiz, laceration of the head or other areas of the body, bruising, hypersensitivity of the skin, bladder over distension; allergic reaction; shoulder injury related to positioning; fat, blood and air clots to other areas of the body like heart, lungs, brain; failure of internal organs such as lungs, kidneys, liver and excessive bleeding. If blood transfusions are necessary, note that transfusions may cause intolerance reactions such as anaphylaxis or other complex reactions. * Despite best efforts, the results of spine surgery might not heal in terms of bone, soft tissues such as skin, fascia, ligaments, and joints. Additionally, in order to achieve best possible results, spine surgery may be carried out beyond the initially planned levels and involve decompression, fusion including insertion of hardware at levels other than the original intended area of surgical interest change some portions of the procedure in order to ensure the best possible outcomes. * With spine surgery and spinal fusion, there are different off label uses of instrumentation (devices, implants and hardware) as well as biological substances (bone morphogenic proteins, demineralized bone matrix) as well as using extra bone from allograft sources (i.e. cadaver bone) or autograft (iliac crest bone, ribs, or the spine itself). The patient has been given information about these practices and their inherent risks and benefits. The patient has had a chance to review all the listed information, has been given print outs detailing this information, and has had all his/her questions answered to their satisfaction. It was my pleasure to have seen and examined Mao Suárez.. In our visit today we have had a chance to go over my understanding of our patient's current condition, the natural course history without intervention and various interventional options. Questions were invited and answered, and the patient wishes to proceed as outlined above. I have seen and examined the patient for 25 minutes and we have spent more than 50% of the time in repeat and detailed coun seling about the patient's condition, its natural course history with out and as much as can be predicted with surgery and re-review of various surgical treatment options. In conclusion, Mao Suárez. and his spouse requested we proceed with the above suggested surgery and are willing to accept risks and limitations of the suggested surgery as nature of the disease process and our best attempts at treatment for the condition. Thank you again for allowing us to be part of your patient's care. Please don't hesitate to contact me if you have any further questions. Signed and authenticated by: Naveed Chan Ankit Valdez [facility] [address], [address] [place] [address] Description of Procedure: L4-S1 open Decompression and fusion (zackery) The patient was seen and examined in the preoperative area.All preoperative protocols were followed.Informed consent was obtained, risks and benefits of the procedure were discussed at length.Risks including bleeding infection damage to the surrounding tissue and risk of re-operation were discussed with the patient.Risk of anesthesia up to and including was discussed with the patient.These are outlined in the risk review.They were willing to accept these risks and all the risks of surgery.The patient was given a weight-based dose of antibiotics in the form of 2 g Ancef.The patient was seen and evaluated by the anesthesia team who deemed them fit for surgery. The site was marked, the patient was willing to proceed with the procedure. The patient was transferred to the operative suite by the Department of anesthesia. They were then drifted off to sleep by the department anesthesia and GETA was performed. The patient tolerated this well. Estrada catheter was placed by nursing staff, a-traumatically. Once confirmation of lines and ventilation the patient was transferred to a prone Solo table very carefully. All bony prominences including wrists, elbows, axilla, chest, hips, and thighs, and feet were padded very well. Special attention was paid to the genitalia, and these were padded accordingly. SCDs were placed on bilateral lower extremities and were connected. Arms were well padded and placed on arm boards up and out in the 90/90 position. Once in position, again we confirmed good ventilation capabilities and that lines were running appropriately. The patients Lumbar spine was then exposed. 1010s were placed outlining the incision site. Standard alcohol was used to clean the incision site and allowed to dry. C-arm was used to needle localize the pedicles at L4-S1 and bio-meli the patient and confirm level for incision which was marked with a skin marker. Operative briefing was performed with all teams and everyone in agreement to proceed. The patient was then prepped and draped in a normal sterile fashion. Timeout was then performed, and all parties agreed with the procedure to be performed. Midline skin incision was made over the previously bio-marked area and dissection taken down over the SP of L3-S1. L4-S1 was taken out over facet joints and TPs and a penfield 4 used to meli the L4 pedicle. Previous hardware was identified at L4-5 and tested. Screws at L4 and L5 were loose b/l. Fusion was explored. There was still some micromotion noted at this level. Lateral image used to confirm levels. Once confirmed, screws were proceeded to be placed b/l at pedicles from L4-S1 using AmpliSense Navigation. An SP clamp was used, 3D C arm spin obtained and confirmed to be accurate. Once this was confirmed screws were placed using a navigated alan, navigated awl-tap and navigated sales route driver. Once screws were placed they were confirmed to be in good position using AP and Lateral fluoroscopy. The wound was then irrigated. Screws were tested and all tested above 20 mA. We then proceeded to decompression and cage placement. Attention was then turned to inter-body fusion at L5-S1. Bilateral laminectomy, complete facetectomy and foraminotomy performed at L5-S1 using high speed alan and Kerrison rongure. The ligamentum was removed and dural sac decompressed. Exiting and traversing roots visualized and decompressed. Neural elements were then protected, and disc space accessed with an osteotome. Sequential shaving then done under lateral imaging and complete discectomy performed using edenilson, pituitary and curette. Once good bleeding endplates accomplished and good height gnosticism with trials, a combination of autograft, allograft and synthetic placed anterior in the disc space. The cage was then selected and impacted into place under lateral imaging. The cage was then expanded restoring height, lordosis and alignment. The cage was backfilled with bone graft through a funnel. The vineyard tender removed and the area inspected. Good cage placement, stable cage and no injuries. Area was irrigated copiously, and meticulous hemostasis achieved. The tubular retractor was then removed under direct visualization. Attention was then turned to posteriolateral fusion. High speed alan was used to decorticate TPs b/l From L4-S1 and sacral ala. Rods were then sized and selected and placed into S1 screws b/l. Set screws locked these in place and then sequentially reduced into L4 and L5 b/l for alignment gnosticism. This was accomplished. Set screws were then all placed and final tightened. A cross link was selected and placed and final tightened. The wound was the irrigated with 3L Ancef irrigation, 3L gentamicin irrigation and 3L NSS. Surgical was placed over the dura. Autograft and MagnatOs then placed in the posteriolateral gutters and impacted into place. Deep drain placed and secured to the skin. Final images confirmed good placement of hardware and good reduction of listhesis as well as gnosticism of height and lordosis. Facia was then closed with #1 PDS. Deep subq closed with 0 Vicryl. Superficial subq closed with 2-0 Vicryl and skin with kam. Wound edges approximated very well. Wound was then cleaned with alcohol and dried. Wounds dressed with Optifoam dressings. The patient was then transferred off the table back to their hospital bed a- traumatically.They were extubated by the department of anesthesia.They were then transferred to PACU in stable condition having tolerated the procedure with no complications.
--- NOTE | 2022-12-13 14:10 | P.PN ---
Progress Note - Text Progress Note Date: 12/13/22 Interval hx: Patient was seen today for psych follow up for delirium. Patient was sitting on his chair today in the ICU with his and his daughter decide. Patient apparnetly had a PE yesterday and needed transfer to the ICU. He was agreeable to speak to public relations writer in front of them today. He claims that he is doing "much better" today and appears to be calmer in the interaction initially and more appropriate. He is denying any depression or anxiety at this time. She asked questions about his medications and public relations writer relayed the recommendations about titrating back/down the opiates however patient became fairly resistant to this and argued with public relations writer about it. He states that he did not sleep fairly last night. Cabinet Professional answered his many questions as he could've both medications and his diagnosis. Patient requested to speak with public relations writer privately without his family in the room afterwards and mentioned not trusting his with his medicartions and and also money. He claims that "you guys dont beleive me, only her". Patient claims that he is eatinhg fairly, improved concentration. denying any AH or VH and denies any SI or HI. denies any reactions from the meds. Mental status exam: General Appearance: Patient appears to be overweight, balding head, stated age is alert, directable, and attempts to be cooperative. argumentative at times. Patient appears to have fair hygiene and grooming wearing hospital gown with improving eye contact Behavior: Patient is calmly sitting on the chair without any agitated behavior. directable. Speech: Patient's speech is fluent and nonpressured. Mood/Affect: Patient reports their mood is "better", affect is congruent Suicidality/Homicidality: Patient denies having any suicidal or homicidal ideation intent or plan. Perceptions: Patient denies any visual hallucinations and denies any auditory hallucinations Though content/process: more logical today, argumentative about his pain meds. Memory and concentration: AOX3, improved concentration span. Can spell "WORLD" backwards Judgment and insight: poor IMPRESSIONS: Delirium likely secondary to medications like opioids history of depression PLAN: -At this time patient DOES NOT meet criteria for inpatient psychiatric admission. -Patient DOES NOT have decision making capacity at this time and is unable to reason through and communicate/appreciate the risks, benefits and alternatives to treatment. 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 restart trazodone 50 mg qhs for insomnia, increase Risperdal 2 mg by mouth daily at bedtime for delirium/psychosis, continue Zoloft as prescribed and Lamictal as prescribed. prolixin IM and PO prns for agitation/psychosis. -public relations writer spoke with pts nurse afterwards to relay recs -at this time psychiatry will sign off -Please contact with any questions.
--- NOTE | 2022-12-13 15:17 | CA ---
Transthoracic Echo Report Name: Mao Suárez Age: 62 Gender: M : 1960 Exam Date: 12/13/2022 07:59 Exam Location: [facility] Ht (in): 67 Wt (lb): 259 Ordering Physician: Sherwin Jean Attending/Referring Phys: [place] Ragger Isabella Brar RDCS Procedure CPT: Indications: PE; Evaluate RV strain Cardiac Hx: Technical Quality: Technically difficult study Contrast 1: Lumason Total Dose (mL): 3 Contrast 2: Total Dose (mL): MEASUREMENTS (Male / Female) Normal Values 2D ECHO LV Diastolic Diameter PLAX 4.9 cm 4.2 - 5.9 / 3.9 - 5.3 cm LV Systolic Diameter PLAX 3.1 cm IVS Diastolic Thickness 1.5 cm 0.6 - 1.0 / 0.6 - 0.9 cm LVPW Diastolic Thickness 1.5 cm 0.6 - 1.0 / 0.6 - 0.9 cm LV Relative Wall Thickness 0.6 RV Internal Dim ED PLAX 2.9 cm LA Systolic Diameter LX 3.5 cm 3.0 - 4.0 / 2.7 - 3.8 cm LA Volume 83.3 cm??? 18 - 58 / 22 - 52 cm??? M-MODE Aortic Root Diameter MM 3.5 cm MV E Point Septal Separation 1.1 cm AV Cusp Separation MM 2.1 cm DOPPLER AV Peak Velocity 147.8 cm/s AV Peak Gradient 8.7 mmHg MV Area PHT 3.8 cm??? Mitral E Point Velocity 131.4 cm/s Mitral A Point Velocity 77.4 cm/s Mitral E to A Ratio 1.7 MV Deceleration Time 197.4 ms MV E' Velocity 7.8 cm/s Mitral E to MV E' Ratio 16.9 TR Peak Velocity 274.9 cm/s TR Peak Gradient 30.2 mmHg Right Ventricular Systolic Press 35.2 mmHg FINDINGS Left Ventricle Left ventricular ejection fraction is estimated at 50-55 %. Left ventricular cavity size normal. Moderate concentric left ventricular hypertrophy. Right Ventricle Normal right ventricular size and function. Right ventricular systolic pressure within normal limits. Right Atrium Normal right atrial size. Left Atrium Severely increased left atrial volume. Mildly increased left atrial area. Mitral Valve Structurally normal mitral valve. Mild mitral regurgitation. Aortic Valve Trileaflet aortic valve. No aortic valve stenosis or regurgitation. Tricuspid Valve Structurally normal tricuspid valve. Mild tricuspid regurgitation. Pulmonic Valve Structurally normal pulmonic valve. No pulmonic regurgitation. Pericardium No pericardial effusion. Aorta Normal size aortic root and proximal ascending aorta. CONCLUSIONS Left ventricle hypertrophy with preserved systolic function Previewed by: Dr. Salty Carson MD (Electronically Signed) Final Date: 13 December 2022 15:17
[2022-12-13 16:11] LABS: Glucose,Whole Blood 74 mg/dL (70-110)
[2022-12-13 19:49] LABS: Appearance,Urine Turbid (Clear); Bilirubin,Urine Negative (Negative); Blood,Urine Moderate (Negative); Color,Urine Yellow; Glucose,Urine (UA) Negative (Negative); Ketones,Urine 1+ (Negative); Leukocyte Esterase,Urine Moderate (Negative); Nitrite,Urine Negative (Negative); Protein,Urine 1+ (Negative); RBC,Urine >182 /hpf (0-5); Specific Gravity,Urine 1.045 (1.001-1.035); Squamous Epithelial Cell,Urine <1 /hpf (0-4); Urobilinogen,Urine <2.0 mg/dL (<2.0); WBC,Urine 13 /hpf (0-5)
[2022-12-13 19:52] LABS: Glucose,Whole Blood 144 mg/dL (70-110)
[2022-12-13] MEDS: ATORVASTATIN 40 MG TAB PO SCH (20:26)
[2022-12-13] MEDS: INSULIN DETEMIR (LEVEMIR) 100 UNIT/ML SYR SQ SCH (20:29)
[2022-12-13] MEDS: risperiDONE 2 MG TAB PO SCH (21:24)
[2022-12-13] MEDS: traZODone HCL 50 MG TAB PO SCH (21:24)
--- NOTE | 2022-12-13 22:51 | EEG ---
ELECTROENCEPHALOGRAM REPORT CLINICAL HISTORY: This is a 62-year-old gentleman with altered mental status. The video EEG is obtained to evaluate for seizure and epileptiform activity. RELEVANT MEDICATION: Lamictal. EEG TYPE: A routine 21 channel EEG is performed with video using the 10/20 electrode placement system. DESCRIPTION: Wakefulness is only obtained. The posterior dominant rhythm consists of low to moderate voltage of 9 to 10 hertz activity. There is no physiological sleep architecture seen. There is diffuse significant amount of sweat artifact throughout the study. There is no focal slowing. Interictal and ictal are none. ACTIVATION PROCEDURE: The photic stimulation was obscured because of artifact. But with limited stimulation, photic stimulation did not evoke a posterior driving response. There is no abnormality during the photic stimulation. Hyperventilation is not performed. CLINICAL INTERPRETATION: This is a normal routine EEG. There is no focal slowing, epileptiform discharge or seizure on the EEG. Normal routine EEG does not rule out underlying epilepsy. Clinical correlation is recommended. TRISTA / JOSHUA: [id number] / ALBINO
[2022-12-14] MEDS: PIPERACILLIN-TAZOBACTAM 3.375 GM in SODIUM CHLORIDE 0.9% 100 ML IVPB SCH ×4 (00:24→23:43)
--- NOTE | 2022-12-14 02:12 | PN ---
PROGRESS NOTE SUBJECTIVE: He is more alert today, giving appropriate answers. Alert and oriented x3. Sugars have been dropping low, struggles , long-acting insulin from 60 down to 30. We are going to do scale only, no extra units for his sugar. He is eating full diet. He and his were fighting extensively in the room over stealing each other's money, etc. The patient is slowly improving from medical standpoint. He is sitting up. OBJECTIVE: VITAL SIGNS: Appear to be stable. CARDIOVASCULAR: S1, S2. LUNGS: Clear. PSYCH: Alert and oriented x3. HEMATOLOGY: Negative for Homans. ASSESSMENT: Status post lumbar laminectomy, hypoglycemia, insulin-dependent diabetes mellitus, acute delirium secondary to anesthesia, probably has bipolar history, sleep apnea history, hypertension, type 2 diabetes. Prognosis is extremely guarded. Wean psych medications that are not needed, anxiety medicines that are not needed. Pain med given minimal at this hospital. Prognosis guarded. ICU time 30 minutes. MMODL / IJN: [id number] /
[2022-12-14] MEDS: oxyCODONE-APAP 10-325MG 1 EACH TAB PO PRN ×4 (02:17→22:00)
[2022-12-14] MEDS: CYCLOBENZAPRINE 10 MG TAB PO PRN (02:17)
[2022-12-14 05:14] LABS: Basophils % (A) 0 %; Eosinophils # (A) 0.4 k/uL (0-0.7); Eosinophils % (A) 3 %; HCT 29.5 % (39.0-53.0); HGB 9.6 gm/dL (13.0-17.5); Hypochromasia Slight; Lymphocytes # (A) 2.3 k/uL (1.0-4.8); Lymphocytes % (A) 21 %; MCH 30.3 pg (25.0-35.0); MCHC 32.5 g/dL (31.0-37.0); MCV 93.3 fL (80.0-100.0); Mean Platelet Volume 8.5; Monocytes # (A) 0.6 k/uL (0-1.0); Monocytes % (A) 5 %; Neutrophils # (A) 7.6 k/uL (1.3-7.7); Neutrophils % (A) 69 %; Platelet Count 305 k/uL (150-450); RBC 3.17 m/uL (4.30-5.90); RDW 14.5 % (11.5-15.5)
[2022-12-14 05:25] LABS: African American GFR (CKD) >90 (>60 ml/min/1.73 sqM); Anion Gap 8 mmol/L; Blood Urea Nitrogen 15 mg/dL (9-20); Calcium 7.9 mg/dL (8.4-10.2); Carbon Dioxide 24 mmol/L (22-30); Chloride 101 mmol/L (98-107); Glucose 140 mg/dL (74-99); Non-African American GFR(CKD) >90 (>60 ml/min/1.73 sqM); Potassium 3.3 mmol/L (3.5-5.1); Sodium 133 mmol/L (137-145)
[2022-12-14 05:47] LABS: Glucose,Whole Blood 129 mg/dL (70-110)
[2022-12-14] MEDS: ACETAMINOPHEN TAB 325 MG TAB PO SCH ×4 (05:55→23:42)
[2022-12-14] MEDS: POTASSIUM CHLORIDE ER 20 MEQ TAB.ER PO SCH ×2 (05:55→06:40)
[2022-12-14] MEDS: PANTOPRAZOLE 40 MG TABLET PO SCH ×2 (06:41→17:45)
[2022-12-14] MEDS: HEPARIN SOD,PORK IN 0.45% NACL 25,000 UNIT in 0.45% NACL 1 250ML.BAG IV SCH ×3 (06:59→21:42)
[2022-12-14] MEDS: LACTATED RINGERS 1,000 ML IV SCH (07:05)
[2022-12-14] MEDS: INSULIN ASPART (NovoLOG) 100 UNIT/ML VIAL SQ SCH ×4 (07:08→21:34)
[2022-12-14] MEDS: BUDESONIDE 0.5 MG/2 ML NEBU INHALATION SCH ×2 (07:58→21:04)
[2022-12-14] MEDS: IPRATROPIUM-ALBUTEROL 3 ML NEB INHALATION SCH ×4 (07:58→21:04)
[2022-12-14] MEDS: SERTRALINE 100 MG TAB PO SCH ×2 (08:19→21:36)
[2022-12-14] MEDS: ASPIRIN 81 MG PO SCH (08:19)
[2022-12-14] MEDS: MULTIVITAMINS, THERA 1 EACH TAB PO SCH (08:20)
[2022-12-14] MEDS: LOSARTAN 50 MG TAB PO SCH (08:20)
[2022-12-14] MEDS: CHOLECALCIFEROL 25 MCG (1000 IU) TABLET PO SCH (08:20)
[2022-12-14] MEDS: FUROSEMIDE 20 MG TAB PO SCH (08:20)
[2022-12-14] MEDS: ASCORBIC ACID 500 MG TAB PO SCH (08:20)
[2022-12-14] MEDS: hydroCHLOROthiazide 12.5 MG CAP PO SCH (08:21)
[2022-12-14] MEDS: cloNIDine HCL 0.1 MG TAB PO SCH ×3 (08:21→21:34)
[2022-12-14] MEDS: LORATADINE 10 MG TAB PO SCH (08:30)
[2022-12-14] MEDS: PROPRANOLOL 20 MG TAB PO SCH ×2 (08:31→21:37)
[2022-12-14] MEDS: POTASSIUM CHLORIDE ER 10 MEQ TAB.ER.PRT PO SCH (08:33)
--- NOTE | 2022-12-14 08:55 | P.PN ---
Subjective Progress Note Date: 12/14/22 Principal diagnosis: 1. L4-5 L5-S1 Grade I unstable spondylolisthesis 2.Low back pain 3. LE paresthesia 4. LE weakness Patient seen and examined this morning. Patient has been assisted to chair at bedside. Tolerated activity well. Patient reports that his pain is managed, although he knows he is confused at times. Informed patient and spouse that we will be decreasing some of his medications. Patient verbalizes understanding. Patient does report improvement in his sensation to bilateral lower extremities since procedure. Surgical dressing to the lumbar spine has been changed this morning. Scant drainage noted. Edges of incision are well approximated and kam are intact. Bautista catheter present, this may be discontinued. Encoura ged patient to be up with all meals. Encourage patient to work with PT today. Objective - Vital Signs Vital signs: Vital Signs Temp 98 F 12/14/22 04:00 Pulse 76 12/14/22 07:00 Resp 13 12/14/22 07:00 BP 158/73 12/14/22 07:00 Pulse Ox 95 12/14/22 07:00 FiO2 35 12/13/22 04:04 Intake & Output 12/13/22 12/14/22 12/14/22 18:59 06:59 18:59 Intake Total 590.000 226.227 Output Total 400 375 30 Balance 190.000 -148.773 -30 Weight 117.5 kg 115.2 kg Intake: IV 140 .9 KVO 140 Intake, IV Titration 450.000 226.227 Amount Heparin Sod,Pork in 0.45% 250.000 226.227 NaCl 25,000 unit In 0.45 % NaCl 1 250ml.bag @ 18 UNITS/KG/HR 21.15 mls/hr IV .[id number] [facility] Rx#: [id number] Piperacillin-Tazobactam 3 200 .375 gm In Sodium Chloride 0.9% 100 ml @ 25 mls/hr IVPB Q8HR [facility] Rx# :[id number] Output: Urine 400 375 30 Other: Voiding Method Indwelling Catheter Indwelling Catheter - Exam Physical Examination General: The patient is awake and alert, in no acute distress, continues to have increased confusion from baseline Skin: Skin is warm and dry with no obvious rashes or lesions. Surgical incision to the lumbar spine, edges are well approximated with kam intact. Scant sanguinous drainage noted. Surgical dressing is clean dry and intact. Eye: Pupils are equal, round and reactive to light, extra-ocular movements are intact; there is normal conjunctiva bilaterally. Neck: The neck is supple, there is no tenderness and ROM intact. Cardiovascular: There is a regular rate and rhythm. No murmur, rub or gallop is appreciated. Respiratory: Lungs are clear to auscultation, respirations are non-labored, breath sounds are equal. Gastrointestinal: Soft, non-distended, non-tender abdomen. Back: There is mild tenderness to palpation in the paralumbar region. There is no obvious deformity . Musculoskeletal: ROM limited secondary to pain and stiffness from surgical pr ocedure. Muscle strength in all major muscle groups of bilateral upper extremities 5/5, bilateral lower extremities 4/5. Neurological: CN 2-12 intact. There are no obvious motor or sensory deficits. Movement and coordination equal and intact. Sensory exam to light touch intact C5-T1 and intact from L2-S1. Reflexes 2/4 in bilateral upper and lower extremities. Negative Hoffmans, babinski, and clonus signs. Psychiatric: Cooperative, appropriate mood & affect, normal judgment. - Labs CBC & Chem 7: 12/14/22 04:35 12/14/22 04:35 Labs: Abnormal Lab Results - Last 24 Hours (Table) 12/13/22 12/13/22 12/13/22 Range/Units 01:54 10:25 11:24 WBC (3.8-10.6) k/uL RBC (4.30-5.90) m/uL Hgb (13.0-17.5) gm/dL Hct (39.0-53.0) % APTT 82.1 H (22.0-30.0) sec Sodium (137-145) mmol/L Potassium (3.5-5.1) mmol/L Creatinine (0.66-1.25) mg/dL Glucose (74-99) mg/dL POC Glucose (mg/dL) 52 L (70-110) mg/dL Calcium (8.4-10.2) mg/dL Procalcitonin 1.08 H (0.02-0.09) ng/mL Ur Specific [place] (1.001-1.035) Urine Protein (Negative) Urine Ketones (Negative) Urine Blood (Negative) Ur Leukocyte Esterase (Negative) Urine RBC (0-5) /hpf Urine WBC (0-5) /hpf 12/13/22 12/13/22 12/13/22 Range/Units 11:40 17:10 19:15 WBC (3.8-10.6) k/uL RBC (4.30-5.90) m/uL Hgb (13.0-17.5) gm/dL Hct (39.0-53.0) % APTT 56.3 H (22.0-30.0) sec Sodium (137-145) mmol/L Potassium (3.5-5.1) mmol/L Creatinine (0.66-1.25) mg/dL Glucose (74-99) mg/dL POC Glucose (mg/dL) 69 L (70-110) mg/dL Calcium (8.4-10.2) mg/dL Procalcitonin (0.02-0.09) ng/mL Ur Specific [place] 1.045 H (1.001-1.035) Urine Protein 1+ H (Negative) Urine Ketones 1+ H (Negative) Urine Blood Moderate H (Negative) Ur Leukocyte Esterase Moderate H (Negative) Urine RBC >182 H (0-5) /hpf Urine WBC 13 H (0-5) /hpf 12/13/22 12/14/22 12/14/22 Range/Units 19:50 04:35 04:35 WBC 11.0 H (3.8-10.6) k/uL RBC 3.17 L (4.30-5.90) m/uL Hgb 9.6 L (13.0-17.5) gm/dL Hct 29.5 L (39.0-53.0) % APTT (22.0-30.0) sec Sodium 133 L (137-145) mmol/L Potassium 3.3 L (3.5-5.1) mmol/L Creatinine 0.61 L (0.66-1.25) mg/dL Glucose 140 H (74-99) mg/dL POC Glucose (mg/dL) 144 H (70-110) mg/dL Calcium 7.9 L (8.4-10.2) mg/dL Procalcitonin (0.02-0.09) ng/mL Ur Specific [place] (1.001-1.035) Urine Protein (Negative) Urine Ketones (Negative) Urine Blood (Negative) Ur Leukocyte Esterase (Negative) Urine RBC (0-5) /hpf Urine WBC (0-5) /hpf 12/14/22 12/14/22 Range/Units 04:35 05:45 WBC (3.8-10.6) k/uL RBC (4.30-5.90) m/uL Hgb (13.0-17.5) gm/dL Hct (39.0-53.0) % APTT 56.2 H (22.0-30.0) sec Sodium (137-145) mmol/L Potassium (3.5-5.1) mmol/L Creatinine (0.66-1.25) mg/dL Glucose (74-99) mg/dL POC Glucose (mg/dL) 129 H (70-110) mg/dL Calcium (8.4-10.2) mg/dL Procalcitonin (0.02-0.09) ng/mL Ur Specific [place] (1.001-1.035) Urine Protein (Negative) Urine Ketones (Negative) Urine Blood (Negative) Ur Leukocyte Esterase (Negative) Urine RBC (0-5) /hpf Urine WBC (0-5) /hpf Assessment and Plan Assessment: Postop day 4: L4-S1 decompression and fusion 1. L4-5 L5-S1 Grade I unstable spondylolisthesis 2.Low back pain 3. LE paresthesia 4. LE weakness Plan: -Appreciate learning consultant and team management. -Activity: Ambulate QID, OOB all meals, up and about, limit lifting bending twisting to less than 5 lbs. Use walker or cane if needed for stability. -Daily PT/OT, increase ambulation strength and balance. -Brace when up and about, not needed in bed or chair -Pain control: Adequate at this time -Meds: reviewed -GI ppx: senna, Miralax -DC bautista catheter -DVT PPX: Heparin -Hygiene: Shower today. Maintain dressing clean and dry. Meticulous cleaning after BMs away from the incision site -Encourage IS 10x/hr -Dispo: Anticipate discharge home with homecare vs [facility] when medically stable, patient is cleared from orthopedic standpoint for discharge. *I reviewed and discussed this case with my attending Dr. Washington, whom has reviewed this chart and films and is in agreement with assessment and plan of care as outlined above. I have personally seen and examined the patient, performed the documentation and the assessment and plan as written. Number of minutes spent on the visit: 20m.
--- NOTE | 2022-12-14 11:23 | P.PN ---
Subjective Progress Note Date: 12/14/22 I am seeing this patient in new consultation today 12/13/2022 for acute hypoxemic and hypercapnic respiratory failure that developed last night, requiring BiPAP and transfer to the ICU. Patient is a 62-year-old white male with past medical history significant for chronic lower back pain, prior lumbar spine laminectomy, prior cervical spine fusion, diabetes mellitus type 2, hypertension, hyperlipidemia, benign prostate hyperplasia, and obstructive sleep apnea not maintained on CPAP. The patient was brought in on December 10 for an elective revision of his lumbar spondylolisthesis requiring a L4 through S1 fusion. He is currently postoperative day #3. Initially, the patient was extubated and admitted to the general medical floor. He did develop some delirium postoperatively. The patient has known previous reactions to anesthesia. According to the family, the patient has had worsening memory loss, confusion, agitation preoperatively for the last 6 months. This has been worked up on an outpatient basis. Last night the patient was reportedly observed coughing and choking, was cyanotic, and developed some acute respiratory distress. According to the family, the patient has history of aspiration pneumonia and difficulty swallowing since his previous cervical spine fusion in January,. A rapid response team was called. He required transfer to the intensive care unit on the BiPAP with current settings of 14/5 and FiO2 of 35%. He is achieving adequate tidal volumes. Most recent ABGs, show an improvement in his hypercapnia, with a PaO2 of 142, pCO2 of 39, pH of 7.43. This was done on FiO2 of 50%. He did require Precedex infusion for acute agitation, which is currently infusing at 0.3 mcg/kg/h. He is calm and tolerating the BiPAP. Most recent chest x-ray shows bibasilar patchy airspace opacities concerning for pneumonia. I did start the patient on Zosyn. Most recent CBC shows a WBC count of 18.2, hemoglobin 11.6, hematocrit 37.3, platelets 359. BMP shows a sodium 13 5, potassium 4.2, chloride 99, serum bicarb 26, BUN 9, creatinine 0.6, glucose 259. No IV maintenance fluids are currently infusing. NT proBNP level was mildly elevated at 1870. He was given a dose of Lasix 40 mg IV push once. Fluid balance is -1.8 L over last 24 hours. A product safety technical assistant is at the bedside. Patient will be monitored in the intensive care unit. The patient is seen today 12/14/2022 in follow-up in the intensive care unit. He is currently resting comfortably in bed. Awake and alert in no acute distress. He did not require BiPAP last night. Currently maintaining good O2 saturations in the upper 90s on room air. He's been afebrile. Hemodynamically stable. He remains on heparin drip per weight base protocol. Urine culture revealed no growth. White count 11.0. Hemoglobin 9.6. Platelets 305. Sodium 133. Potassium 3.3. Bicarb 24. BUN 15. Creatinine 0.6. Glucose 140. He is continued on DuoNeb inhalations and antibiotics in the form of Zosyn. Objective - Vital Signs Vital signs: Vital Signs Temp 98.4 F 12/14/22 08:00 Pulse 80 12/14/22 11:02 Resp 24 12/14/22 09:00 BP 97/77 12/14/22 09:00 Pulse Ox 98 12/14/22 08:00 FiO2 35 12/13/22 04:04 Intake & Output 12/13/22 12/14/22 12/14/22 18:59 06:59 18:59 Intake Total 590.000 226.227 350 Output Total 400 375 90 Balance 190.000 -148.773 260 Weight 117.5 kg 115.2 kg Intake: IV 140 .9 KVO 140 Intake, IV Titration 450.000 226.227 100 Amount Heparin Sod,Pork in 0.45% 250.000 226.227 NaCl 25,000 unit In 0.45 % NaCl 1 250ml.bag @ 18 UNITS/KG/HR 21.15 mls/hr IV .[id number] [facility] Rx#: [id number] Piperacillin-Tazobactam 3 200 100 .375 gm In Sodium Chloride 0.9% 100 ml @ 25 mls/hr IVPB Q8HR [facility] Rx# :[id number] Oral 250 Output: Urine 400 375 90 Other: Voiding Method Indwelling Catheter Indwelling Catheter Indwelling Catheter - Exam GENERAL EXAM: Awake, alert 62-year-old male, on room air, no acute distress HEAD: Normocephalic and atraumatic EYES: Normal reaction of pupils, equal size. NOSE: Clear with pink turbinates. THROAT: No erythema or exudates. NECK: No masses, no JVD. CHEST: No chest wall deformity. LUNGS: Equal air entry with few scattered rhonchi. CVS: S1 and S2 normal with no audible murmur, regular rhythm. No extra heart sounds ABDOMEN: Obese abdomen. No hepatosplenomegaly, active bowel sounds, no guarding or rigidity. SPINE: No scoliosis or deformity. Surgical dressing is clean, dry, intact. SKIN: No rashes CENTRAL NERVOUS SYSTEM: No focal deficits, tone is normal in all 4 extremities. He does not follow commands for full neuro evaluation. EXTREMITIES: There is no peripheral edema, clubbing, or cyanosis. Peripheral pulses are intact. - Labs CBC & Chem 7: 12/14/22 04:35 12/14/22 04:35 Labs: Abnormal Lab Results - Last 24 Hours (Table) 12/13/22 12/13/22 12/13/22 Range/Units 10:25 11:24 11:40 WBC (3.8-10.6) k/uL RBC (4.30-5.90) m/uL Hgb (13.0-17.5) gm/dL Hct (39.0-53.0) % APTT 82.1 H (22.0-30.0) sec Sodium (137-145) mmol/L Potassium (3.5-5.1) mmol/L Creatinine (0.66-1.25) mg/dL Glucose (74-99) mg/dL POC Glucose (mg/dL) 52 L 69 L (70-110) mg/dL Calcium (8.4-10.2) mg/dL Ur Specific [place] (1.001-1.035) Urine Protein (Negative) Urine Ketones (Negative) Urine Blood (Negative) Ur Leukocyte Esterase (Negative) Urine RBC (0-5) /hpf Urine WBC (0-5) /hpf 12/13/22 12/13/22 12/13/22 Range/Units 17:10 19:15 19:50 WBC (3.8-10.6) k/uL RBC (4.30-5.90) m/uL Hgb (13.0-17.5) gm/dL Hct (39.0-53.0) % APTT 56.3 H (22.0-30.0) sec Sodium (137-145) mmol/L Potassium (3.5-5.1) mmol/L Creatinine (0.66-1.25) mg/dL Glucose (74-99) mg/dL POC Glucose (mg/dL) 144 H (70-110) mg/dL Calcium (8.4-10.2) mg/dL Ur Specific [place] 1.045 H (1.001-1.035) Urine Protein 1+ H (Negative) Urine Ketones 1+ H (Negative) Urine Blood Moderate H (Negative) Ur Leukocyte Esterase Moderate H (Negative) Urine RBC >182 H (0-5) /hpf Urine WBC 13 H (0-5) /hpf 12/14/22 12/14/22 12/14/22 Range/Units 04:35 04:35 04:35 WBC 11.0 H (3.8-10.6) k/uL RBC 3.17 L (4.30-5.90) m/uL Hgb 9.6 L (13.0-17.5) gm/dL Hct 29.5 L (39.0-53.0) % APTT 56.2 H (22.0-30.0) sec Sodium 133 L (137-145) mmol/L Potassium 3.3 L (3.5-5.1) mmol/L Creatinine 0.61 L (0.66-1.25) mg/dL Glucose 140 H (74-99) mg/dL POC Glucose (mg/dL) (70-110) mg/dL Calcium 7.9 L (8.4-10.2) mg/dL Ur Specific [place] (1.001-1.035) Urine Protein (Negative) Urine Ketones (Negative) Urine Blood (Negative) Ur Leukocyte Esterase (Negative) Urine RBC (0-5) /hpf Urine WBC (0-5) /hpf 12/14/22 Range/Units 05:45 WBC (3.8-10.6) k/uL RBC (4.30-5.90) m/uL Hgb (13.0-17.5) gm/dL Hct (39.0-53.0) % APTT (22.0-30.0) sec Sodium (137-145) mmol/L Potassium (3.5-5.1) mmol/L Creatinine (0.66-1.25) mg/dL Glucose (74-99) mg/dL POC Glucose (mg/dL) 129 H (70-110) mg/dL Calcium (8.4-10.2) mg/dL Ur Specific [place] (1.001-1.035) Urine Protein (Negative) Urine Ketones (Negative) Urine Blood (Negative) Ur Leukocyte Esterase (Negative) Urine RBC (0-5) /hpf Urine WBC (0-5) /hpf Microbiology - Last 24 Hours (Table) 12/13/22 03:25 Urine Culture - Final Urine,Catheterized Assessment and Plan Assessment: Acute hypoxemic and hypercapnic respiratory failure possibly secondary to aspiration. Chest x-ray shows bibasilar infiltrates concerning for pneumonia. Initially on BiPAP with settings 14/5 and an FiO2 of 35%. NT proBNP was also mildly elevated at 1870. Patient was given a one-time additional dose of Lasix. CT angiogram revealed motion artifact but possible filling defects in the subsegmental pulmonary artery supplying the right middle lobe. Currently on heparin drip. On 12/14/2021 the patient has recovered and on room air. Acute delirium, possibly related to anesthesia. Initially on a Precedex infusion, improved and alert and oriented 3 Postoperative day #4 following a revision of the lumbar spine related to spondylolisthesis with a L4 to S1 fusion. History of cervical spine fusion, done January, Diabetes mellitus type 2, insulin-dependent Benign essential hypertension Hyperlipidemia Benign prostatic hyperplasia Obstructive sleep apnea, not maintained on CPAP Morbid obesity with a BMI of 40 Plan: The patient was seen and evaluated Patient is alert and oriented 3 Currently stable and on room air Continue bronchodilators, Zosyn Remains on a heparin drip Cleared for transfer to the regular medical floor Follow-up chest x-ray in a.m. We'll continue to follow I have personally seen and examined the patient, performed the documentation and the assessment and plan as written. Number of minutes spent on the visit: 10.
[2022-12-14 11:34] LABS: Glucose,Whole Blood 191 mg/dL (70-110)
--- NOTE | 2022-12-14 12:56 | P.PN ---
Subjective Progress Note Date: 12/14/22 The patient is seen at bedside and feels about the same. Denies of any focal weakness, numbness, visual disturbance. Denies of any headache. Denies of any difficulty getting his words out. Patient states at bedside and she states that the patient the had the imaging of the brain recently and a showed white matter changes and there are concerns about it. Patient has history of diabetes, hypertension obstructive sleep apnea and that was read up about white matter changes is concerned. Objective - Vital Signs Vital signs: Vital Signs Temp 98.4 F 12/14/22 08:00 Pulse 80 12/14/22 11:02 Resp 24 12/14/22 09:00 BP 97/77 12/14/22 09:00 Pulse Ox 98 12/14/22 08:00 FiO2 35 12/13/22 04:04 Intake & Output 12/13/22 12/14/22 12/14/22 18:59 06:59 18:59 Intake Total 590.000 226.227 350 Output Total 400 375 90 Balance 190.000 -148.773 260 Weight 117.5 kg 115.2 kg Intake: IV 140 .9 KVO 140 Intake, IV Titration 450.000 226.227 100 Amount Heparin Sod,Pork in 0.45% 250.000 226.227 NaCl 25,000 unit In 0.45 % NaCl 1 250ml.bag @ 18 UNITS/KG/HR 21.15 mls/hr IV .[id number] [facility] Rx#: [id number] Piperacillin-Tazobactam 3 200 100 .375 gm In Sodium Chloride 0.9% 100 ml @ 25 mls/hr IVPB Q8HR [facility] Rx# :[id number] Oral 250 Output: Urine 400 375 90 Other: Voiding Method Indwelling Catheter Indwelling Catheter Indwelling Catheter - Exam GENERAL: The patient is lying in bed and is not in acute distress. NEUROLOGICAL: Higher mental function: The patient is awake, alert, oriented to self, place and time. Patient is following simple commands. No aphasia and no neglect. Cranial nerves: The pupils are round, equal and reactive to light and accommodation. Visual rao are full to confrontation throughout. Extraocular movement is intact no nystagmus is noted. Facial sensation is normal to touch throughout. The facial strength is normal throughout. Hearing is normal bilaterally to hand rub. Tongue is midline and moved [id number] without any difficulty. No dysarthria is noted. Shoulder shrug is normal bilaterally. Motor: The strength is 5 over 5 throughout uppers. While lowers are limited because of pain but is lifting above gravity. Normal tone and bulk. Cerebellum: Normal finger to nose bilaterally. Sensation: Sensation is normal to touch throughout. Reflexes (right/left): 2+ thorughout uppers while lowers are not assessed because of pain Plantars are downgoing bilaterally. Some other workup during our facility consisted of: Ammonia 15 TSH is 1.1. Folate is more than 20 Vitamin B-12 is 470 HA1c is 9.9. Glucose has been in the range of 100 to 200s appear. Patient had 2 episodes whe re the sugar was in the 50s to 60s which were yesterday. CT of the head is reported as no acute hemorrhage, hydrocephalus or mass effect. Personally reviewed the CT of the head and agree with the report. Routine EEG is normal. There is no focal slowing, epileptiform discharges or seizure on the EEG 2D echo was reported as left ventricle atrophy with preserved systolic function. - Labs CBC & Chem 7: 12/14/22 04:35 12/14/22 04:35 Labs: Abnormal Lab Results - Last 24 Hours (Table) 12/13/22 12/13/22 12/13/22 Range/Units 17:10 19:15 19:50 WBC (3.8-10.6) k/uL RBC (4.30-5.90) m/uL Hgb (13.0-17.5) gm/dL Hct (39.0-53.0) % APTT 56.3 H (22.0-30.0) sec Sodium (137-145) mmol/L Potassium (3.5-5.1) mmol/L Creatinine (0.66-1.25) mg/dL Glucose (74-99) mg/dL POC Glucose (mg/dL) 144 H (70-110) mg/dL Calcium (8.4-10.2) mg/dL Ur Specific [place] 1.045 H (1.001-1.035) Urine Protein 1+ H (Negative) Urine Ketones 1+ H (Negative) Urine Blood Moderate H (Negative) Ur Leukocyte Esterase Moderate H (Negative) Urine RBC >182 H (0-5) /hpf Urine WBC 13 H (0-5) /hpf 12/14/22 12/14/22 12/14/22 Range/Units 04:35 04:35 04:35 WBC 11.0 H (3.8-10.6) k/uL RBC 3.17 L (4.30-5.90) m/uL Hgb 9.6 L (13.0-17.5) gm/dL Hct 29.5 L (39.0-53.0) % APTT 56.2 H (22.0-30.0) sec Sodium 133 L (137-145) mmol/L Potassium 3.3 L (3.5-5.1) mmol/L Creatinine 0.61 L (0.66-1.25) mg/dL Glucose 140 H (74-99) mg/dL POC Glucose (mg/dL) (70-110) mg/dL Calcium 7.9 L (8.4-10.2) mg/dL Ur Specific [place] (1.001-1.035) Urine Protein (Negative) Urine Ketones (Negative) Urine Blood (Negative) Ur Leukocyte Esterase (Negative) Urine RBC (0-5) /hpf Urine WBC (0-5) /hpf 12/14/22 12/14/22 Range/Units 05:45 11:32 WBC (3.8-10.6) k/uL RBC (4.30-5.90) m/uL Hgb (13.0-17.5) gm/dL Hct (39.0-53.0) % APTT (22.0-30.0) sec Sodium (137-145) mmol/L Potassium (3.5-5.1) mmol/L Creatinine (0.66-1.25) mg/dL Glucose (74-99) mg/dL POC Glucose (mg/dL) 129 H 191 H (70-110) mg/dL Calcium (8.4-10.2) mg/dL Ur Specific [place] (1.001-1.035) Urine Protein (Negative) Urine Ketones (Negative) Urine Blood (Negative) Ur Leukocyte Esterase (Negative) Urine RBC (0-5) /hpf Urine WBC (0-5) /hpf Microbiology - Last 24 Hours (Table) 12/13/22 03:25 Urine Culture - Final Urine,Catheterized Assessment and Plan Assessment: Delirium due to multifactorial: Hypoxic and hypercapnic respiratory failure, possible aspiration pneumonia, hypoglycemic event possibly related to anesthesia, hospital induced---mentation has improved . Routine EEG is normal Lumbar spondylolithesis with revision over L4 S1 fusion on 12/10/22 Acute hypoxic and hypercapnic respiratory failure with possible aspiration Obstructive sleep apnea not maintain on CPAP History of cervical fusion Diabetes mellitus recent hemoglobin A1c is 9.9 Morbid obesity Plan: CT of the head is negative. EEG is normal Seems the patient had recent imaging showed white matter changes and was concerned about it. Patient was notified that his white matter changes is likely due to his underlying risk factors of diabetes, hypertension, obstructive sleep apnea obesity. Patient was notified that he is to follow up with a neurologist as an outpatient to have and neuropsych evaluation to assess his mentation whether he has a truly underlying dementia or any pseudodementia. We'll defer the rest of admitted to the primary team and rest of specialist Plan is discussed with the patient and his who is at bedside. Otherwise no additional neurological workup is needed. We'll sign off. Please reconsult if needed. Time with Patient: Less than 30
[2022-12-14] MEDS ORDERED: POTASSIUM CHLORIDE ER 20 MEQ TAB.ER PO SCH (14:00)
[2022-12-14] MEDS ORDERED: Potassium Replacement Protocol 1 EACH MISC MISCELLANE PRN (14:00)
[2022-12-14 16:52] LABS: Glucose,Whole Blood 235 mg/dL (70-110)
[2022-12-14 20:15] LABS: Glucose,Whole Blood 249 mg/dL (70-110)
[2022-12-14] MEDS: lamoTRIgine 100 MG TAB PO SCH (21:35)
[2022-12-14] MEDS: risperiDONE 2 MG TAB PO SCH (21:36)
[2022-12-14] MEDS: traZODone HCL 50 MG TAB PO SCH (21:36)
[2022-12-14] MEDS: ATORVASTATIN 40 MG TAB PO SCH (21:41)
[2022-12-14] MEDS: INSULIN DETEMIR (LEVEMIR) 100 UNIT/ML SYR SQ SCH (22:15)
[2022-12-15] MEDS: ACETAMINOPHEN TAB 325 MG TAB PO SCH ×4 (06:03→22:37)
[2022-12-15] MEDS: oxyCODONE-APAP 10-325MG 1 EACH TAB PO PRN ×3 (06:03→22:37)
[2022-12-15 06:04] LABS: HCT 34.5 % (39.0-53.0); HGB 10.6 gm/dL (13.0-17.5); Hypochromasia Moderate; MCH 28.6 pg (25.0-35.0); MCHC 30.7 g/dL (31.0-37.0); MCV 93.3 fL (80.0-100.0); Mean Platelet Volume 9.2; Platelet Count 405 k/uL (150-450); RDW 14.8 % (11.5-15.5)
[2022-12-15 06:06] LABS: Glucose,Whole Blood 219 mg/dL (70-110)
[2022-12-15 06:28] LABS: African American GFR (CKD) >90 (>60 ml/min/1.73 sqM); Anion Gap 9 mmol/L; Blood Urea Nitrogen 13 mg/dL (9-20); Calcium 8.7 mg/dL (8.4-10.2); Carbon Dioxide 25 mmol/L (22-30); Chloride 101 mmol/L (98-107); Glucose 233 mg/dL (74-99); Non-African American GFR(CKD) >90 (>60 ml/min/1.73 sqM); Potassium 4.6 mmol/L (3.5-5.1); Sodium 135 mmol/L (137-145)
[2022-12-15] MEDS: PANTOPRAZOLE 40 MG TABLET PO SCH ×2 (06:37→17:17)
[2022-12-15] MEDS: INSULIN ASPART (NovoLOG) 100 UNIT/ML VIAL SQ SCH ×4 (06:39→21:29)
[2022-12-15] MEDS: LACTATED RINGERS 1,000 ML IV SCH (07:11)
--- NOTE | 2022-12-15 07:11 | XR ---
EXAMINATION TYPE: XR chest 1V portable DATE OF EXAM: 12/15/2022 4:18 AM COMPARISON: Chest radiographs from 12/12/2022 TECHNIQUE: XR chest 1V portable Portable AP radiograph of the chest. CLINICAL INDICATION:Male, 62 years old with history of Follow up aspiration; FINDINGS: Lungs/Pleura: Blunting of the right costophrenic angle. No pneumothorax. Improvement in bibasilar pat varun airspace opacities. Pulmonary vascularity: Unremarkable. Heart/mediastinum: Cardiomediastinal silhouette is stable. Musculoskeletal: No acute osseous pathology. Cervical fusion hardware. IMPRESSION: Small right pleural effusion with improvement of bibasilar patchy airspace opacities.
[2022-12-15] MEDS: BUDESONIDE 0.5 MG/2 ML NEBU INHALATION SCH ×2 (07:36→20:23)
[2022-12-15] MEDS: IPRATROPIUM-ALBUTEROL 3 ML NEB INHALATION SCH ×4 (07:36→20:23)
[2022-12-15] MEDS: cloNIDine HCL 0.1 MG TAB PO SCH ×3 (08:22→21:28)
[2022-12-15] MEDS: lamoTRIgine 100 MG TAB PO SCH ×2 (08:22→21:28)
[2022-12-15] MEDS: MULTIVITAMINS, THERA 1 EACH TAB PO SCH (08:22)
[2022-12-15] MEDS: PIPERACILLIN-TAZOBACTAM 3.375 GM in SODIUM CHLORIDE 0.9% 100 ML IVPB SCH ×3 (08:22→22:37)
[2022-12-15] MEDS: SERTRALINE 100 MG TAB PO SCH ×2 (08:23→21:27)
[2022-12-15] MEDS: hydroCHLOROthiazide 12.5 MG CAP PO SCH (08:23)
[2022-12-15] MEDS: LOSARTAN 50 MG TAB PO SCH (08:23)
[2022-12-15] MEDS: FUROSEMIDE 20 MG TAB PO SCH (08:23)
[2022-12-15] MEDS: LORATADINE 10 MG TAB PO SCH (08:23)
[2022-12-15] MEDS: ASCORBIC ACID 500 MG TAB PO SCH (08:23)
[2022-12-15] MEDS: CHOLECALCIFEROL 25 MCG (1000 IU) TABLET PO SCH (08:23)
[2022-12-15] MEDS: PROPRANOLOL 20 MG TAB PO SCH ×2 (08:24→21:28)
[2022-12-15] MEDS: ASPIRIN 81 MG PO SCH (08:24)
[2022-12-15] MEDS: APIXABAN 5 MG TAB PO SCH ×2 (09:22→21:28)
[2022-12-15] MEDS: POTASSIUM CHLORIDE ER 10 MEQ TAB.ER.PRT PO SCH (09:23)
--- NOTE | 2022-12-15 09:29 | P.PN ---
Subjective Progress Note Date: 12/15/22 Principal diagnosis: status post revision L4-S1 decompression and fusion Patient was examined today at bedside, he is currently in the ICU as overflow. Patient is doing phenomenal today at bedside, discussed with both nursing and the 8, he was able to get up on his own with minimal assistance and use the restroom. He feels that the back pain is improving along with the overall discomfort and weakness in the lower extremities. Currently denies headaches, lightheadedness, chest pain, shortness of breath, nausea or vomiting Objective - Vital Signs Vital signs: Vital Signs Temp 97.6 F 12/15/22 08:00 Pulse 80 12/15/22 08:00 Resp 18 12/15/22 08:00 BP 117/80 12/15/22 08:00 Pulse Ox 94 L 12/15/22 08:00 FiO2 35 12/13/22 04:04 Intake & Output 12/14/22 12/15/22 12/15/22 18:59 06:59 18:59 Intake Total 750 519.827 Output Total 1065 Balance -315 519.827 Weight 113.2 kg Intake: Intake, IV Titration 200 519.827 Amount Heparin Sod,Pork in 0.45% 419.827 NaCl 25,000 unit In 0.45 % NaCl 1 250ml.bag @ 18 UNITS/KG/HR 21.15 mls/hr IV .[id number] [facility] Rx#: [id number] Piperacillin-Tazobactam 3 200 100 .375 gm In Sodium Chloride 0.9% 100 ml @ 25 mls/hr IVPB Q8HR [facility] Rx# :[id number] Oral 550 Output: Urine 1065 Other: Voiding Method Indwelling Catheter # Voids 1 # Bowel Movements 1 - Exam Gen: AOx3, NAD VSS stable at this time Integument: Postop and is in good position and condition, no active drainage. Palpation: Mild tenderness with palpation to the paraspinal lumbar region ROM: Full range of motion in all major muscle groups of the bilateral upper and lower extremities, no focal deficits Sensory Exam: Senory exam to light touch is intact C5-T1 Senosry exam to light touch is intact L2-S1 Motor: 55 strength appreciated in the bilateral upper extremities with shoulder elevation, shoulder abduction, elbow extension, elbow flexion, wrist extension, wrist flexion, meteorologist in charge 4/5 strength appreciated in the bilateral lower extremities with hip flexion, knee extension, knee flexion, plantar flexion, dorsiflexion, EHL, FHL Reflexes: 2/4 in all UE and LE Negative Aaron's bilateral Negative Babinski bilateral Negative Clonus bilateral - Labs CBC & Chem 7: 12/15/22 05:22 12/15/22 05:22 Labs: Abnormal Lab Results - Last 24 Hours (Table) 12/14/22 12/14/22 12/14/22 Range/Units 11:32 16:51 20:13 WBC (3.8-10.6) k/uL RBC (4.30-5.90) m/uL Hgb (13.0-17.5) gm/dL Hct (39.0-53.0) % MCHC (31.0-37.0) g/dL APTT (22.0-30.0) sec Sodium (137-145) mmol/L Creatinine (0.66-1.25) mg/dL Glucose (74-99) mg/dL POC Glucose (mg/dL) 191 H 235 H 249 H (70-110) mg/dL 12/15/22 12/15/22 12/15/22 Range/Units 05:22 05:22 05:22 WBC 11.0 H (3.8-10.6) k/uL RBC 3.70 L (4.30-5.90) m/uL Hgb 10.6 L (13.0-17.5) gm/dL Hct 34.5 L (39.0-53.0) % MCHC 30.7 L (31.0-37.0) g/dL APTT 39.7 H (22.0-30.0) sec Sodium 135 L (137-145) mmol/L Creatinine 0.57 L (0.66-1.25) mg/dL Glucose 233 H (74-99) mg/dL POC Glucose (mg/dL) (70-110) mg/dL 12/15/22 Range/Units 06:05 WBC (3.8-10.6) k/uL RBC (4.30-5.90) m/uL Hgb (13.0-17.5) gm/dL Hct (39.0-53.0) % MCHC (31.0-37.0) g/dL APTT (22.0-30.0) sec Sodium (137-145) mmol/L Creatinine (0.66-1.25) mg/dL Glucose (74-99) mg/dL POC Glucose (mg/dL) 219 H (70-110) mg/dL Microbiology - Last 24 Hours (Table) 12/13/22 03:25 Urine Culture - Final Urine,Catheterized Assessment and Plan Assessment: Postoperative day #5 status post L4-S1 revision decompression and fusion Plan: Pain control, continue with current medications DVT prophylaxis, pulmonology and internal medicine recommendations based on pulmonary embolism Wound care, continue to monitor, plan for dressing change prior to discharge Encourage incentive spirometer PT/OT daily, weight-bear as tolerated with walker Other caregivers non medical recommendations Discharge planning: Patient continues to show improvement. Pending bed availability, patient should be transferred out of the ICU. Would like to keep the patient in hospital through the weekend with plan for discharge to home with home healthcare on 12/17/2022 Time with Patient: Less than 30
--- NOTE | 2022-12-15 10:40 | P.PN ---
Subjective Progress Note Date: 12/15/22 I am seeing this patient in new consultation today 12/13/2022 for acute hypoxemic and hypercapnic respiratory failure that developed last night, requiring BiPAP and transfer to the ICU. Patient is a 62-year-old white male with past medical history significant for chronic lower back pain, prior lumbar spine laminectomy, prior cervical spine fusion, diabetes mellitus type 2, hypertension, hyperlipidemia, benign prostate hyperplasia, and obstructive sleep apnea not maintained on CPAP. The patient was brought in on December 10 for an elective revision of his lumbar spondylolisthesis requiring a L4 through S1 fusion. He is currently postoperative day #3. Initially, the patient was extubated and admitted to the general medical floor. He did develop some delirium postoperatively. The patient has known previous reactions to anesthesia. According to the family, the patient has had worsening memory loss, confusion, agitation preoperatively for the last 6 months. This has been worked up on an outpatient basis. Last night the patient was reportedly observed coughing and choking, was cyanotic, and developed some acute respiratory distress. According to the family, the patient has history of aspiration pneumonia and difficulty swallowing since his previous cervical spine fusion in January,. A rapid response team was called. He required transfer to the intensive care unit on the BiPAP with current settings of 14/5 and FiO2 of 35%. He is achieving adequate tidal volumes. Most recent ABGs, show an improvement in his hypercapnia, with a PaO2 of 142, pCO2 of 39, pH of 7.43. This was done on FiO2 of 50%. He did require Precedex infusion for acute agitation, which is currently infusing at 0.3 mcg/kg/h. He is calm and tolerating the BiPAP. Most recent chest x-ray shows bibasilar patchy airspace opacities concerning for pneumonia. I did start the patient on Zosyn. Most recent CBC shows a WBC count of 18.2, hemoglobin 11.6, hematocrit 37.3, platelets 359. BMP shows a sodium 13 5, potassium 4.2, chloride 99, serum bicarb 26, BUN 9, creatinine 0.6, glucose 259. No IV maintenance fluids are currently infusing. NT proBNP level was mildly elevated at 1870. He was given a dose of Lasix 40 mg IV push once. Fluid balance is -1.8 L over last 24 hours. A environmental health and safety intern is at the bedside. Patient will be monitored in the intensive care unit. The patient is seen today 12/14/2022 in follow-up in the intensive care unit. He is currently resting comfortably in bed. Awake and alert in no acute distress. He did not require BiPAP last night. Currently maintaining good O2 saturations in the upper 90s on room air. He's been afebrile. Hemodynamically stable. He remains on heparin drip per weight base protocol. Urine culture revealed no growth. White count 11.0. Hemoglobin 9.6. Platelets 305. Sodium 133. Potassium 3.3. Bicarb 24. BUN 15. Creatinine 0.6. Glucose 140. He is continued on DuoNeb inhalations and antibiotics in the form of Zosyn. The patient is seen today 12/15/2022 in follow-up in the intensive care unit. He is awake and alert in no acute distress. Sitting up in a chair at the bedside. Maintaining good O2 saturations in the 90s on room air. Chest x-ray reveals a small right pleural effusion with improvement of bibasilar patchy airspace opacities. He continues to work well with the incentive spirometer. Urine culture revealed no growth. White count 11.0. Hemoglobin 10.6. Platelets 405. Sodium 135. Potassium 4.6. Bicarb 25. BUN 13. Creatinine 0.57. Glucose 233. He remains on a heparin drip. On Zosyn. His back pain is improving. He is much stronger today compared to yesterday. Up ambulating with assistance. Objective - Vital Signs Vital signs: Vital Signs Temp 97.6 F 12/15/22 08:00 Pulse 80 12/15/22 08:00 Resp 18 12/15/22 08:00 BP 117/80 12/15/22 08:00 Pulse Ox 94 L 12/15/22 08:00 FiO2 35 12/13/22 04:04 Intake & Output 12/14/22 12/15/22 12/15/22 18:59 06:59 18:59 Intake Total 750 519.827 Output Total 1065 Balance -315 519.827 Weight 113.2 kg Intake: Intake, IV Titration 200 519.827 Amount Heparin Sod,Pork in 0.45% 419.827 NaCl 25,000 unit In 0.45 % NaCl 1 250ml.bag @ 18 UNITS/KG/HR 21.15 mls/hr IV .[id number] [facility] Rx#: [id number] Piperacillin-Tazobactam 3 200 100 .375 gm In Sodium Chloride 0.9% 100 ml @ 25 mls/hr IVPB Q8HR [facility] Rx# :[id number] Oral 550 Output: Urine 1065 Other: Voiding Method Indwelling Catheter Toilet Urinal # Voids 1 # Bowel Movements 1 - Exam GENERAL EXAM: Awake, alert very pleasant 62-year-old male, on room air, no acute distress HEAD: Normocephalic and atraumatic EYES: Normal reaction of pupils, equal size. NOSE: Clear with pink turbinates. THROAT: No erythema or exudates. NECK: No masses, no JVD. CHEST: No chest wall deformity. LUNGS: Equal air entry clear with few scattered rhonchi. CVS: S1 and S2 normal with no audible murmur, regular rhythm. No extra heart sounds ABDOMEN: Obese abdomen. No hepatosplenomegaly, active bowel sounds, no guarding or rigidity. SPINE: No scoliosis or deformity. Surgical dressing is clean, dry, intact. SKIN: No rashes CENTRAL NERVOUS SYSTEM: No focal deficits, tone is normal in all 4 extremities. EXTREMITIES: There is no peripheral edema, clubbing, or cyanosis. Peripheral pulses are intact. - Labs CBC & Chem 7: 12/15/22 05:22 12/15/22 05:22 Labs: Abnormal Lab Results - Last 24 Hours (Table) 12/14/22 12/14/22 12/14/22 Range/Units 11:32 16:51 20:13 WBC (3.8-10.6) k/uL RBC (4.30-5.90) m/uL Hgb (13.0-17.5) gm/dL Hct (39.0-53.0) % MCHC (31.0-37.0) g/dL APTT (22.0-30.0) sec Sodium (137-145) mmol/L Creatinine (0.66-1.25) mg/dL Glucose (74-99) mg/dL POC Glucose (mg/dL) 191 H 235 H 249 H (70-110) mg/dL 12/15/22 12/15/22 12/15/22 Range/Units 05:22 05:22 05:22 WBC 11.0 H (3.8-10.6) k/uL RBC 3.70 L (4.30-5.90) m/uL Hgb 10.6 L (13.0-17.5) gm/dL Hct 34.5 L (39.0-53.0) % MCHC 30.7 L (31.0-37.0) g/dL APTT 39.7 H (22.0-30.0) sec Sodium 135 L (137-145) mmol/L Creatinine 0.57 L (0.66-1.25) mg/dL Glucose 233 H (74-99) mg/dL POC Glucose (mg/dL) (70-110) mg/dL 12/15/22 Range/Units 06:05 WBC (3.8-10.6) k/uL RBC (4.30-5.90) m/uL Hgb (13.0-17.5) gm/dL Hct (39.0-53.0) % MCHC (31.0-37.0) g/dL APTT (22.0-30.0) sec Sodium (137-145) mmol/L Creatinine (0.66-1.25) mg/dL Glucose (74-99) mg/dL POC Glucose (mg/dL) 219 H (70-110) mg/dL Microbiology - Last 24 Hours (Table) 12/13/22 03:25 Urine Culture - Final Urine,Catheterized Assessment and Plan Assessment: Acute hypoxemic and hypercapnic respiratory failure possibly secondary to aspiration. Chest x-ray shows bibasilar infiltrates concerning for pneumonia. Initially on BiPAP with settings 14/5 and an FiO2 of 35%. NT proBNP was also mildly elevated at 1870. Patient was given a one-time additional dose of Lasix. CT angiogram revealed motion artifact but possible filling defects in the subsegmental pulmonary artery supplying the right middle lobe. Currently on heparin drip. On 12/14/2021 the patient has recovered and on room air. Acute delirium, possibly related to anesthesia. Initially on a Precedex infusion, improved and alert and oriented 3 Postoperative day #5 following a revision of the lumbar spine related to spondylolisthesis with a L4 to S1 fusion. History of cervical spine fusion, done January, Diabetes mellitus type 2, insulin-dependent Benign essential hypertension Hyperlipidemia Benign prostatic hyperplasia Obstructive sleep apnea, not maintained on CPAP Morbid obesity with a BMI of 40 Plan: The patient was seen and evaluated Chest x-ray, labs and medications reviewed Patient is alert and oriented 3 Currently stable and on room air Continue bronchodilators, Zosyn Discontinue heparin drip, initiate Eliquis Cleared for transfer to the regular medical floor We'll continue to follow I have personally seen and examined the patient, performed the documentation and the assessment and plan as written. Number of minutes spent on the visit: 10.
[2022-12-15 11:56] LABS: Glucose,Whole Blood 195 mg/dL (70-110)
--- NOTE | 2022-12-15 12:45 | PN ---
PROGRESS NOTE DATE OF SERVICE: 12/14/2022 SUBJECTIVE: The patient remains on DuoNeb and Pulmicort nebulizers. Mentally, he is much better. Sugars are better. He cut his insulin down to 30 from 60 on Levemir and Accu-Chek protocol, cut out all his regular insulin except per the protocol. His sugars are much better. He is in the ICU, waiting for stepdown bed. His white count is 11, hemoglobin is 10.6. Sodium 135, creatinine . Sugars mid 200s. OBJECTIVE: CARDIOVASCULAR: S1, S2. LUNGS: Clear. GI: Soft. ASSESSMENT AND PLAN: He is up into the chair. He can either go home or go to the rehab center in the next couple of days depending on his ambulation. He is up with help from his to the bathroom. His mental status is mostly better. He just forgets things occasionally. He forgets to wear his oxygen and do his breathing treatments, etc. EEG negative for any neurologic findings. Lots of his medications have been stopped for psych, pain control, etc. He is doing much better. He remains on his Lamictal which is helping him long-term. Pain control has been cut down to every 6 hours. He remains on broad- spectrum antibiotics for possible aspiration pneumonia per Dr. Fields's recommendations. Prognosis is guarded. Continue current treatment. Followup in the next 24 to 48 hours. MMODL / IJN: [id number] /
[2022-12-15 16:35] LABS: Glucose,Whole Blood 360 mg/dL (70-110)
[2022-12-15 21:01] LABS: Glucose,Whole Blood 186 mg/dL (70-110)
[2022-12-15] MEDS: ATORVASTATIN 40 MG TAB PO SCH (21:28)
[2022-12-15] MEDS: traZODone HCL 50 MG TAB PO SCH (21:28)
[2022-12-15] MEDS: risperiDONE 2 MG TAB PO SCH (21:28)
[2022-12-15] MEDS: INSULIN DETEMIR (LEVEMIR) 100 UNIT/ML SYR SQ SCH (21:29)
[2022-12-16 06:27] LABS: Glucose,Whole Blood 298 mg/dL (70-110)
[2022-12-16] MEDS: LACTATED RINGERS 1,000 ML IV SCH (06:31)
[2022-12-16] MEDS: INSULIN ASPART (NovoLOG) 100 UNIT/ML VIAL SQ SCH ×4 (06:32→20:30)
[2022-12-16] MEDS: PANTOPRAZOLE 40 MG TABLET PO SCH ×2 (06:32→17:45)
[2022-12-16] MEDS: ACETAMINOPHEN TAB 325 MG TAB PO SCH ×3 (06:32→17:45)
[2022-12-16] MEDS: oxyCODONE-APAP 10-325MG 1 EACH TAB PO PRN ×3 (06:33→19:42)
[2022-12-16] MEDS: PIPERACILLIN-TAZOBACTAM 3.375 GM in SODIUM CHLORIDE 0.9% 100 ML IVPB SCH ×2 (08:01→15:54)
[2022-12-16] MEDS: FUROSEMIDE 20 MG TAB PO SCH (08:02)
[2022-12-16] MEDS: ASPIRIN 81 MG PO SCH (08:02)
[2022-12-16] MEDS: hydroCHLOROthiazide 12.5 MG CAP PO SCH (08:02)
[2022-12-16] MEDS: ASCORBIC ACID 500 MG TAB PO SCH (08:02)
[2022-12-16] MEDS: cloNIDine HCL 0.1 MG TAB PO SCH ×3 (08:02→19:42)
[2022-12-16] MEDS: APIXABAN 5 MG TAB PO SCH ×2 (08:02→19:42)
[2022-12-16] MEDS: CHOLECALCIFEROL 25 MCG (1000 IU) TABLET PO SCH (08:02)
[2022-12-16] MEDS: IPRATROPIUM-ALBUTEROL 3 ML NEB INHALATION SCH ×4 (09:20→20:46)
[2022-12-16] MEDS: BUDESONIDE 0.5 MG/2 ML NEBU INHALATION SCH ×2 (09:20→20:46)
[2022-12-16 09:35] LABS: Basophils # (A) 0.07 X 10*3/uL (0.00-0.10); Basophils % (A) 0.7 %; Eosinophils # (A) 0.43 X 10*3/uL (0.04-0.35); Eosinophils % (A) 4.1 %; HCT 33.8 % (39.6-50.0); HGB 10.1 d/dL (12.0-15.0); Lymphocytes # (A) 2.44 X 10*3/uL (0.90-5.00); Lymphocytes % (A) 23.2 %; MCH 28.5 pg (27.0-32.0); MCHC 29.9 d/dL (32.0-37.0); MCV 95.2 FL (80.0-97.0); Mean Platelet Volume 10.6 FL (9.5-12.2); Monocytes # (A) 0.91 X 10*3/uL (0.20-1.00); Monocytes % (A) 8.7 %; NRBC Per 100 WBC 0 X 10*3/uL (0.00-0.01); Neutrophils # (A) 6.41 X 10*3/uL (1.80-7.70); Platelet Count 422 X 10*3/uL (140-440); RBC 3.55 X 10*6/uL (4.40-5.60); RDW 14.5 % (11.5-14.5)
[2022-12-16] MEDS: POTASSIUM CHLORIDE ER 10 MEQ TAB.ER.PRT PO SCH (10:34)
[2022-12-16] MEDS: MULTIVITAMINS, THERA 1 EACH TAB PO SCH (10:34)
[2022-12-16] MEDS: LORATADINE 10 MG TAB PO SCH (10:34)
[2022-12-16] MEDS: SERTRALINE 100 MG TAB PO SCH ×2 (10:34→19:42)
[2022-12-16] MEDS: lamoTRIgine 100 MG TAB PO SCH ×2 (10:35→19:42)
[2022-12-16] MEDS: PROPRANOLOL 20 MG TAB PO SCH ×2 (10:35→19:41)
[2022-12-16 10:42] LABS: ALT 17 U/L (10-49); AST 16 U/L (14-35); Albumin 3.5 d/dL (3.8-4.9); Albumin/Globulin Ratio 1.59 Ratio (1.60-3.17); Alkaline Phosphatase 160 U/L (41-126); BUN/Creat Ratio 14.29 Ratio (12.00-20.00); Calcium 9.5 mg/dL (8.7-10.3); Carbon Dioxide 28.3 mmol/L (21.6-31.8); Chloride 102 mmol/L (96-109); Globulin 2.2 d/dL (1.6-3.3); Glucose 274 mg/dL (70-110); Potassium 4.6 mmol/L (3.5-5.5); Sodium 140 mmol/L (135-145); Total Bilirubin 0.2 mg/dL (0.3-1.2); Total Protein 5.7 d/dL (6.2-8.2)
[2022-12-16] MEDS: LOSARTAN 50 MG TAB PO SCH (10:48)
[2022-12-16 11:26] LABS: Glucose,Whole Blood 305 mg/dL (70-110)
--- NOTE | 2022-12-16 12:08 | P.PN ---
Subjective Progress Note Date: 12/16/22 Principal diagnosis: Pulmonary embolism. I am seeing this patient in new consultation today 12/13/2022 for acute hypoxemic and hypercapnic respiratory failure that developed last night, requiring BiPAP and transfer to the ICU. Patient is a 62-year-old white male with past medical history significant for chronic lower back pain, prior lumbar spine laminectomy, prior cervical spine fusion, diabetes mellitus type 2, hypertension, hyperlipidemia, benign prostate hyperplasia, and obstructive sleep apnea not maintained on CPAP. The patient was brought in on December 10 for an vladimir ctive revision of his lumbar spondylolisthesis requiring a L4 through S1 fusion. He is currently postoperative day #3. Initially, the patient was extubated and admitted to the general medical floor. He did develop some delirium postoperatively. The patient has known previous reactions to anesthesia. According to the family, the patient has had worsening memory loss, confusion, agitation preoperatively for the last 6 months. This has been worked up on an outpatient basis. Last night the patient was reportedly observed coughing and choking, was cyanotic, and developed some acute respiratory distress. According to the family, the patient has history of aspiration pneumonia and difficulty swallowing since his previous cervical spine fusion in January,. A rapid response team was called. He required transfer to the intensive care unit on the BiPAP with current settings of 14/5 and FiO2 of 35%. He is achieving adequate tidal volumes. Most recent ABGs, show an improvement in his hypercapnia, with a PaO2 of 142, pCO2 of 39, pH of 7.43. This was done on FiO2 of 50%. He did requ chase Precedex infusion for acute agitation, which is currently infusing at 0.3 mcg/kg/h. He is calm and tolerating the BiPAP. Most recent chest x-ray shows bibasilar patchy airspace opacities concerning for pneumonia. I did start the patient on Zosyn. Most recent CBC shows a WBC count of 18.2, hemoglobin 11.6, hematocrit 37.3, platelets 359. BMP shows a sodium 135, potassium 4.2, chloride 99, serum bicarb 26, BUN 9, creatinine 0.6, glucose 259. No IV maintenance fluids are currently infusing. NT proBNP level was mildly elevated at 1870. He was given a dose of Lasix 40 mg IV push once. Fluid balance is -1.8 L over last 24 hours. A safety investigator is at the bedside. Patient will be monitored in the intensive care unit. The patient is seen today 12/14/2022 in follow-up in the intensive care unit. He is currently resting comfortably in bed. Awake and alert in no acute distress. He did not require BiPAP last night. Currently maintaining good O2 saturations in the upper 90s on room air. He's been afebrile. Hemodynamically stable. He remains on heparin drip per weight base protocol. Urine culture revealed no growth. White count 11.0. Hemoglobin 9.6. Platelets 305. Sodium 133. Potassium 3.3. Bicarb 24. BUN 15. Creatinine 0.6. Glucose 140. He is continued on DuoNeb inhalations and antibiotics in the form of Zosyn. The patient is seen today 12/15/2022 in follow-up in the intensive care unit. He is awake and alert in no acute distress. Sitting up in a chair at the bedside. Maintaining good O2 saturations in the 90s on room air. Chest x-ray reveals a small right pleural effusion with improvement of bibasilar patchy airspace opacities. He continues to work well with the incentive spirometer. Urine culture revealed no growth. White count 11.0. Hemoglobin 10.6. Platelets 405. Sodium 135. Potassium 4.6. Bicarb 25. BUN 13. Creatinine 0.57. Glucose 233. He remains on a heparin drip. On Zosyn. His back pain is improving. He is much stronger today compared to yesterday. Up ambulating with assistance. Progress note dated 12/16/2022. The patient is seen today in room 461. The patient's on room air. He's not receiving any IV fluids. The patient has received a factor X a inhibitor for his pulmonary embolism. Chest x-ray is improved. Labs today include a white count 10.5, hemoglobin 10.1, hematocrit 33.8, and a platelet count that is 422,000. Sodium 140, potassium 4.6, chlorides 102, CO2 28, BUN 10, and creatinine 0.7. Objective - Vital Signs Vital signs: Vital Signs Temp 97.6 F 12/16/22 07:50 Pulse 77 12/16/22 07:50 Resp 17 12/16/22 07:50 BP 159/77 07/09/23 07:50 Pulse Ox 98 12/16/22 09:16 FiO2 35 12/13/22 04:04 Intake & Output 12/15/22 12/16/22 12/16/22 18:59 06:59 18:59 Other: Voiding Method Toilet Urinal # Voids 2 2 - Exam No acute distress, oriented 3. HEENT examination is grossly unremarkable. Neck supple. Full range of motion. No adenopathy thyromegaly or neck vein distention. Cardiovascular examination reveals regular rhythm rate. S1-S2 normal. No S3 or S4. No discernible murmur noted. Heart rate 77 bpm. Lungs reveal clear breath sounds. Breath sounds are equal bilaterally. No adventitious lung sounds including wheezes rhonchi or crackles. Room air saturation is 98%. Abdomen soft bowel sounds are heard. No masses or tenderness. Extremities are intact. No cyanosis clubbing or edema. Skin is without rash or lesion. Neurologic examination is brief but nonfocal. - Labs CBC & Chem 7: 12/16/22 04:18 12/16/22 04:18 Labs: Abnormal Lab Results - Last 24 Hours (Table) 12/15/22 12/15/22 12/16/22 Range/Units 16:33 20:59 04:18 WBC 10.50 H (4.50-10.00) X 10*3/uL RBC 3.55 L (4.40-5.60) X 10*6/uL Hgb 10.1 L (12.0-15.0) d/dL Hct 33.8 L (39.6-50.0) % MCHC 29.9 L (32.0-37.0) d/dL Eosinophils # 0.43 H (0.04-0.35) X 10*3/uL Glucose (70-110) mg/dL POC Glucose (mg/dL) 360 H 186 H (70-110) mg/dL Total Bilirubin (0.3-1.2) mg/dL Alkaline Phosphatase (41-126) U/L Total Protein (6.2-8.2) d/dL Albumin (3.8-4.9) d/dL Albumin/Globulin Ratio (1.60-3.17) Ratio 12/16/22 12/16/22 12/16/22 Range/Units 04:18 06:25 11:25 WBC (4.50-10.00) X 10*3/uL RBC (4.40-5.60) X 10*6/uL Hgb (12.0-15.0) d/dL Hct (39.6-50.0) % MCHC (32.0-37.0) d/dL Eosinophils # (0.04-0.35) X 10*3/uL Glucose 274 H (70-110) mg/dL POC Glucose (mg/dL) 298 H 305 H (70-110) mg/dL Total Bilirubin 0.2 L (0.3-1.2) mg/dL Alkaline Phosphatase 160 H (41-126) U/L Total Protein 5.7 L (6.2-8.2) d/dL Albumin 3.5 L (3.8-4.9) d/dL Albumin/Globulin Ratio 1.59 L (1.60-3.17) Ratio Assessment and Plan Assessment: Acute hypoxemic and hypercapnic respiratory failure possibly secondary to aspiration. Chest x-ray shows bibasilar infiltrates concerning for pneumonia. Initially on BiPAP with settings 14/5 and an FiO2 of 35%. NT proBNP was also mildly elevated at 1870. Patient was given a one-time additional dose of Lasix. CT angiogram revealed motion artifact but possible filling defects in the subsegmental pulmonary artery supplying the right middle lobe. Currently on Eliquis. Acute delirium, possibly related to anesthesia. Initially on a Precedex infusion, improved and alert and oriented 3. Postoperative day #6 following a revision of the lumbar spine related to spondylolisthesis with a L4 to S1 fusion. History of cervical spine fusion, done January,. Diabetes mellitus type 2, insulin-dependent. Benign essential hypertension. Hyperlipidemia. Benign prostatic hyperplasia. Obstructive sleep apnea, not maintained on CPAP. Morbid obesity with a BMI of 40. Plan: Plan dated 12/16/2022. The patient's doing well. He was transferred out of the intensive care unit yesterday. He is on room air. He's had receiving any IV fluids. He continues on Zosyn for suspected aspiration pneumonia. In addition, the patient is on a factor X a inhibitor, for suspected pulmonary embolism. Additional recommendations and suggestions are forthcoming. His mental status seems to be improved. We will continue to follow and make recommendations along the way. Time with Patient: Less than 30
--- NOTE | 2022-12-16 15:49 | P.PN ---
Subjective Progress Note Date: 12/16/22 Principal diagnosis: status post revision L4-S1 decompression and fusion Patient was examined today at bedside, patient was transferred out of the ICU to a medical/surgical floor. He continues to progress very well. Patient is very eager to go home. I did have a long conversation today about staying in the hospital 1 additional night due to the events that happened after the surgery. Would like all the other medical specialties following to provide discharge recommendations including outpatient medications. Currently denies headaches, lightheadedness, chest pain, shortness of breath, nausea or vomiting Objective - Vital Signs Vital signs: Vital Signs Temp 97.9 F 12/16/22 14:21 Pulse 70 12/16/22 14:21 Resp 19 12/16/22 14:21 BP 149/71 12/16/22 14:21 Pulse Ox 95 12/16/22 14:21 FiO2 35 12/13/22 04:04 Intake & Output 12/15/22 12/16/22 12/16/22 18:59 06:59 18:59 Other: Voiding Method Toilet Toilet Urinal # Voids 2 2 - Exam Gen: AOx3, NAD VSS stable at this time Integument: Dressing was changed today at bedside, kam are all in good position and condition. 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 4/5 strength appreciated in the bilateral lower extremities with hip flexion, knee extension, knee flexion, plantar flexion, dorsiflexion, EHL, FHL Reflexes: 2/4 in all UE and LE Negative Aaron's bilateral Negative Babinski bilateral Negative Clonus bilateral - Labs CBC & Chem 7: 12/16/22 04:18 12/16/22 04:18 Labs: Abnormal Lab Results - Last 24 Hours (Table) 12/15/22 12/15/22 12/16/22 Range/Units 16:33 20:59 04:18 WBC 10.50 H (4.50-10.00) X 10*3/uL RBC 3.55 L (4.40-5.60) X 10*6/uL Hgb 10.1 L (12.0-15.0) d/dL Hct 33.8 L (39.6-50.0) % MCHC 29.9 L (32.0-37.0) d/dL Eosinophils # 0.43 H (0.04-0.35) X 10*3/uL Glucose (70-110) mg/dL POC Glucose (mg/dL) 360 H 186 H (70-110) mg/dL Total Bilirubin (0.3-1.2) mg/dL Alkaline Phosphatase (41-126) U/L Total Protein (6.2-8.2) d/dL Albumin (3.8-4.9) d/dL Albumin/Globulin Ratio (1.60-3.17) Ratio 12/16/22 12/16/22 12/16/22 Range/Units 04:18 06:25 11:25 WBC (4.50-10.00) X 10*3/uL RBC (4.40-5.60) X 10*6/uL Hgb (12.0-15.0) d/dL Hct (39.6-50.0) % MCHC (32.0-37.0) d/dL Eosinophils # (0.04-0.35) X 10*3/uL Glucose 274 H (70-110) mg/dL POC Glucose (mg/dL) 298 H 305 H (70-110) mg/dL Total Bilirubin 0.2 L (0.3-1.2) mg/dL Alkaline Phosphatase 160 H (41-126) U/L Total Protein 5.7 L (6.2-8.2) d/dL Albumin 3.5 L (3.8-4.9) d/dL Albumin/Globulin Ratio 1.59 L (1.60-3.17) Ratio Assessment and Plan Assessment: Postoperative day #6 status post L4-S1 revision decompression and fusion Plan: Pain control, continue with current medications DVT prophylaxis, patient as been started on Xarelto Wound care, discussed showering instructions and use of bandages after discharge Encourage incentive spirometer PT/OT daily, weight-bear as tolerated with walker Other medical center director recommendations Discharge planning: I was able to discuss with the patient reasons for keeping him in hospital total 12/17/2022. He was started on a few different medications, would like all medical specialty recommendations for his medical reconciliation. Anticipate home healthcare also at discharge Time with Patient: Less than 30
[2022-12-16 16:43] LABS: Glucose,Whole Blood 196 mg/dL (70-110)
[2022-12-16] MEDS: risperiDONE 2 MG TAB PO SCH (19:41)
[2022-12-16] MEDS: traZODone HCL 50 MG TAB PO SCH (19:42)
[2022-12-16] MEDS: ATORVASTATIN 40 MG TAB PO SCH (19:42)
[2022-12-16 19:43] VITALS: RESP 18
[2022-12-16 20:21] LABS: Glucose,Whole Blood 385 mg/dL (70-110)
[2022-12-16] MEDS: INSULIN DETEMIR (LEVEMIR) 100 UNIT/ML SYR SQ SCH (20:30)
--- NOTE | 2022-12-16 23:27 | PN ---
PROGRESS NOTE SUBJECTIVE: The patient is status post lumbar surgery the patient is doing much better. OBJECTIVE: CARDIOVASCULAR: S1, S2. LUNGS: Clear. GI: Soft. MUSCULOSKELETAL: He is up ambulating the room. VITAL SIGNS: Temperature 97.9, blood pressure 149/71, O2 is 95% on room air, pulse 75, respiratory rate 19. CARDIOVASCULAR,: S1, S2. GI: Soft. HEMATOLOGY: Negative Homans. PSYCHIATRIC: Fair mood and affect. He possibly will be able to go home tomorrow. Medications were reviewed. He is on a blood thinner for MANI. Continue current treatment. Discharge home tomorrow. Blood thinner etc. and follow up with in a week. Prognosis guarded. MMODL / IJN: [id number] /
[2022-12-17] MEDS: PIPERACILLIN-TAZOBACTAM 3.375 GM in SODIUM CHLORIDE 0.9% 100 ML IVPB SCH ×2 (00:46→07:56)
[2022-12-17] MEDS: ACETAMINOPHEN TAB 325 MG TAB PO SCH ×3 (00:47→12:08)
[2022-12-17] MEDS: LACTATED RINGERS 1,000 ML IV SCH (04:03)
[2022-12-17 06:16] LABS: Glucose,Whole Blood 293 mg/dL (70-110)
[2022-12-17] MEDS: INSULIN ASPART (NovoLOG) 100 UNIT/ML VIAL SQ SCH ×2 (06:51→12:09)
[2022-12-17] MEDS: oxyCODONE-APAP 10-325MG 1 EACH TAB PO PRN (06:51)
[2022-12-17] MEDS: PANTOPRAZOLE 40 MG TABLET PO SCH (06:51)
[2022-12-17] MEDS: APIXABAN 5 MG TAB PO SCH (07:51)
[2022-12-17] MEDS: CHOLECALCIFEROL 25 MCG (1000 IU) TABLET PO SCH (07:51)
[2022-12-17] MEDS: LORATADINE 10 MG TAB PO SCH (07:52)
[2022-12-17] MEDS: ASCORBIC ACID 500 MG TAB PO SCH (07:52)
[2022-12-17] MEDS: LOSARTAN 50 MG TAB PO SCH (07:52)
[2022-12-17] MEDS: ASPIRIN 81 MG PO SCH (07:52)
[2022-12-17] MEDS: FUROSEMIDE 20 MG TAB PO SCH (07:53)
[2022-12-17] MEDS: POTASSIUM CHLORIDE ER 10 MEQ TAB.ER.PRT PO SCH (07:53)
[2022-12-17] MEDS: MULTIVITAMINS, THERA 1 EACH TAB PO SCH (07:53)
[2022-12-17] MEDS: SERTRALINE 100 MG TAB PO SCH (07:53)
[2022-12-17] MEDS: lamoTRIgine 100 MG TAB PO SCH (07:54)
[2022-12-17] MEDS: cloNIDine HCL 0.1 MG TAB PO SCH (07:54)
[2022-12-17] MEDS: hydroCHLOROthiazide 12.5 MG CAP PO SCH (07:54)
[2022-12-17] MEDS: PROPRANOLOL 20 MG TAB PO SCH (07:55)
[2022-12-17 08:58] VITALS: BP 182/75; PULSE 89; TEMP 98.6
[2022-12-17] MEDS: IPRATROPIUM-ALBUTEROL 3 ML NEB INHALATION SCH ×2 (09:15→12:58)
[2022-12-17] MEDS: BUDESONIDE 0.5 MG/2 ML NEBU INHALATION SCH (09:15)
--- NOTE | 2022-12-17 10:04 | P.PN ---
Subjective Progress Note Date: 12/17/22 Principal diagnosis: status post revision L4-S1 decompression and fusion Patient was examined today at bedside. Patient is very eager to go home. Currently denies headaches, lightheadedness, chest pain, shortness of breath, nausea or vomiting Objective - Vital Signs Vital signs: Vital Signs Temp 98.6 F 12/17/22 06:51 Pulse 89 12/17/22 06:51 Resp 18 12/17/22 06:51 BP 182/75 12/17/22 06:51 Pulse Ox 96 12/17/22 06:51 FiO2 35 12/13/22 04:04 Intake & Output 12/16/22 12/17/22 12/17/22 18:59 06:59 18:59 Weight 115.8 kg Other: Voiding Method Toilet # Voids 2 3 - Exam Gen: AOx3, NAD VSS stable at this time Integument: Dressing intact Palpation: Mild tenderness with palpation to the paraspinal lumbar region ROM: Full range of motion in all major muscle groups of the bilateral upper and lower extremities, no focal deficits Sensory Exam: Senory exam to light touch is intact C5-T1 Senosry exam to light touch is intact L2-S1 Motor: 55 strength appreciated in the bilateral upper extremities with shoulder elevation, shoulder abduction, elbow extension, elbow flexion, wrist extension, wrist flexion, 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 4/5 strength appreciated in the bilateral lower extremities with hip flexion, knee extension, knee flexion, plantar flexion, dorsiflexion, EHL, FHL Reflexes: 2/4 in all UE and LE Negative Aaron's bilateral Negative Babinski bilateral Negative Clonus bilateral - Labs CBC & Chem 7: 12/16/22 04:18 12/16/22 04:18 Labs: Abnormal Lab Results - Last 24 Hours (Table) 12/16/22 12/16/22 12/16/22 Range/Units 04:18 11:25 16:42 Glucose 274 H (70-110) mg/dL POC Glucose (mg/dL) 305 H 196 H (70-110) mg/dL Total Bilirubin 0.2 L (0.3-1.2) mg/dL Alkaline Phosphatase 160 H (41-126) U/L Total Protein 5.7 L (6.2-8.2) d/dL Albumin 3.5 L (3.8-4.9) d/dL Albumin/Globulin Ratio 1.59 L (1.60-3.17) Ratio 12/16/22 12/17/22 Range/Units 20:19 06:14 Glucose (70-110) mg/dL POC Glucose (mg/dL) 385 H 293 H (70-110) mg/dL Total Bilirubin (0.3-1.2) mg/dL Alkaline Phosphatase (41-126) U/L Total Protein (6.2-8.2) d/dL Albumin (3.8-4.9) d/dL Albumin/Globulin Ratio (1.60-3.17) Ratio Assessment and Plan Assessment: Postoperative day #7 status post L4-S1 revision decompression and fusion Plan: Pain control, resume Percocet 10mg/325mg DVT prophylaxis, patient as been started on Xarelto Wound care, discussed showering instructions and use of bandages after discharge Encourage incentive spirometer PT/OT daily, weight-bear as tolerated with walker Other medical equipment repairer recommendations Discharge planning: Stable for discharge to home today Time with Patient: Less than 30
[2022-12-17 11:27] LABS: Glucose,Whole Blood 292 mg/dL (70-110)
--- NOTE | 2022-12-17 12:23 | P.DS ---
Providers Date of admission: 12/10/22 09:23 Expected date of discharge: 12/17/22 Attending physician: Naveed Washington DO Consults: 12/10/22 16:24 Consult Physician Routine Consulting Provider: Júnior Meza Consult Reason/Comments: Medical management Do you want consulting provider notified?: Yes 12/12/22 08:29 Consult Physician Urgent Consulting Provider: Sherwin Calderón Consult Reason/Comments: Confusion/agitation Do you want consulting provider notified?: Yes 12/12/22 11:05 Consult Physician Routine Consulting Provider: Vaughn Fields Consult Reason/Comments: delirium/white matter disease /family discussion please Do you want consulting provider notified?: Yes 12/12/22 19:51 Consult Physician Urgent Consulting Provider: Mao Fields Consult Reason/Comments: ICU management Do you want consulting provider notified?: Already Contacted Primary care physician: Júnior Meza [facility] Course: Date of admission: 12/10/2022 Date of discharge: 12/17/2022 Admission diagnosis: Status post revision L4-S1 decompression and fusion Discharge diagnosis: Same Attending physician: Dr. Washington Surgical procedures: Revision L4-S1 decompression and fusion Brief history: Patient is a 62-year-old male with a history of chronic low back pain, bilateral lower extremity weakness and radiculopathy with a history of an L4-L5 decompression. 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 Concerns first attempted, these were unsuccessful. Patient was scheduled for a revision L4 S1 decompression and fusion for 12/10/2022. Hospital course: Details of patient's surgery can be found in operative report. Patient tolerated the procedure well and was subsequently transported to orthopedic floor. Patient's orthopeidc and medical care was provided daily. Patient had daily laboratory tests performed for evaluation of overall blood counts. Patient had daily physical therapy to include strengthening range of motion as well as education with walker ambulation. Patient was treated with heparin and Xarelto for their postoperative DVT prophylaxis during their inpatient stay. Postoperatively patient developed acute hypoxemic and hypercapnic respiratory failure, he was transferred to the ICU for further management By the pulmonology group. There was concern for a pulmonary embolism along with possible aspiration pneumonia. Patient was started on an oral anticoagulant along with antibiotics. Patient progressed well through the postoperative period. Patient reported satisfactory pain control with oral pain medications by postoperative day 2. Patient showed satisfactory progress with physical therapy. Patient moved steadily through the program and had no difficulty meeting the goals by postoperative day 7. Given patient's otherwise satisfactory course and having met physical therapy goals, plan is to discharge patient home on postoperative day 7. Discharge condition/disposition: Patient will be discharged home in stable condition. Discharge medications: Instructions are given on resumption of patient's normal daily medications per primary care recommendation, in addition patient will be prescribed Percocet 7.5 mg/325 mg, senna, Xarelto 10 mg. Please see med list for further description of outpatient Spine Discharge and Recovery Instructions Dressing: Leave your dressing in place for a total of 5 days post operatively. Then you may remove your dressing and leave open to air. Keep the area clean and if not able to keep area clean, then cover with sterile gauze and tape. Showering: You may shower 3 days after your procedure allowing soap and water to run over incision. Do not scrub. Do not soak. Blot dry. Follow up: Please confirm a follow up appointment with your surgeon 3 weeks post operatively. Please make an appointment to follow up with your PCP in 1-2 weeks after surgery for evaluation 3 phase, 3-week plan POST OP WEEKS 1-3 1. Lifting/carrying/pushing/pulling limited to less than 5 pounds. 2. Do not sit for longer than 15 minutes at one time. Get up and walk around. Prolonged sitting is NOT advised. If you lay down, see if you can tolerate laying down on you front (belly side) 3. Walk for periods of 15 minutes = 1 mile but no longer; do it multiple times times each day. 4. Ice your low back after activity. POST OP WEEKS 3-6 1. Lifting limited to less than 20 pounds. 2. Do not sit for longer than 30 minutes at a time. Frequently change positions. Use a sit-to stand workstation or take frequent breaks from sitting if you have returned to work. 3. Walk for 30 minutes each day. If possible, do these three or more times a day POST OP WEEKS 6+ At your 6-week appointment we will give you a physical therapy referral to focus on a core stabilization and strengthening program. You should also work on leg & buttock strengthening, hamstring & quadriceps stretching, and continue a low impact aerobic activity program such as swimming, walking, or riding a stationary bicycle. During the initial 6 weeks after your surgery, you are at the highest risk of re-injuring your spine. You should generally avoid BLTs (bending, lifting and twisting combination motions) and follow the above guidelines to reduce the chance of reinjury. You can anticipate post op appointments in our office at approximately 3 weeks and 6 weeks after your surgery. INCISION CARE: If your incision is not draining you do NOT need to cover it with a dressing. Keep your incision clean, dry and intact. In most cases, we apply skin glue, kam or sutures to the incision at the time of surgery. This will be like a crust or have the appearance of a scab and will fall off in time on its own. The stitches or kam need to be removed at 3 weeks post op appointment. You may begin to shower 3 days after surgery (this allows the glue to zapata well). However, please avoid scrubbing the incision site or peeling off any of the skin glue. This will ensure optimal healing of your incision. Also, during this time avoid soaking the incision area in water - this includes swimming pools, hot tubs or baths. No ointments, lotions or oils on the incision until your surgeon allows. Leave kam, sutures or glue in place. Neurological dysfunction that comes on suddenly can also be a sign of a stroke. Below some common symptoms of a stroke are listed: B - balance difficulty such as sudden onset walking or leaning to one side - NEW E - eye problem such as sudden double vision or trouble seeing on one side - NEW F - Facial weakness or numbness on one side - NEW A - Arm or leg weakness or numbness on one side - NEW S - Slurred speech or difficulty with word finding - NEW T - Time is BRAIN! Call 911 as soon as you recognize these symptoms Diet: Consume a regular diet rich in vegetables and lean protein such as chicken or fish. You should consume in a ratio of approximately 20% fats|40% carbohydrates|40%protein. Vegetables, sweet potatoes, brown rice or quinoa are examples of good carbohydrates. Chips, white bread, cookies and sweets/sugar are examples of bad carbohydrates. Limit your bad carbs, go wild with good carbs. 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 (1) Get Active. Physical activity can help people lose weight, control high blood pressure and cholesterol, feel emotionally better, and sleep better. (2) Control Cholesterol. Avoid a diet high in saturated fat, trans fat, & cholesterol. Limit whole milk & cream, ice cream, butter, egg yolks, processed meats (like sausage and hot dogs), and fatty meats. Choose healthy foods that are low in saturated fat, trans fat and cholesterol which include: Fruits and vegetables, fiber rich grain products (like whole grain pasta and brown rice), lean meat such as chicken, fish, nuts, seeds, and legumes. (3) Eat Better. Eat small portions. Shop at the grocery with a list and do not stray from it. Tips for a healthy diet include: Limit sodium intake to less than 1500mg daily, avoid prepackaged, processed, and fast foods, choose a diet rich in fruits, vegetables, and whole grain, high fiber foods, and limit saturated & cholesterol in your diet. (4) Manage Blood Pressure. If you have high blood pressure, you should have a cuff at home so that you can check your blood pressure regularly. Be sure you have a good cuff. An arm one is generally better than a wrist one. Bring the cuff to a doctor's appointment to validate that the measurements that your cuff are taking are accurate. Take your blood pressure twice daily when you are sitting down and relaxing. Record the numbers in a log and bring this log with you to your doctors' appointments. (5) Lose Weight if your BMI is above 25. A healthy BMI is between 19-25. To calculate Your BMI, you may use a Standard BMI Calculator on the NIH BMI website: <www.nhlbi.nih.gov/guidelines/obesity/BMI/bmicalc.htm>. Weigh oneself daily. If you are overweight, set a goal to lose weight. A pound a week loss if needed is a good target. (6) Reduce Blood Sugar. Limit foods and liquids with "added sugars." (Added sugars include sucrose, fructose, glucose, maltose, dextrose, high fructose corn syrup, corn syrup, concentrated fruit juice and honey). (7) Stop Smoking. If you smoke, quitting smoking is one of the best things that you can do for your health. Smoking increases your risk of heart attack, stroke, and peripheral vascular disease, which is a build-up of plaque in your arteries. Please discard all the cigarettes and lighters in your house. Have a plan for what you will do when you have the urge to smoke. Direct and second- hand smoke shortens your life as well as the lives of your family, friends and others around you. For your health and the health of those around you, please consider quitting! Proper Bending Body Mechanics: Maintain a wide stance with one foot slightly in front of the other. Keep your back straight. Bend utilizing the strength in your hips and knees. Do not bend at the waist. Maintain the lifted object at your waist-level close to your body. Avoid lifting weight that causes immediately pain or pain anywhere in the body afterwards. Smoking/Nicotine If there was ever one thing that you could do to increase your overall health, decrease your risk of cardiovascular problems by about 39% the second you make the choice, it is to STOP SMOKING. Your body's most instant gratification is the second you stop smoking. We have all heard the studies, read the articles but it is true, smoking is extremely bad for your overall health, and moreover it is detrimental to your bone health. Nicotine, IN ANY FORM, kills bone cells, prevents your body from healing fractures, and significantly prolongs healing after surgery. In spine surgery specifically, it increases your risk of not healing your bones to create a fusion and increases your risk of having a revision surgery due to this up to 60%. I know it is hard. I know it feels impossible. But there are ways. Take control of your life. We are here to help you through it. And when you are ready, ask us and we can direct you to help if you desire. Use the START Plan to Quit Smoking (please visit the Helpguide.org website listed below for more information): S = Set a quit date. Choose a date within the next 2 weeks, so you have enough time to prepare without losing your motivation to quit. If you mainly smoke at work, quit on the weekend, so you have a few days to adjust to the change. T = Tell family, friends, and co-workers that you plan to quit. Let your friends and family in on your plan to quit smoking and tell them you need their support and encouragement to stop. Look for a quit regino who wants to stop smoking as well. You can help each other get through the rough times. A = Anticipate and plan for the challenges you'll face while quitting. Most people who begin smoking again do so within the first 3 months. You can help yourself make it through by preparing ahead for common challenges, such as nicotine withdrawal and cigarette cravings. R = Remove cigarettes and other tobacco products from your home, car, and work. Throw away all your cigarettes (no emergency pack!), lighters, ashtrays, and matches. Wash your clothes and freshen up anything that smells like smoke. Shampoo your car, clean your drapes and carpet, and steam your furniture. T = Talk to your doctor about getting help to quit. Your doctor can prescribe medication to help with withdrawal and suggest other alternatives. If you can't see a doctor, you can get many products over the counter at your local pharmacy or grocery store, including the nicotine patch, nicotine lozenges, and nicotine gum. Resources for Quitting Smoking: <https://www.[place].gov/documents/[facility]/Quit_Tobacco_Resources_for_patients_313 480_7.pdf> Supplementation: Take recommended dosages of Vitamin D and Calcium to help fortify your bones and help them to heal. See your health maintenance packet for dosages and recommended levels. DVT/VTE prophylaxis: You will be given compression stockings from the hospital. Wear these daily for the first two weeks after surgery. You may take them off at night. You may be prescribed a medication to help thin your blood. Take this as directed. If you are not prescribed this medication, early and frequent ambulation has been shown to be the best prophylaxis to deep vein thrombosis and sequelae related to this event. Procedures: L4-S1 revision decompression and fusion Patient Condition at Discharge: Good Plan - Discharge Summary Discharge Rx Participant: Yes New Discharge Prescriptions: New traZODone HCL [Desyrel] 50 mg PO HS 30 Days #30 tab Apixaban [Eliquis] 10 mg PO BID 30 Days #60 tab Budesonide [Pulmicort] 0.5 mg INHALATION RT-BID 30 Days #60 ml Sennosides/Docusate Sodium [Senna-S 8.6-50 mg Tablet] 2 each PO DAILY PRN #30 tablet PRN Reason: Constipation cloNIDine HCL [Catapres] 0.1 mg PO TID 30 Days #90 tab Ipratropium-Albuterol Nebulize [Duoneb 0.5 mg-3 mg/3 ml Soln] 3 ml INHALATION RT-QID 30 Days #120 each Propranolol [Inderal] 60 mg PO BID 30 Days #60 tab Insulin Detemir (Levemir) [Levemir] 30 unit SQ HS 90 Days #300 each Atorvastatin [Lipitor] 40 mg PO HS 90 Days #90 tab INSULIN ASPART (NovoLOG) [NovoLOG (formulary)] 0 unit SQ ACHS #0 each risperiDONE [RisperDAL] 2 mg PO HS 30 Days #30 tab cefaDROXiL [Duricef] 500 mg PO Q12HR 5 Days #10 cap oxyCODONE HCL/ACETAMINOPHEN [Percocet 7.5-325 mg] 1 tab PO Q6HR PRN 7 Days #28 tab PRN Reason: Pain Continue Multivitamins, Thera [Multivitamin (formulary)] 1 tab PO DAILY oxyCODONE-APAP 10-325MG [Percocet 10-325 mg] 1 tab PO QID Ascorbic Acid [Vitamin C] 500 mg PO DAILY Aspirin EC [Ecotrin Low Dose] 81 mg PO DAILY Losartan/Hydrochlorothiazide [Hyzaar 100-12.5 Tablet] 1 each PO DAILY Acetaminophen [Tylenol 8 Hour] 1,300 mg PO TID PRN PRN Reason: Pain Cholecalciferol [Vitamin D3 (25 Mcg = 1000 Iu)] 50 mcg PO DAILY Sertraline [Zoloft] 100 mg PO BID Loratadine [Claritin] 10 mg PO DAILY lamoTRIgine [LaMICtal] 200 mg PO BID Pantoprazole [Protonix] 40 mg PO BID Furosemide [Lasix] 20 mg PO DAILY Potassium Chloride [Klor-Con M10] 10 meq PO DAILY Budesonide/Glycopyr/Formoterol [Breztri Aerosphere Inhaler] 2 puff INHALATION BID Discontinued Insulin Degludec [Tresiba Flextouch U-100] 62 unit SQ HS Propranolol HCl [Inderal] 80 mg PO TID Nortriptyline [Pamelor] 100 mg PO HS INSULIN ASPART (NovoLOG) [NovoLOG (formulary)] 30 unit SQ QID Tamsulosin [Flomax] 0.4 mg PO HS Fluvastatin Sodium [Lescol Xl] 80 mg PO HS traZODone HCL [Desyrel] 100 mg PO HS cloNIDine HCL [Catapres] 0.2 mg PO TID Discharge Medication List Multivitamins, Thera [Multivitamin (formulary)] 1 tab PO DAILY 04/05/17 [History] Ascorbic Acid [Vitamin C] 500 mg PO DAILY 01/23/22 [History] Cholecalciferol [Vitamin D3 (25 Mcg = 1000 Iu)] 50 mcg PO DAILY 01/23/22 [History] Loratadine [Claritin] 10 mg PO DAILY 01/23/22 [History] Sertraline [Zoloft] 100 mg PO BID 01/23/22 [History] oxyCODONE-APAP 10-325MG [Percocet 10-325 mg] 1 tab PO QID 01/23/22 [History] Acetaminophen [Tylenol 8 Hour] 1,300 mg PO TID PRN 12/06/22 [History] Aspirin EC [Ecotrin Low Dose] 81 mg PO DAILY 12/06/22 [History] Budesonide/Glycopyr/Formoterol [Breztri Aerosphere Inhaler] 2 puff INHALATION BID 12/06/22 [History] Furosemide [Lasix] 20 mg PO DAILY 12/06/22 [History] Losartan/Hydrochlorothiazide [Hyzaar 100-12.5 Tablet] 1 each PO DAILY 12/06/22 [History] Pantoprazole [Protonix] 40 mg PO BID 12/06/22 [History] Potassium Chloride [Klor-Con M10] 10 meq PO DAILY 12/06/22 [History] lamoTRIgine [LaMICtal] 200 mg PO BID 12/06/22 [History] Apixaban [Eliquis] 10 mg PO BID 30 Days #60 tab 12/16/22 [Rx] Atorvastatin [Lipitor] 40 mg PO HS 90 Days #90 tab 12/16/22 [Rx] Budesonide [Pulmicort] 0.5 mg INHALATION RT-BID 30 Days #60 ml 12/16/22 [Rx] INSULIN ASPART (NovoLOG) [NovoLOG (formulary)] 0 unit SQ ACHS #0 each 12/16/22 [Rx] Insulin Detemir (Levemir) [Levemir] 30 unit SQ HS 90 Days #300 each 12/16/22 [Rx] Ipratropium-Albuterol Nebulize [Duoneb 0.5 mg-3 mg/3 ml Soln] 3 ml INHALATION RT-QID 30 Days #120 each 12/16/22 [Rx] Propranolol [Inderal] 60 mg PO BID 30 Days #60 tab 12/16/22 [Rx] cloNIDine HCL [Catapres] 0.1 mg PO TID 30 Days #90 tab 12/16/22 [Rx] risperiDONE [RisperDAL] 2 mg PO HS 30 Days #30 tab 12/16/22 [Rx] traZODone HCL [Desyrel] 50 mg PO HS 30 Days #30 tab 12/16/22 [Rx] Sennosides/Docusate Sodium [Senna-S 8.6-50 mg Tablet] 2 each PO DAILY PRN #30 tablet 12/17/22 [Rx] cefaDROXiL [Duricef] 500 mg PO Q12HR 5 Days #10 cap 12/17/22 [Rx] oxyCODONE HCL/ACETAMINOPHEN [Percocet 7.5-325 mg] 1 tab PO Q6HR PRN 7 Days #28 tab 12/17/22 [Rx] Follow up Appointment(s)/Referral(s): Naveed Washington DO [Doctor of Osteopathic Medicine] - 1 Week [facility] Visiting Nurse, [NON-STAFF] - 1-2 Days ([facility] will call you to schedule your in home nursing and physical therapy visits. ) Activity/Diet/Wound Care/Special Instructions: Spine Discharge and Recovery Instructions Dressing: Leave your dressing in place for a total of 5 days post operatively. Then you may remove your dressing and leave open to air. Keep the area clean and if not able to keep area clean, then cover with sterile gauze and tape. Showering: You may shower 3 days after your procedure allowing soap and water to run over incision. Do not scrub. Do not soak. Blot dry. Follow up: Please confirm a follow up appointment with your surgeon 3 weeks post operatively. Please make an appointment to follow up with your PCP in 1-2 weeks after surgery for evaluation 3 phase, 3-week plan POST OP WEEKS 1-3 1. Lifting/carrying/pushing/pulling limited to less than 5 pounds. 2. Do not sit for longer than 15 minutes at one time. Get up and walk around. Prolonged sitting is NOT advised. If you lay down, see if you can tolerate laying down on you front (belly side) 3. Walk for periods of 15 minutes = 1 mile but no longer; do it multiple times times each day. 4. Ice your low back after activity. POST OP WEEKS 3-6 1. Lifting limited to less than 20 pounds. 2. Do not sit for longer than 30 minutes at a time. Frequently change positions. Use a sit-to stand workstation or take frequent breaks from sitting if you have returned to work. 3. Walk for 30 minutes each day. If possible, do these three or more times a day POST OP WEEKS 6+ At your 6-week appointment we will give you a physical therapy referral to focus on a core stabilization and strengthening program. You should also work on leg & buttock strengthening, hamstring & quadriceps stretching, and continue a low impact aerobic activity program such as swimming, walking, or riding a stationary bicycle. During the initial 6 weeks after your surgery, you are at the highest risk of re-injuring your spine. You should generally avoid BLTs (bending, lifting and twisting combination motions) and follow the above guidelines to reduce the chance of reinjury. You can anticipate post op appointments in our office at approximately 3 weeks and 6 weeks after your surgery. INCISION CARE: If your incision is not draining you do NOT need to cover it with a dressing. Keep your incision clean, dry and intact. In most cases, we apply skin glue, kam or sutures to the incision at the time of surgery. This will be like a crust or have the appearance of a scab and will fall off in time on its own. The stitches or kam need to be removed at 3 weeks post op appointment. You may begin to shower 3 days after surgery (this allows the glue to zapata well). However, please avoid scrubbing the incision site or peeling off any of the skin glue. This will ensure optimal healing of your incision. Also, during this time avoid soaking the incision area in water - this includes swimming pools, hot tubs or baths. No ointments, lotions or oils on the incision until your surgeon allows. Leave kam, sutures or glue in place. Neurological dysfunction that comes on suddenly can also be a sign of a stroke. Below some common symptoms of a stroke are listed: B - balance difficulty such as sudden onset walking or leaning to one side - NEW E - eye problem such as sudden double vision or trouble seeing on one side - NEW F - Facial weakness or numbness on one side - NEW A - Arm or leg weakness or numbness on one side - NEW S - Slurred speech or difficulty with word finding - NEW T - Time is BRAIN! Call 911 as soon as you recognize these symptoms Diet: Consume a regular diet rich in vegetables and lean protein such as chicken or fish. You should consume in a ratio of approximately 20% fats|40% carbohydrates|40%protein. Vegetables, sweet potatoes, brown rice or quinoa are examples of good carbohydrates. Chips, white bread, cookies and sweets/sugar are examples of bad carbohydrates. Limit your bad carbs, go wild with good carbs. 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 (1) Get Active. Physical activity can help people lose weight, control high blood pressure and cholesterol, feel emotionally better, and sleep better. (2) Control Cholesterol. Avoid a diet high in saturated fat, trans fat, & cholesterol. Limit whole milk & cream, ice cream, butter, egg yolks, processed meats (like sausage and hot dogs), and fatty meats. Choose healthy foods that are low in saturated fat, trans fat and cholesterol which include: Fruits and vegetables, fiber rich grain products (like whole grain pasta and brown rice), lean meat such as chicken, fish, nuts, seeds, and legumes. (3) Eat Better. Eat small portions. Shop at the grocery with a list and do not stray from it. Tips for a healthy diet include: Limit sodium intake to less than 1500mg daily, avoid prepackaged, processed, and fast foods, choose a diet rich in fruits, vegetables, and whole grain, high fiber foods, and limit saturated & cholesterol in your diet. (4) Manage Blood Pressure. If you have high blood pressure, you should have a cuff at home so that you can check your blood pressure regularly. Be sure you have a good cuff. An arm one is generally better than a wrist one. Bring the cuff to a doctor's appointment to validate that the measurements that your cuff are taking are accurate. Take your blood pressure twice daily when you are sitting down and relaxing. Record the numbers in a log and bring this log with you to your doctors' appointments. (5) Lose Weight if your BMI is above 25. A healthy BMI is between 19-25. To calculate Your BMI, you may use a Standard BMI Calculator on the NIH BMI website: <www.nhlbi.nih.gov/guidelines/obesity/BMI/bmicalc.htm>. Weigh oneself daily. If you are overweight, set a goal to lose weight. A pound a week loss if needed is a good target. (6) Reduce Blood Sugar. Limit foods and liquids with "added sugars." (Added sugars include sucrose, fructose, glucose, maltose, dextrose, high fructose corn syrup, corn syrup, concentrated fruit juice and honey). (7) Stop Smoking. If you smoke, quitting smoking is one of the best things that you can do for your health. Smoking increases your risk of heart attack, stroke, and peripheral vascular disease, which is a build-up of plaque in your arteries. Please discard all the cigarettes and lighters in your house. Have a plan for what you will do when you have the urge to smoke. Direct and second- hand smoke shortens your life as well as the lives of your family, friends and others around you. For your health and the health of those around you, please co nsider quitting! Proper Bending Body Mechanics: Maintain a wide stance with one foot slightly in front of the other. Keep your back straight. Bend utilizing the strength in your hips and knees. Do not bend at the waist. Maintain the lifted object at your waist-level close to your body. Avoid lifting weight that causes immediately pain or pain anywhere in the body afterwards. Smoking/Nicotine If there was ever one thing that you could do to increase your overall health, decrease your risk of cardiovascular problems by about 39% the second you make the choice, it is to STOP SMOKING. Your body's most instant gratification is the second you stop smoking. We have all heard the studies, read the articles but it is true, smoking is extremely bad for your overall health, and moreover it is detrimental to your bone health. Nicotine, IN ANY FORM, kills bone cells, prevents your body from healing fractures, and significantly prolongs healing after surgery. In spine surgery specifically, it increases your risk of not healing your bones to create a fusion and increases your risk of having a revision surgery due to this up to 60%. I know it is hard. I know it feels impossible. But there are ways. Take control of your life. We are here to help you through it. And when you are ready, ask us and we can direct you to help if you desire. Use the START Plan to Quit Smoking (please visit the [employer] website listed below for more information): S = Set a quit date. Choose a date within the next 2 weeks, so you have enough time to prepare without losing your motivation to quit. If you mainly smoke at work, quit on the weekend, so you have a few days to adjust to the change. T = Tell family, friends, and co-workers that you plan to quit. Let your friends and family in on your plan to quit smoking and tell them you need their support and encouragement to stop. Look for a quit regino who wants to stop smoking as well. You can help each other get through the rough times. A = Anticipate and plan for the challenges you'll face while quitting. Most people who begin smoking again do so within the first 3 months. You can help yourself make it through by preparing ahead for common challenges, such as nicotine withdrawal and cigarette cravings. R = Remove cigarettes and other tobacco products from your home, car, and work. Throw away all your cigarettes (no emergency pack!), lighters, ashtrays, and matches. Wash your clothes and freshen up anything that smells like smoke. Shampoo your car, clean your drapes and carpet, and steam your furniture. T = Talk to your doctor about getting help to quit. Your doctor can prescribe medication to help with withdrawal and suggest other alternatives. If you can't see a doctor, you can get many products over the counter at your local pharmacy or grocery store, including the nicotine patch, nicotine lozenges, and nicotine gum. Resources for Quitting Smoking: <https://www.[place].gov/documents/[facility]/Quit_Tobacco_Resources_for_patients_313 480_7.pdf> Supplementation: Take recommended dosages of Vitamin D and Calcium to help fortify your bones and help them to heal. See your health maintenance packet for dosages and recommended levels. DVT/VTE prophylaxis: You will be given compression stockings from the hospital. Wear these daily for the first two weeks after surgery. You may take them off at night. You may be prescribed a medication to help thin your blood. Take this as directed. If you are not prescribed this medication, early and frequent ambulation has been shown to be the best prophylaxis to deep vein thrombosis and sequelae related to this event. Discharge Disposition: HOME WITH HOME HEALTH SERVICES
--- NOTE | 2022-12-17 15:17 | P.PN ---
Subjective Progress Note Date: 12/17/22 I am seeing this patient in new consultation today 12/13/2022 for acute hypoxemic and hypercapnic respiratory failure that developed last night, requiring BiPAP and transfer to the ICU. Patient is a 62-year-old white male with past medical history significant for chronic lower back pain, prior lumbar spine laminectomy, prior cervical spine fusion, diabetes mellitus type 2, hypertension, hyperlipidemia, benign prostate hyperplasia, and obstructive sleep apnea not maintained on CPAP. The patient was brought in on December 10 for an elective revision of his lumbar spondylolisthesis requiring a L4 through S1 fusion. He is currently postoperative day #3. Initially, the patient was extubated and admitted to the general medical floor. He did develop some delirium postoperatively. The patient has known previous reactions to anesthesia. According to the family, the patient has had worsening memory loss, confusion, agitation preoperatively for the last 6 months. This has been worked up on an outpatient basis. Last night the patient was reportedly observed coughing and choking, was cyanotic, and developed some acute respiratory distress. According to the family, the patient has history of aspiration pneumonia and difficulty swallowing since his previous cervical spine fusion in January,. A rapid response team was called. He required transfer to the intensive care unit on the BiPAP with current settings of 14/5 and FiO2 of 35%. He is achieving adequate tidal volumes. Most recent ABGs, show an improvement in his hypercapnia, with a PaO2 of 142, pCO2 of 39, pH of 7.43. This was done on FiO2 of 50%. He did require Precedex infusion for acute agitation, which is currently infusing at 0.3 mcg/kg/h. He is calm and tolerating the BiPAP. Most recent chest x-ray shows bibasilar patchy airspace opacities concerning for pneumonia. I did start the patient on Zosyn. Most recent CBC shows a WBC count of 18.2, hemoglobin 11.6, hematocrit 37.3, platelets 359. BMP shows a sodium 1 35, potassium 4.2, chloride 99, serum bicarb 26, BUN 9, creatinine 0.6, glucose 259. No IV maintenance fluids are currently infusing. NT proBNP level was mildly elevated at 1870. He was given a dose of Lasix 40 mg IV push once. Fluid balance is -1.8 L over last 24 hours. A human resources safety manager is at the bedside. Patient will be monitored in the intensive care unit. The patient is seen today 12/14/2022 in follow-up in the intensive care unit. He is currently resting comfortably in bed. Awake and alert in no acute distress. He did not require BiPAP last night. Currently maintaining good O2 s aturations in the upper 90s on room air. He's been afebrile. Hemodynamically stable. He remains on heparin drip per weight base protocol. Urine culture revealed no growth. White count 11.0. Hemoglobin 9.6. Platelets 305. Sodium 133. Potassium 3.3. Bicarb 24. BUN 15. Creatinine 0.6. Glucose 140. He is continued on DuoNeb inhalations and antibiotics in the form of Zosyn. The patient is seen today 12/15/2022 in follow-up in the intensive care unit. He is awake and alert in no acute distress. Sitting up in a chair at the bedside. Maintaining good O2 saturations in the 90s on room air. Chest x-ray reveals a small right pleural effusion with improvement of bibasilar patchy airspace opacities. He continues to work well with the incentive spirometer. Urine culture revealed no growth. White count 11.0. Hemoglobin 10.6. Platelets 405. Sodium 135. Potassium 4.6. Bicarb 25. BUN 13. Creatinine 0.57. Glucose 233. He remains on a heparin drip. On Zosyn. His back pain is improving. He is much stronger today compared to yesterday. Up ambulating with assistance. Progress note dated 12/16/2022. The patient is seen today in room 461. The patient's on room air. He's not receiving any IV fluids. The patient has received a factor X a inhibitor for his pulmonary embolism. Chest x-ray is improved. Labs today include a white count 10.5, hemoglobin 10.1, hematocrit 33.8, and a platelet count that is 422,000. Sodium 140, potassium 4.6, chlorides 102, CO2 28, BUN 10, and creatinine 0.7. On today's evaluation of 2022, the patient is on room air oxygen. Denies having any specific complaints. Overall respiratory status is back to its baseline. Surgical wound over the back is dry clean and intact. He is eliminating without a walker.No new labs are available from today. Labs from yesterday were essentially within normal limits. Blood sugar slightly elevated on today's evaluation. The patient is taking Percocet for pain control. The patient also has back on his original all medication. He is going to be discharged home on Duricef. He is also on Breztri as maintenance and is also noted to cognition without liquids. Objective - Vital Signs Vital signs: Vital Signs Temp 98.6 F 12/17/22 06:51 Pulse 89 12/17/22 06:51 Resp 18 12/17/22 06:51 BP 182/75 12/17/22 06:51 Pulse Ox 96 12/17/22 06:51 FiO2 35 12/13/22 04:04 Intake & Output 12/16/22 12/17/22 12/17/22 18:59 06:59 18:59 Weight 115.8 kg Other: Voiding Method Toilet # Voids 2 3 - Exam No acute distress, oriented 3. HEENT examination is grossly unremarkable. Neck supple. Full range of motion. No adenopathy thyromegaly or neck vein distention. Cardiovascular examination reveals regular rhythm rate. S1-S2 normal. No S3 or S4. No discernible murmur noted. Lungs reveal clear breath sounds. Breath sounds are equal bilaterally. No adventitious lung sounds including wheezes rhonchi or crackles. Room air saturation is 98%. Abdomen soft bowel sounds are heard. No masses or tenderness. Extremities are intact. No cyanosis clubbing or edema. Skin is without rash or lesion. Neurologic examination is brief but nonfocal. - Labs CBC & Chem 7: 12/16/22 04:18 12/16/22 04:18 Labs: Abnormal Lab Results - Last 24 Hours (Table) 12/16/22 12/16/22 12/17/22 Range/Units 16:42 20:19 06:14 POC Glucose (mg/dL) 196 H 385 H 293 H (70-110) mg/dL 12/17/22 Range/Units 11:25 POC Glucose (mg/dL) 292 H (70-110) mg/dL Assessment and Plan Plan: Acute hypoxemic and hypercapnic respiratory failure possibly secondary to aspiration. Chest x-ray shows bibasilar infiltrates concerning for pneumonia. Initially on BiPAP with settings 14/5 and an FiO2 of 35%. NT proBNP was also mildly elevated at 1870. Patient was given a one-time additional dose of Lasix. CT angiogram revealed motion artifact but possible filling defects in the subsegmental pulmonary artery supplying the right middle lobe. Currently on Eliquis. The patient is back to room air oxygen. Acute delirium, possibly related to anesthesia. Initially on a Precedex infusion, improved and alert and oriented 3. Postoperative day #7 following a revision of the lumbar spine related to spondylolisthesis with a L4 to S1 fusion. History of cervical spine fusion, done January,. Diabetes mellitus type 2, insulin-dependent. Benign essential hypertension. Hyperlipidemia. Benign prostatic hyperplasia. Obstructive sleep apnea, not maintained on CPAP. Morbid obesity with a BMI of 40. Plan: The patient can be discharged home on a course of antibiotics and his routine r espiratory medication. Increase mobility as tolerated Continue anticoagulation Follow-up in the office Patient is to be discharged today
--- NOTE | 2022-12-22 01:31 | P.PN ---
Subjective Progress Note Date: 12/15/[address] Meza Patient is a 62-year-old male with a past medical history of chronic low back pa in, prior lumbar spine laminectomy, prior cervical spine fusion surgery, diabetes type 2, hypertension, hyperlipidemia, BPH, BMI morbid obesity 40.0 and obstructive sleep apnea not on CPAP at home was admitted to the hospital on 12/10/2022 for elective revision of his lumbar spondylosis requiring L4-S1 fusion. Patient was transferred to general medical floor. He developed increased coughing and choking and became cyanotic and went into acute hypoxic respiratory failure. Patient was transferred to intensive care unit and was placed on BiPAP. 12/15/2022 Patient was transferred to general medical floor today. Patient is awake alert and oriented x3. Currently sitting up in the chair. Oxygen titrated down to room air and is saturating in 90s. Patient has been afebrile. No cough or sputum production. Chest x-ray showed small right pleural effusion with improvement of bibasilar patchy airspace opacities. Patient is using incentive spirometry. Laboratory test showed WBC 11.0 hemoglobin 10.6 and platelets 405, sodium 135 potassium 4.6 chloride 101 bicarb is 25 BUN 13 and creatinine 0.57 blood sugar is 233. And calcium 8.7. Patient is being continued on heparin drip and also on antibiotics now on Zosyn. Back pain is better controlled. Current medications reviewed. Objective - Vital Signs Vital signs: Vital Signs Temp 98.2 F 12/15/22 14:46 Pulse 78 12/15/22 14:46 Resp 14 12/15/22 14:46 BP 140/63 12/15/22 14:46 Pulse Ox 94 L 12/15/22 08:00 FiO2 35 12/13/22 04:04 Intake & Output 12/15/22 12/15/22 12/16/22 06:59 18:59 06:59 Intake Total 519.827 Balance 519.827 Weight 113.2 kg Intake: Intake, IV Titration 519.827 Amount Heparin Sod,Pork in 0.45% 419.827 NaCl 25,000 unit In 0.45 % NaCl 1 250ml.bag @ 18 UNITS/KG/HR 21.15 mls/hr IV .[id number] [facility] Rx#: [id number] Piperacillin-Tazobactam 3 100 .375 gm In Sodium Chloride 0.9% 100 ml @ 25 mls/hr IVPB Q8HR [facility] Rx# :[id number] Other: Voiding Method Toilet Urinal # Voids 1 2 - Exam PHYSICAL EXAMINATION: Patient is lying in the bed comfortably, no acute distress, awake alert and oriented.. HEENT: Normocephalic. Neck is supple. Pupils reactive. Nostrils clear. Oral cavity is moist. Neck reveals no JVD, carotid bruits, or thyromegaly. CHEST EXAMINATION: Trachea is central. Symmetrical expansion. Bibasilar diminished sounds. No wheezing or rhonchi. CARDIAC: Normal S1, S2 with no gallops. No murmurs ABDOMEN: Soft. Bowel sounds present. Nontender. No organomegaly. No abdominal bruits. Extremities: reveal no edema. No clubbing or cyanosis Lumbar spinal surgical site is bandaged. Neurologically awake, alert, oriented x3 with well-coordinated movements. No focal deficits noted Skin: No rash or skin lesions. Psychiatric: Coperative. Nonsuicidal, Musculoskeletal: No joint swelling or deformity. Normal range of motion. - Labs CBC & Chem 7: 12/16/22 04:18 12/16/22 04:18 Labs: Abnormal Lab Results - Last 24 Hours (Table) 12/14/22 12/15/22 12/15/22 Range/Units 20:13 05:22 05:22 WBC 11.0 H (3.8-10.6) k/uL RBC 3.70 L (4.30-5.90) m/uL Hgb 10.6 L (13.0-17.5) gm/dL Hct 34.5 L (39.0-53.0) % MCHC 30.7 L (31.0-37.0) g/dL APTT 39.7 H (22.0-30.0) sec Sodium (137-145) mmol/L Creatinine (0.66-1.25) mg/dL Glucose (74-99) mg/dL POC Glucose (mg/dL) 249 H (70-110) mg/dL 12/15/22 12/15/22 12/15/22 Range/Units 05:22 06:05 11:54 WBC (3.8-10.6) k/uL RBC (4.30-5.90) m/uL Hgb (13.0-17.5) gm/dL Hct (39.0-53.0) % MCHC (31.0-37.0) g/dL APTT (22.0-30.0) sec Sodium 135 L (137-145) mmol/L Creatinine 0.57 L (0.66-1.25) mg/dL Glucose 233 H (74-99) mg/dL POC Glucose (mg/dL) 219 H 195 H (70-110) mg/dL 12/15/22 Range/Units 16:33 WBC (3.8-10.6) k/uL RBC (4.30-5.90) m/uL Hgb (13.0-17.5) gm/dL Hct (39.0-53.0) % MCHC (31.0-37.0) g/dL APTT (22.0-30.0) sec Sodium (137-145) mmol/L Creatinine (0.66-1.25) mg/dL Glucose (74-99) mg/dL POC Glucose (mg/dL) 360 H (70-110) mg/dL Assessment and Plan Assessment: Acute hypoxemic and hypercapnic respiratory failure possible aspiration/pneumonia. Currently off BiPAP and is on room air. Filling defects noted within the subsegmental pulmonary arteries supplying right middle lobe suggesting PE as per CTA chest. Acute delirium. Improved now Revision of lumbar spine spondylosis with L4-S1 fusion surgery postoperative day 5 History of cervical spine fusion surgery in January 2022 Diabetes type 2 insulin-dependent with mild hyperglycemia Hypertension BPH Hyperlipidemia Morbid obesity with BMI of 40.0 Obstructive sleep apnea not on CPAP at home currently DVT prophylaxis Plan: Patient will be continued on incentive spirometry and oxygen titrated down to room air. Continue with antibiotics in the form of Zosyn for aspiration pneumonia. Heparin drip has been discontinued and started on Eliquis due to PE. Continue to monitor CBC and sliding scale and better blood sugar control. Pulmonary is on board. Further recommendations based on the clinical course.
== END 2022-12-17 14:14 | disposition home health service (06) | DRG 453 ==
LOC: 2ORMAIN 09:23 → EDSTATUS 14:35 → 4SSUR 16:56 → 2SICU 12-12 19:37 → 4SSUR 12-15 15:06
PROVIDERS: ADMIT Orthopaedic Surgery; ATTEND Orthopaedic Surgery
PROC: 0SG0071 Fusion of Lumbar Vertebral Joint with Autologous Tissue Substitute, Posterior Approach, Posterior Column, Open Approach (ICD-10-PCS; 2022-12-10)
PROC: 0SG3071 Fusion of Lumbosacral Joint with Autologous Tissue Substitute, Posterior Approach, Posterior Column, Open Approach (ICD-10-PCS; 2022-12-10)
PROC: 01NB0ZZ Release Lumbar Nerve, Open Approach (ICD-10-PCS; 2022-12-10)
PROC: 0ST40ZZ Resection of Lumbosacral Disc, Open Approach (ICD-10-PCS; 2022-12-10)
PROC: 3E0U0GB Introduction of Recombinant Bone Morphogenetic Protein into Joints, Open Approach (ICD-10-PCS; 2022-12-10)
PROC: 8E0WXBZ Computer Assisted Procedure of Trunk Region (ICD-10-PCS; 2022-12-10)
PROC: 0SG30AJ Fusion of Lumbosacral Joint with Interbody Fusion Device, Posterior Approach, Anterior Column, Open Approach (ICD-10-PCS; principal; 2022-12-10 10:45)
PROC: 5A09457 Assistance with Respiratory Ventilation, 24-96 Consecutive Hours, Continuous Positive Airway Pressure (ICD-10-PCS; 2022-12-13)
DX: M43.17 Spondylolisthesis, lumbosacral region (principal); G93.41 Metabolic encephalopathy; I26.99 Other pulmonary embolism without acute cor pulmonale; J96.01 Acute respiratory failure with hypoxia; J96.02 Acute respiratory failure with hypercapnia; D62 Acute posthemorrhagic anemia; E87.20 Acidosis, unspecified; Z68.41 Body mass index [BMI] 40.0-44.9, adult; E11.65 Type 2 diabetes mellitus with hyperglycemia; E66.01 Morbid (severe) obesity due to excess calories; E78.5 Hyperlipidemia, unspecified; F32.A Depression, unspecified; F41.9 Anxiety disorder, unspecified; G47.33 Obstructive sleep apnea (adult) (pediatric); H91.90 Unspecified hearing loss, unspecified ear; I10 Essential (primary) hypertension; K21.9 Gastro-esophageal reflux disease without esophagitis; K59.00 Constipation, unspecified; M47.27 Other spondylosis with radiculopathy, lumbosacral region; N40.0 Benign prostatic hyperplasia without lower urinary tract symptoms; T41.45XA Adverse effect of unspecified anesthetic, initial encounter; Z98.1 Arthrodesis status; Z79.01 Long term (current) use of anticoagulants; Z79.4 Long term (current) use of insulin; Z79.51 Long term (current) use of inhaled steroids; Z79.82 Long term (current) use of aspirin; Z79.899 Other long term (current) drug therapy; Z87.01 Personal history of pneumonia (recurrent); Z87.891 Personal history of nicotine dependence; Z88.8 Allergy status to other drugs, medicaments and biological substances
CPT/HCPCS: 36600; 70450; 71045; 71275; 72100; 72131; 80048; 80053; 81001; 82140; 82607; 82746; 82805; 83036; 83880; 84132; 84145; 84443; 84484; 85025; 85027; 85379; 85610; 85730; 86618; 86850; 86900; 86901; 87086; 93306; 93970; 94640; 94660; 94760; 95816

== ENCOUNTER 2023-05-22 00:16 | Emergency (ER) | payer MEDICARE ==
--- NOTE | 2023-05-22 01:11 | ED ---
General Adult HPI - General Source: patient, police, RN notes reviewed, old records reviewed Mode of arrival: ambulatory Limitations: no limitations <Mao Hernandez - Last Filed: 05/22/23 01:07> <Ricardo Kirkland - Last Filed: 05/29/23 14:06> - General Chief complaint: Psychiatric Symptoms Stated complaint: Mental Health Petition Time Seen by Provider: 05/22/23 00:34 - History of Present Illness Initial comments: 62-year-old male brought in for mental health evaluation. Patient has been petitioned by family for increased aggression and inappropriate use of his medication. Patient denies this. He has no physical complaints. He is alert and oriented to time my evaluation. (Mao Hernandez) - Related Data Home Medications Medication Instructions Recorded Confirmed Loratadine [Claritin] 10 mg PO DAILY 01/23/22 05/22/23 Sertraline [Zoloft] 100 mg PO BID 01/23/22 05/22/23 Furosemide [Lasix] 20 mg PO DAILY 12/06/22 05/22/23 Losartan/Hydrochlorothiazide 1 tab PO DAILY 12/06/22 05/22/23 [Hyzaar 100-12.5 Tablet] Pantoprazole [Protonix] 40 mg PO BID 12/06/22 05/22/23 Potassium Chloride [Klor-Con M10] 10 meq PO DAILY 12/06/22 05/22/23 ALPRAZolam [Xanax] 1 mg PO HS 05/22/23 05/22/23 Albuterol Sulfate [Albuterol 2 puff INHALATION RT-Q6H PRN 05/22/23 05/22/23 Sulfate Hfa] Apixaban [Eliquis] 5 mg PO BID 05/22/23 05/22/23 INSULIN ASPART (NovoLOG) [NovoLOG See Protocol SQ ACHS 05/22/23 05/22/23 (formulary)] Insulin Degludec [Tresiba 1 dose SQ DAILY 05/22/23 05/22/23 Flextouch U-200 Pen] Lisdexamfetamine Dimesylate 30 mg PO DAILY 05/22/23 05/22/23 [Vyvanse] Propranolol HCl 80 mg PO TID 05/22/23 05/22/23 Tamsulosin [Flomax] 0.4 mg PO DAILY 05/22/23 05/22/23 cloNIDine HCL 0.2 mg PO TID 05/22/23 05/22/23 hydroCHLOROthiazide [Hydrodiuril] 100 mg PO DAILY 05/22/23 05/22/23 lamoTRIgine [LaMICtal] 200 mg PO BID 05/22/23 05/22/23 traZODone HCL [Desyrel] 100 mg PO HS 05/22/23 05/22/23 Previous Rx's Medication Instructions Recorded Atorvastatin [Lipitor] 40 mg PO HS 90 Days #90 tab 12/16/22 Allergies Allergy/AdvReac Type Severity Reaction Status Date / Time gluten Allergy Unknown Verified 05/22/23 11:27 tetracycline AdvReac TURNED Verified 05/22/23 11:27 TEETH DARK Review of Systems ROS Other: All systems not noted in ROS Statement are negative. <Mao Hernandez - Last Filed: 05/22/23 01:07> ROS Other: All systems not noted in ROS Statement are negative. <Ricardo Kirkland - Last Filed: 05/29/23 14:06> ROS Statement: Those systems with pertinent positive or pertinent negative responses have been documented in the HPI. Past Medical History Past Medical History: Diabetes Mellitus, GERD/Reflux, Hearing Disorder / Deaf ness, Hyperlipidemia, Hypertension, Prostate Disorder, Sleep Apnea/CPAP/BIPAP Additional Past Medical History / Comment(s): supposed to use CPAP-NOT USING, celiac disease, radha. arms/LEGS N/T, pain, frequent falls related to failed back surg. per spouse, HX ASPIRATION PNEUMONIA 07/2022, VIEJAS History of Any Multi-Drug Resistant Organisms: None Reported Past Surgical History: Back Surgery, Hernia Repair, Tonsillectomy Additional Past Surgical History / Comment(s): laminectomy 2012, lumbar fusion 2017, hernia repair x2, cerivcal FUSION surgery 01/2022. HERNIA X 2, COLONOSCOPY, Past Anesthesia/Blood Transfusion Reactions: Previous Problems w/ Anesthesia Additional Past Anesthesia/Blood Transfusion Reaction / Comment(s): wakes up combative after anesthesia Past Psychological History: Anxiety, Depression Smoking Status: Former smoker Past Alcohol Use History: None Reported Past Drug Use History: None Reported - Past Family History Mother Family Medical History: No Reported History <Mao Hernandez - Last Filed: 05/22/23 01:07> General Exam Limitations: no limitations General appearance: alert, in no apparent distress Head exam: Present: atraumatic, normocephalic Eye exam: Present: normal appearance, PERRL ENT exam: Present: normal exam Neck exam: Present: normal inspection. Absent: tenderness, meningismus Cardiovascular Exam: Present: regular rate, normal rhythm GI/Abdominal exam: Present: soft. Absent: distended, tenderness Neurological exam: Present: alert. Absent: motor sensory deficit Psychiatric exam: Present: agitated Skin exam: Present: warm, dry, intact <Mao Hernandez Sugey - Last Filed: 05/22/23 01:07> General appearance: alert, in no apparent distress Head exam: Present: atraumatic, normocephalic, normal inspection Eye exam: Present: normal appearance, PERRL, EOMI. Absent: scleral icterus, conjunctival injection, periorbital swelling ENT exam: Present: normal exam, mucous membranes moist Neck exam: Present: normal inspection. Absent: tenderness, meningismus, lymphadenopathy Respiratory exam: Present: normal lung sounds bilaterally. Absent: respiratory distress, wheezes, rales, rhonchi, stridor Cardiovascular Exam: Present: regular rate, normal rhythm, normal heart sounds. Absent: systolic murmur, diastolic murmur, rubs, gallop, clicks GI/Abdominal exam: Present: soft, normal bowel sounds. Absent: distended, ten derness, guarding, rebound, rigid Extremities exam: Present: normal inspection, full ROM, normal capillary refill. Absent: tenderness, pedal edema, joint swelling, calf tenderness Back exam: Present: normal inspection Neurological exam: Present: alert, oriented X3, CN II-XII intact Psychiatric exam: Present: normal affect, normal mood Skin exam: Present: warm, dry, intact, normal color. Absent: rash <Ricardo Kirkland - Last Filed: 05/29/23 14:06> Course <Mao Hernandez Sugey - Last Filed: 05/22/23 01:07> Vital Signs 05/22/23 05/22/23 05/22/23 00:20 06:55 22:00 Temperature 97.8 F 97.4 F L 97.3 F L Pulse Rate 71 68 98 Respiratory 22 18 18 Rate Blood Pressure 176/66 183/86 182/84 O2 Sat by Pulse 98 99 97 Oximetry - Reevaluation(s) Reevaluation #1: 05/22/23 01:11 Cleared for EPS (Mao Hernandez) EKG Findings - EKG Comments: EKG Findings:: EKG is sinus 65 TX 160 QRS 94 QTC 418 <Ricardo Kirkland - Last Filed: 05/29/23 14:06> Medical Decision Making - Lab Data Result diagrams: 05/22/23 15:08 05/22/23 15:08 <Ricardo Kirkland - Last Filed: 05/29/23 14:06> - Medical Decision Making 62 male to the emergency department for evaluation, patient Dese for evaluation of psychiatric illness. Patient be transferred for inpatient psychiatric evaluation and treatment, patient's petition by family (Ricardo Kirkland) - Lab Data Lab Results 05/22/23 05/22/23 05/22/23 Range/Units 00:53 00:53 15:08 WBC 9.0 (3.8-10.6) k/uL RBC 4.84 (4.30-5.90) m/uL Hgb 14.1 (13.0-17.5) gm/dL Hct 42.2 (39.0-53.0) % MCV 87.1 (80.0-100.0) fL MCH 29.1 (25.0-35.0) pg MCHC 33.4 (31.0-37.0) g/dL RDW 14.8 (11.5-15.5) % Plt Count 231 (150-450) k/uL MPV 8.8 Neutrophils % 70 % Lymphocytes % 20 % Monocytes % 4 % Eosinophils % 3 % Basophils % 1 % Neutrophils # 6.2 (1.3-7.7) k/uL Lymphocytes # 1.8 (1.0-4.8) k/uL Monocytes # 0.4 (0-1.0) k/uL Eosinophils # 0.3 (0-0.7) k/uL Basophils # 0.0 (0-0.2) k/uL Sodium (137-145) mmol/L Potassium (3.5-5.1) mmol/L Chloride (98-107) mmol/L Carbon Dioxide (22-30) mmol/L Anion Gap mmol/L BUN (9-20) mg/dL Creatinine (0.66-1.25) mg/dL Est GFR (CKD-EPI)AfAm (>60 ml/min/1.73 sqM) Est GFR (CKD-EPI)NonAf (>60 ml/min/1.73 sqM) Glucose (74-99) mg/dL POC Glucose (mg/dL) (70-110) mg/dL POC Glu [employer] ID Calcium (8.4-10.2) mg/dL Total Bilirubin (0.2-1.3) mg/dL AST (17-59) U/L ALT (4-49) U/L Alkaline Phosphatase (38-126) U/L Total Protein (6.3-8.2) g/dL Albumin (3.5-5.0) g/dL Urine Color Light Yellow Urine Appearance Clear (Clear) Urine pH 6.5 (5.0-8.0) Ur Specific [place] 1.020 (1.001-1.035) Urine Protein Negative (Negative) Urine Glucose (UA) 4+ (Negative) Urine Ketones Negative (Negative) Urine Blood Negative (Negative) Urine Nitrite Negative (Negative) Urine Bilirubin Negative (Negative) Urine Urobilinogen <2.0 (<2.0) mg/dL Ur Leukocyte Esterase Negative (Negative) Urine RBC <1 (0-5) /hpf Urine WBC <1 (0-5) /hpf Urine Mucus Rare H (None) /hpf Urine Opiates Screen Not Detected (NotDetected) Ur Oxycodone Screen Not Detected (NotDetected) Urine Methadone Screen Not Detected (NotDetected) Ur Propoxyphene Screen Not Detected (NotDetected) Ur Barbiturates Screen Not Detected (NotDetected) U Tricyclic Antidepress Not Detected (NotDetected) Ur Phencyclidine Scrn Not Detected (NotDetected) Ur Amphetamines Screen Detected H (NotDetected) U Methamphetamines Scrn Not Detected (NotDetected) U Benzodiazepines Scrn Detected H (NotDetected) Urine Cocaine Screen Not Detected (NotDetected) U Marijuana (THC) Screen Detected H (NotDetected) SARS-CoV-2 (PCR) (Not Detectd) 05/22/23 05/22/23 05/22/23 Range/Units 15:08 15:08 18:44 WBC (3.8-10.6) k/uL RBC (4.30-5.90) m/uL Hgb (13.0-17.5) gm/dL Hct (39.0-53.0) % MCV (80.0-100.0) fL MCH (25.0-35.0) pg MCHC (31.0-37.0) g/dL RDW (11.5-15.5) % Plt Count (150-450) k/uL MPV Neutrophils % % Lymphocytes % % Monocytes % % Eosinophils % % Basophils % % Neutrophils # (1.3-7.7) k/uL Lymphocytes # (1.0-4.8) k/uL Monocytes # (0-1.0) k/uL Eosinophils # (0-0.7) k/uL Basophils # (0-0.2) k/uL Sodium 135 L (137-145) mmol/L Potassium 4.2 (3.5-5.1) mmol/L Chloride 95 L (98-107) mmol/L Carbon Dioxide 28 (22-30) mmol/L Anion Gap 12 mmol/L BUN 14 (9-20) mg/dL Creatinine 0.54 L (0.66-1.25) mg/dL Est GFR (CKD-EPI)AfAm >90 (>60 ml/min/1.73 sqM) Est GFR (CKD-EPI)NonAf >90 (>60 ml/min/1.73 sqM) Glucose 300 H (74-99) mg/dL POC Glucose (mg/dL) 250 H (70-110) mg/dL POC Glu [employer] ID Alicja Hinkle Calcium 9.5 (8.4-10.2) mg/dL Total Bilirubin 0.8 (0.2-1.3) mg/dL AST 30 (17-59) U/L ALT 32 (4-49) U/L Alkaline Phosphatase 150 H (38-126) U/L Total Protein 6.9 (6.3-8.2) g/dL Albumin 4.4 (3.5-5.0) g/dL Urine Color Urine Appearance (Clear) Urine pH (5.0-8.0) Ur Specific [place] (1.001-1.035) Urine Protein (Negative) Urine Glucose (UA) (Negative) Urine Ketones (Negative) Urine Blood (Negative) Urine Nitrite (Negative) Urine Bilirubin (Negative) Urine Urobilinogen (<2.0) mg/dL Ur Leukocyte Esterase (Negative) Urine RBC (0-5) /hpf Urine WBC (0-5) /hpf Urine Mucus (None) /hpf Urine Opiates Screen (NotDetected) Ur Oxycodone Screen (NotDetected) Urine Methadone Screen (NotDetected) Ur Propoxyphene Screen (NotDetected) Ur Barbiturates Screen (NotDetected) U Tricyclic Antidepress (NotDetected) Ur Phencyclidine Scrn (NotDetected) Ur Amphetamines Screen (NotDetected) U Methamphetamines Scrn (NotDetected) U Benzodiazepines Scrn (NotDetected) Urine Cocaine Screen (NotDetected) U Marijuana (THC) Screen (NotDetected) SARS-CoV-2 (PCR) Not Detected (Not Detectd) Disposition <Mao Hernandez N - Last Filed: 05/22/23 01:07> Is patient prescribed a controlled substance at d/c from ED?: No <Ricardo Kirkland - Last Filed: 05/29/23 14:06> Clinical Impression: Acute anxiety, Depression, Suicidal ideation Disposition: TRANSFER TO PSYCH HOSP/UNIT Condition: Fair Referrals: Júnior Meza MD [Primary Care Provider] - 1-2 days
[2023-05-22 02:21] LABS: Amphetamine Screen,Urine Detected (NotDetected); Barbiturate Screen,Urine Not Detected (NotDetected); Benzodiazepines Screen,Urine Detected (NotDetected); Cocaine Screen,Urine Not Detected (NotDetected); Methadone Screen, Urine Not Detected (NotDetected); Opiate Screen,Urine Not Detected (NotDetected); Oxycodone Screen, Urine Not Detected (NotDetected); Phencyclidine Screen,Urine Not Detected (NotDetected); Tricyclic Antidepressant,Urine Not Detected (NotDetected); Urn Cannabinoid Scrn Detected (NotDetected)
[2023-05-22] MEDS ORDERED: ACETAMINOPHEN TAB 500 MG TAB PO STA (04:43)
[2023-05-22 07:38] VITALS: RESP 18
[2023-05-22 15:46] LABS: Appearance,Urine Clear (Clear); Color,Urine Light Yellow; PH, Urine 6.5 (5.0-8.0)
[2023-05-22 15:47] LABS: Bilirubin,Urine Negative (Negative); Blood,Urine Negative (Negative); Glucose,Urine (UA) 4+ (Negative); Ketones,Urine Negative (Negative); Nitrite,Urine Negative (Negative); Protein,Urine Negative (Negative); Urobilinogen,Urine <2.0 mg/dL (<2.0)
[2023-05-22 15:48] LABS: Leukocyte Esterase,Urine Negative (Negative)
[2023-05-22 15:49] LABS: Basophils % (A) 1 %; Eosinophils # (A) 0.3 k/uL (0-0.7); Eosinophils % (A) 3 %; HCT 42.2 % (39.0-53.0); HGB 14.1 gm/dL (13.0-17.5); Lymphocytes # (A) 1.8 k/uL (1.0-4.8); Lymphocytes % (A) 20 %; MCH 29.1 pg (25.0-35.0); MCHC 33.4 g/dL (31.0-37.0); MCV 87.1 fL (80.0-100.0); Mean Platelet Volume 8.8; Monocytes # (A) 0.4 k/uL (0-1.0); Monocytes % (A) 4 %; Neutrophils # (A) 6.2 k/uL (1.3-7.7); Neutrophils % (A) 70 %; Platelet Count 231 k/uL (150-450); RBC 4.84 m/uL (4.30-5.90); RDW 14.8 % (11.5-15.5)
[2023-05-22 16:15] LABS: Mucus,Urine Rare /hpf; RBC,Urine <1 /hpf (0-5); WBC,Urine <1 /hpf (0-5)
[2023-05-22 16:24] LABS: ALT 32 U/L (4-49); AST 30 U/L (17-59); African American GFR (CKD) >90 (>60 ml/min/1.73 sqM); Albumin 4.4 g/dL (3.5-5.0); Alkaline Phosphatase 150 U/L (38-126); Anion Gap 12 mmol/L; Blood Urea Nitrogen 14 mg/dL (9-20); Calcium 9.5 mg/dL (8.4-10.2); Carbon Dioxide 28 mmol/L (22-30); Chloride 95 mmol/L (98-107); Glucose 300 mg/dL (74-99); Non-African American GFR(CKD) >90 (>60 ml/min/1.73 sqM); Potassium 4.2 mmol/L (3.5-5.1); Sodium 135 mmol/L (137-145); Total Bilirubin 0.8 mg/dL (0.2-1.3); Total Protein 6.9 g/dL (6.3-8.2)
[2023-05-22 18:46] LABS: Glucose,Whole Blood 250 mg/dL (70-110)
[2023-05-22] MEDS ORDERED: traZODone HCL 100 MG TAB PO SCH (21:00)
[2023-05-22] MEDS ORDERED: ALPRAZolam 1 MG TAB PO SCH (21:00)
[2023-05-22] MEDS ORDERED: PANTOPRAZOLE 40 MG TABLET PO SCH (21:00)
[2023-05-22] MEDS ORDERED: ATORVASTATIN 40 MG TAB PO SCH (21:00)
[2023-05-22] MEDS ORDERED: SERTRALINE 100 MG TAB PO SCH (21:00)
[2023-05-22] MEDS ORDERED: lamoTRIgine 100 MG TAB PO SCH (21:00)
[2023-05-22] MEDS ORDERED: cloNIDine HCL 0.2 MG TAB PO SCH (22:00)
[2023-05-22] MEDS ORDERED: PROPRANOLOL 40 MG TAB PO SCH (22:00)
[2023-05-22 23:12] VITALS: BP 182/84; TEMP 97.3
[2023-05-23 04:40] VITALS: PULSE 98
[2023-05-23] MEDS ORDERED: LORATADINE 10 MG TAB PO SCH (09:00)
[2023-05-23] MEDS ORDERED: TAMSULOSIN 0.4 MG CAP.ER.24H PO SCH (09:00)
[2023-05-23] MEDS ORDERED: POTASSIUM CHLORIDE ER 10 MEQ TAB.ER.PRT PO SCH (09:00)
[2023-05-23] MEDS ORDERED: FUROSEMIDE 20 MG TAB PO SCH (09:00)
[2023-05-23] MEDS ORDERED: LISDEXAMFETAMINE DIMESYLATE 30 MG PO SCH (09:00)
[2023-05-23] MEDS ORDERED: LOSARTAN 50 MG TAB PO SCH (09:00)
[2023-05-23] MEDS ORDERED: NON FORMULARY DRUG (Losartan/Hydrochlorothiazide [Hyzaar 100-12.5 Tablet] 1 EACH Tablet) PO SCH (09:00)
[2023-05-23] MEDS ORDERED: hydroCHLOROthiazide 12.5 MG CAP PO SCH (09:00)
== END 2023-05-23 07:11 ==
LOC: EC 00:16
DX: F32.A Depression, unspecified (principal); F41.9 Anxiety disorder, unspecified; R45.851 Suicidal ideations; E11.9 Type 2 diabetes mellitus without complications; I10 Essential (primary) hypertension; K21.9 Gastro-esophageal reflux disease without esophagitis; Z20.822 Contact with and (suspected) exposure to COVID-19; Z79.4 Long term (current) use of insulin; Z79.01 Long term (current) use of anticoagulants; Z79.899 Other long term (current) drug therapy; Z88.1 Allergy status to other antibiotic agents; Z91.018 Allergy to other foods; Z87.891 Personal history of nicotine dependence
CPT/HCPCS: 36415; 80053; 80306; 81003; 82075; 85025; 87635; 93005; 99285

== ENCOUNTER 2023-12-04 12:33 | Emergency (ER) | payer MEDICARE ==
--- NOTE | 2023-12-04 13:30 | ED ---
Psych HPI - General Source: patient, police, RN notes reviewed Mode of arrival: ambulatory Limitations: no limitations <Jerry Rubio - Last Filed: 12/05/23 06:06> <Erum Morales - Last Filed: 12/06/23 00:09> - General Chief Complaint: Psychiatric Symptoms Stated Complaint: Petition Time Seen by Provider: 12/04/23 12:44 - History of Present Illness Initial Comments: 63-year-old male presents emergency department with police for psychiatric evaluation. Patient was brought in on a court order petition. Patient denies being suicidal homicidal denies any complaints he states he has an appointment with a psychiatrist to hopefully clear his name of any psychiatric issues. He denies any alcohol or drug use. Denies any other associated symptoms. (Jerry Rubio) - Related Data Home Medications Medication Instructions Recorded Confirmed Sertraline [Zoloft] 100 mg PO BID 01/23/22 12/04/23 Furosemide [Lasix] 20 mg PO Q2D@0900 12/06/22 12/04/23 Pantoprazole [Protonix] 40 mg PO BID 12/06/22 12/04/23 Potassium Chloride [Klor-Con M10] 10 meq PO Q2D@0900 12/06/22 12/04/23 Albuterol Sulfate [Albuterol 2 puff INHALATION RT-Q6H PRN 05/22/23 12/04/23 Sulfate Hfa] Apixaban [Eliquis] 5 mg PO Q2D@0900 05/22/23 12/04/23 INSULIN ASPART (NovoLOG) [NovoLOG See Protocol SQ AC-TID 05/22/23 12/04/23 (formulary)] Eszopiclone [Lunesta] 2 mg PO HS 12/04/23 12/04/23 Insulin Glargine,Hum.rec.anlog 60 units SQ DAILY 12/04/23 12/04/23 [Lantus Solostar Pen] Methylphenidate HCl [Concerta] 36 mg PO DAILY 12/04/23 12/04/23 Propranolol [Inderal] 40 mg PO BID 12/04/23 12/04/23 cloNIDine HCL [Catapres] 0.1 mg PO TID 12/04/23 12/04/23 lamoTRIgine [LaMICtal] 150 mg PO DAILY 12/04/23 12/04/23 traZODone HCL [Desyrel] 100 mg PO HS 12/04/23 12/04/23 Previous Rx's Medication Instructions Recorded Atorvastatin [Lipitor] 40 mg PO HS 90 Days #90 tab 12/16/22 Allergies Allergy/AdvReac Type Severity Reaction Status Date / Time gluten Allergy celiac Verified 12/04/23 18:04 disease tetracycline AdvReac TURNED Verified 12/04/23 18:04 TEETH DARK Review of Systems ROS Other: All systems not noted in ROS Statement are negative. <Jerry Rubio - Last Filed: 12/05/23 06:06> ROS Other: All systems not noted in ROS Statement are negative. <Erum Morales - Last Filed: 12/06/23 00:09> ROS Statement: Those systems with pertinent positive or pertinent negative responses have been documented in the HPI. Past Medical History Past Medical History: Diabetes Mellitus, GERD/Reflux, Hearing Disorder / Deafness, Hyperlipidemia, Hypertension, Prostate Disorder, Sleep Apnea/CPAP/BIPAP Additional Past Medical History / Comment(s): supposed to use CPAP-NOT USING, celiac disease, radha. arms/LEGS N/T, pain, frequent falls related to failed back surg. per spouse, HX ASPIRATION PNEUMONIA 07/2022, [place] History of Any Multi-Drug Resistant Organisms: None Reported Past Surgical History: Back Surgery, Hernia Repair, Tonsillectomy Additional Past Surgical History / Comment(s): laminectomy 2012, lumbar fusion 2017, hernia repair x2, cerivcal FUSION surgery 01/2022. HERNIA X 2, COLONOSCOPY, Past Anesthesia/Blood Transfusion Reactions: Previous Problems w/ Anesthesia Additional Past Anesthesia/Blood Transfusion Reaction / Comment(s): wakes up combative after anesthesia Past Psychological History: Anxiety, Depression Smoking Status: Former smoker Past Alcohol Use History: None Reported Past Drug Use History: None Reported - Past Family History Mother Family Medical History: No Reported History <Jerry Rubio - Last Filed: 12/05/23 06:06> General Exam Limitations: no limitations General appearance: alert, in no apparent distress Head exam: Present: atraumatic, normocephalic, normal inspection Eye exam: Present: normal appearance, PERRL, EOMI. Absent: scleral icterus, conjunctival injection, periorbital swelling ENT exam: Present: normal exam, mucous membranes moist Neck exam: Present: normal inspection, full ROM. Absent: tenderness, meningismus, lymphadenopathy Respiratory exam: Present: normal lung sounds bilaterally. Absent: respiratory distress, wheezes, rales, rhonchi, stridor Cardiovascular Exam: Present: regular rate, normal rhythm, normal heart sounds. Absent: systolic murmur, diastolic murmur, rubs, gallop, clicks GI/Abdominal exam: Present: soft, normal bowel sounds. Absent: distended, tenderness, guarding, rebound, rigid Neurological exam: Present: alert, oriented X3 Psychiatric exam: Present: normal affect, normal mood <Jerry Rubio - Last Filed: 12/05/23 06:06> Course Vital Signs 12/04/23 12/04/23 12/05/23 12:45 22:32 06:02 Temperature 98.4 F Pulse Rate 68 77 61 Respiratory 20 18 16 Rate Blood Pressure 191/81 133/70 143/76 O2 Sat by Pulse 99 97 98 Oximetry 12/05/23 12/05/23 18:18 20:00 Temperature 97.9 F 98.1 F Pulse Rate 70 62 Respiratory 14 18 Rate Blood Pressure 198/75 182/78 O2 Sat by Pulse 99 97 Oximetry Medical Decision Making - Lab Data Result diagrams: 12/04/23 19:44 12/04/23 19:44 <Jerry Rubio - Last Filed: 12/05/23 06:06> - Lab Data Result diagrams: 12/04/23 19:44 12/04/23 19:44 <Erum Morales - Last Filed: 12/06/23 00:09> - Medical Decision Making Was pt. sent in by a medical professional or institution (, PA, PUBLIC SERVICE OFFICER, urgent care, hospital, or long term...) When possible be specific @ -No Did you speak to anyone other than the patient for history (EMS, parent, family, police, friend...)? What history was obtained from this source @ -No Did you review nursing and triage notes (agree or disagree)? Why? @ -I reviewed and agree with nursing and triage notes Were old charts reviewed (outside hosp., previous admission, EMS record, old EKG, old radiological studies, urgent care reports/EKG's, long term records)? Report findings @ -No old charts were reviewed Differential Diagnosis (chest pain, altered mental status, abdominal pain women, abdominal pain men, vaginal bleeding, weakness, fever, dyspnea, syncope, headache, dizziness, GI bleed, back pain, seizure, CVA, palpatations, mental health, musculoskeletal)? @ -Differential Mental Health Depression, anxiety, bipolar, psychosis, schizophrenia, borderline personality, situational depression, adjustment disorder, behavioral disorder, brain tumor, malingering, substance abuse, encephalopathy, medication reaction, dementia, hypothyroidism, degenerative neurologic disorder, lupus.... This is not meant to be all-inclusive list EKG interpreted by me (3pts min.). @ -None X-rays interpreted by me (1pt min.). @ -None done CT interpreted by me (1pt min.). @ -None done U/S interpreted by me (1pt. min.). @ -None done What testing was considered but not performed or refused? (CT, X-rays, U/S, labs)? Why? @ -None What meds were considered but not given or refused? Why? @ -None Did you discuss the management of the patient with other professionals (professionals i.e. , PA, PUBLIC SERVICE OFFICER, lab, RT, psych nurse, social psychologist, regional program manager, teacher, radio division officer, manager case)? Give summary @ -EPS evaluated the patient recommended inpatient psychiatric treatment Was smoking cessation discussed for >3mins.? @ -No Was critical care preformed (if so, how long)? @ -No Were there social determinants of health that impacted care today? How? (Homelessness, low income, unemployed, alcoholism, drug addiction, transportation, low edu. Level, literacy, decrease access to med. care, senior living, rehab)? @ -No Was there de-escalation of care discussed even if they declined (Discuss DNR or withdrawal of care, Hospice)? DNR status @ -No What co-morbidities impacted this encounter? (DM, HTN, Smoking, COPD, CAD, Cancer, CVA, ARF, Chemo, Hep., AIDS, mental health diagnosis, sleep apnea, morbid obesity)? @ -None Was patient admitted / discharged? Hospital course, mention meds given and route, prescriptions, significant lab abnormalities, going to OR and other pertinent info. @ -Patient is transferred to psychiatric facility for inpatient psychiatric treatment. Undiagnosed new problem with uncertain prognosis? @ -No Drug Therapy requiring intensive monitoring for toxicity (Heparin, Nitro, Insulin, Cardizem)? @ -No Were any procedures done? @ -No Diagnosis/symptom? @ -Paranoid, depression, psychosis Acute, or Chronic, or Acute on Chronic? @ -Acute Uncomplicated (without systemic symptoms) or Complicated (systemic symptoms)? @ -Uncomplicated Side effects of treatment? @ -No Exacerbation, Progression, or Severe Exacerbation? @ -No Poses a threat to life or bodily function? How? (Chest pain, [place], [place], pneumonia, PE, COPD, DKA, ARF, appy, cholecystitis, CVA, Diverticulitis, Homicidal, Suicidal, threat to staff... and all critical care pts) @ -No (Jerry Rubio) Patient was evaluated by EPS and requires inpatient placement. I did fill out a certification. Patient does require transfer due to conflict of interest with our facility. Patient is awaiting a bed at this time (Erum Morales) - Lab Data Lab Results 12/04/23 12/04/23 12/04/23 Range/Units 17:53 18:02 18:02 WBC (3.8-10.6) k/uL RBC (4.30-5.90) m/uL Hgb (13.0-17.5) gm/dL Hct (39.0-53.0) % MCV (80.0-100.0) fL MCH (25.0-35.0) pg MCHC (31.0-37.0) g/dL RDW (11.5-15.5) % Plt Count (150-450) k/uL MPV Neutrophils % % Lymphocytes % % Monocytes % % Eosinophils % % Basophils % % Neutrophils # (1.3-7.7) k/uL Lymphocytes # (1.0-4.8) k/uL Monocytes # (0-1.0) k/uL Eosinophils # (0-0.7) k/uL Basophils # (0-0.2) k/uL Sodium (137-145) mmol/L Potassium (3.5-5.1) mmol/L Chloride (98-107) mmol/L Carbon Dioxide (22-30) mmol/L Anion Gap mmol/L BUN (9-20) mg/dL Creatinine (0.66-1.25) mg/dL Est GFR (CKD-EPI)AfAm (>60 ml/min/1.73 sqM) Est GFR (CKD-EPI)NonAf (>60 ml/min/1.73 sqM) Glucose (74-99) mg/dL POC Glucose (mg/dL) 69 L (70-110) mg/dL POC Glu Patient Services Clerk ID Mi Lyons [address] Glu mg/dL mg/dL Hemoglobin A1c (<=6.0) % Calcium (8.4-10.2) mg/dL Total Bilirubin (0.2-1.3) mg/dL AST (17-59) U/L ALT (4-49) U/L Alkaline Phosphatase (38-126) U/L Total Protein (6.3-8.2) g/dL Albumin (3.5-5.0) g/dL Urine Color Urine Appearance (Clear) Urine pH (5.0-8.0) Ur Specific [place] (1.001-1.035) Urine Protein (Negative) Urine Glucose (UA) (Negative) Urine Ketones (Negative) Urine Blood (Negative) Urine Nitrite (Negative) Urine Bilirubin (Negative) Urine Urobilinogen (<2.0) mg/dL Ur Leukocyte Esterase (Negative) Urine Opiates Screen Not Detected (NotDetected) Ur Oxycodone Screen Not Detected (NotDetected) Urine Methadone Screen Not Detected (NotDetected) Ur Barbiturates Screen Not Detected (NotDetected) U Tricyclic Antidepress Not Detected (NotDetected) Ur Phencyclidine Scrn Not Detected (NotDetected) Ur Amphetamines Screen Not Detected (NotDetected) U Methamphetamines Scrn Not Detected (NotDetected) U Benzodiazepines Scrn Not Detected (NotDetected) Urine Cocaine Screen Not Detected (NotDetected) U Marijuana (THC) Screen Detected H (NotDetected) SARS-CoV-2 (PCR) Not Detected (Not Detectd) 12/04/23 12/04/23 12/04/23 Range/Units 19:00 19:44 19:44 WBC 7.3 (3.8-10.6) k/uL RBC 5.13 (4.30-5.90) m/uL Hgb 15.1 (13.0-17.5) gm/dL Hct 47.7 (39.0-53.0) % MCV 93.0 (80.0-100.0) fL MCH 29.4 (25.0-35.0) pg MCHC 31.6 (31.0-37.0) g/dL RDW 13.5 (11.5-15.5) % Plt Count 265 (150-450) k/uL MPV 7.9 Neutrophils % 63 % Lymphocytes % 26 % Monocytes % 6 % Eosinophils % 3 % Basophils % 1 % Neutrophils # 4.6 (1.3-7.7) k/uL Lymphocytes # 1.9 (1.0-4.8) k/uL Monocytes # 0.4 (0-1.0) k/uL Eosinophils # 0.2 (0-0.7) k/uL Basophils # 0.0 (0-0.2) k/uL Sodium (137-145) mmol/L Potassium (3.5-5.1) mmol/L Chloride (98-107) mmol/L Carbon Dioxide (22-30) mmol/L Anion Gap mmol/L BUN (9-20) mg/dL Creatinine (0.66-1.25) mg/dL Est GFR (CKD-EPI)AfAm (>60 ml/min/1.73 sqM) Est GFR (CKD-EPI)NonAf (>60 ml/min/1.73 sqM) Glucose (74-99) mg/dL POC Glucose (mg/dL) (70-110) mg/dL POC Glu Patient Services Clerk ID Estimated Ave Glu mg/dL 246 mg/dL Hemoglobin A1c 10.2 H (<=6.0) % Calcium (8.4-10.2) mg/dL Total Bilirubin (0.2-1.3) mg/dL AST (17-59) U/L ALT (4-49) U/L Alkaline Phosphatase (38-126) U/L Total Protein (6.3-8.2) g/dL Albumin (3.5-5.0) g/dL Urine Color Yellow Urine Appearance Clear (Clear) Urine pH 5.5 (5.0-8.0) Ur Specific [place] 1.017 (1.001-1.035) Urine Protein Negative (Negative) Urine Glucose (UA) Negative (Negative) Urine Ketones 1+ H (Negative) Urine Blood Negative (Negative) Urine Nitrite Negative (Negative) Urine Bilirubin Negative (Negative) Urine Urobilinogen <2.0 (<2.0) mg/dL Ur Leukocyte Esterase Negative (Negative) Urine Opiates Screen (NotDetected) Ur Oxycodone Screen (NotDetected) Urine Methadone Screen (NotDetected) Ur Barbiturates Screen (NotDetected) U Tricyclic Antidepress (NotDetected) Ur Phencyclidine Scrn (NotDetected) Ur Amphetamines Screen (NotDetected) U Methamphetamines Scrn (NotDetected) U Benzodiazepines Scrn (NotDetected) Urine Cocaine Screen (NotDetected) U Marijuana (THC) Screen (NotDetected) SARS-CoV-2 (PCR) (Not Detectd) 12/04/23 12/04/23 12/05/23 Range/Units 19:44 20:43 07:31 WBC (3.8-10.6) k/uL RBC (4.30-5.90) m/uL Hgb (13.0-17.5) gm/dL Hct (39.0-53.0) % MCV (80.0-100.0) fL MCH (25.0-35.0) pg MCHC (31.0-37.0) g/dL RDW (11.5-15.5) % Plt Count (150-450) k/uL MPV Neutrophils % % Lymphocytes % % Monocytes % % Eosinophils % % Basophils % % Neutrophils # (1.3-7.7) k/uL Lymphocytes # (1.0-4.8) k/uL Monocytes # (0-1.0) k/uL Eosinophils # (0-0.7) k/uL Basophils # (0-0.2) k/uL Sodium 140 (137-145) mmol/L Potassium 4.1 (3.5-5.1) mmol/L Chloride 104 (98-107) mmol/L Carbon Dioxide 26 (22-30) mmol/L Anion Gap 10 mmol/L BUN 12 (9-20) mg/dL Creatinine 0.67 (0.66-1.25) mg/dL Est GFR (CKD-EPI)AfAm >90 (>60 ml/min/1.73 sqM) Est GFR (CKD-EPI)NonAf >90 (>60 ml/min/1.73 sqM) Glucose 102 H (74-99) mg/dL POC Glucose (mg/dL) 88 153 H (70-110) mg/dL POC Glu Patient Services Clerk ID Ihsan Blackwell Candie [address] Glu mg/dL mg/dL Hemoglobin A1c (<=6.0) % Calcium 9.8 (8.4-10.2) mg/dL Total Bilirubin 0.7 (0.2-1.3) mg/dL AST 35 (17-59) U/L ALT 27 (4-49) U/L Alkaline Phosphatase 110 (38-126) U/L Total Protein 7.3 (6.3-8.2) g/dL Albumin 4.9 (3.5-5.0) g/dL Urine Color Urine Appearance (Clear) Urine pH (5.0-8.0) Ur Specific [place] (1.001-1.035) Urine Protein (Negative) Urine Glucose (UA) (Negative) Urine Ketones (Negative) Urine Blood (Negative) Urine Nitrite (Negative) Urine Bilirubin (Negative) Urine Urobilinogen (<2.0) mg/dL Ur Leukocyte Esterase (Negative) Urine Opiates Screen (NotDetected) Ur Oxycodone Screen (NotDetected) Urine Methadone Screen (NotDetected) Ur Barbiturates Screen (NotDetected) U Tricyclic Antidepress (NotDetected) Ur Phencyclidine Scrn (NotDetected) Ur Amphetamines Screen (NotDetected) U Methamphetamines Scrn (NotDetected) U Benzodiazepines Scrn (NotDetected) Urine Cocaine Screen (NotDetected) U Marijuana (THC) Screen (NotDetected) SARS-CoV-2 (PCR) (Not Detectd) 12/05/23 12/05/23 12/05/23 Range/Units 12:45 17:18 21:05 WBC (3.8-10.6) k/uL RBC (4.30-5.90) m/uL Hgb (13.0-17.5) gm/dL Hct (39.0-53.0) % MCV (80.0-100.0) fL MCH (25.0-35.0) pg MCHC (31.0-37.0) g/dL RDW (11.5-15.5) % Plt Count (150-450) k/uL MPV Neutrophils % % Lymphocytes % % Monocytes % % Eosinophils % % Basophils % % Neutrophils # (1.3-7.7) k/uL Lymphocytes # (1.0-4.8) k/uL Monocytes # (0-1.0) k/uL Eosinophils # (0-0.7) k/uL Basophils # (0-0.2) k/uL Sodium (137-145) mmol/L Potassium (3.5-5.1) mmol/L Chloride (98-107) mmol/L Carbon Dioxide (22-30) mmol/L Anion Gap mmol/L BUN (9-20) mg/dL Creatinine (0.66-1.25) mg/dL Est GFR (CKD-EPI)AfAm (>60 ml/min/1.73 sqM) Est GFR (CKD-EPI)NonAf (>60 ml/min/1.73 sqM) Glucose (74-99) mg/dL POC Glucose (mg/dL) 152 H 129 H 104 (70-110) mg/dL POC Glu Patient Services Clerk Candie Odonnell Lawren Collins, Mara [address] Glu mg/dL mg/dL Hemoglobin A1c (<=6.0) % Calcium (8.4-10.2) mg/dL Total Bilirubin (0.2-1.3) mg/dL AST (17-59) U/L ALT (4-49) U/L Alkaline Phosphatase (38-126) U/L Total Protein (6.3-8.2) g/dL Albumin (3.5-5.0) g/dL Urine Color Urine Appearance (Clear) Urine pH (5.0-8.0) Ur Specific [place] (1.001-1.035) Urine Protein (Negative) Urine Glucose (UA) (Negative) Urine Ketones (Negative) Urine Blood (Negative) Urine Nitrite (Negative) Urine Bilirubin (Negative) Urine Urobilinogen (<2.0) mg/dL Ur Leukocyte Esterase (Negative) Urine Opiates Screen (NotDetected) Ur Oxycodone Screen (NotDetected) Urine Methadone Screen (NotDetected) Ur Barbiturates Screen (NotDetected) U Tricyclic Antidepress (NotDetected) Ur Phencyclidine Scrn (NotDetected) Ur Amphetamines Screen (NotDetected) U Methamphetamines Scrn (NotDetected) U Benzodiazepines Scrn (NotDetected) Urine Cocaine Screen (NotDetected) U Marijuana (THC) Screen (NotDetected) SARS-CoV-2 (PCR) (Not Detectd) Disposition <Jerry Rubio M - Last Filed: 12/05/23 06:06> Is patient prescribed a controlled substance at d/c from ED?: No <Erum Morales - Last Filed: 12/06/23 00:09> Clinical Impression: Depression, Paranoid, Acute psychosis Disposition: TRANSFER TO PSYCH HOSP/UNIT Condition: Stable Referrals: Júnior Meza MD [Primary Care Provider] - 1-2 days
[2023-12-04 17:55] LABS: Glucose,Whole Blood 69 mg/dL (70-110)
[2023-12-04] MEDS ORDERED: ALBUTEROL HFA INHALER INHALATION PRN (18:20)
[2023-12-04] MEDS ORDERED: DEXTROSE 50% SYRINGE 50 ML IVP PRN ×2 (18:27)
[2023-12-04 18:42] LABS: Amphetamine Screen,Urine Not Detected (NotDetected); Barbiturate Screen,Urine Not Detected (NotDetected); Benzodiazepines Screen,Urine Not Detected (NotDetected); Cocaine Screen,Urine Not Detected (NotDetected); Methadone Screen, Urine Not Detected (NotDetected); Opiate Screen,Urine Not Detected (NotDetected); Oxycodone Screen, Urine Not Detected (NotDetected); Phencyclidine Screen,Urine Not Detected (NotDetected); Tricyclic Antidepressant,Urine Not Detected (NotDetected); Urn Cannabinoid Scrn Detected (NotDetected)
[2023-12-04] MEDS: INSULIN DETEMIR (LEVEMIR) 100 UNIT/ML SYR SQ SCH (19:04)
[2023-12-04] MEDS: cloNIDine HCL 0.1 MG TAB PO SCH (19:08)
[2023-12-04] MEDS: lamoTRIgine 100 MG TAB PO SCH (19:08)
[2023-12-04 19:24] LABS: Appearance,Urine Clear (Clear); Bilirubin,Urine Negative (Negative); Blood,Urine Negative (Negative); Color,Urine Yellow; Glucose,Urine (UA) Negative (Negative); Ketones,Urine 1+ (Negative); Leukocyte Esterase,Urine Negative (Negative); Nitrite,Urine Negative (Negative); PH, Urine 5.5 (5.0-8.0); Protein,Urine Negative (Negative); Specific Gravity,Urine 1.017 (1.001-1.035); Urobilinogen,Urine <2.0 mg/dL (<2.0)
[2023-12-04 19:54] LABS: Basophils % (A) 1 %; Eosinophils # (A) 0.2 k/uL (0-0.7); Eosinophils % (A) 3 %; HCT 47.7 % (39.0-53.0); HGB 15.1 gm/dL (13.0-17.5); Lymphocytes # (A) 1.9 k/uL (1.0-4.8); Lymphocytes % (A) 26 %; MCH 29.4 pg (25.0-35.0); MCHC 31.6 g/dL (31.0-37.0); Mean Platelet Volume 7.9; Monocytes # (A) 0.4 k/uL (0-1.0); Monocytes % (A) 6 %; Neutrophils # (A) 4.6 k/uL (1.3-7.7); Neutrophils % (A) 63 %; Platelet Count 265 k/uL (150-450); RBC 5.13 m/uL (4.30-5.90); RDW 13.5 % (11.5-15.5); WBC 7.3 k/uL (3.8-10.6)
[2023-12-04 20:08] LABS: ALT 27 U/L (4-49); AST 35 U/L (17-59); African American GFR (CKD) >90 (>60 ml/min/1.73 sqM); Albumin 4.9 g/dL (3.5-5.0); Alkaline Phosphatase 110 U/L (38-126); Anion Gap 10 mmol/L; Blood Urea Nitrogen 12 mg/dL (9-20); Calcium 9.8 mg/dL (8.4-10.2); Carbon Dioxide 26 mmol/L (22-30); Chloride 104 mmol/L (98-107); Glucose 102 mg/dL (74-99); Non-African American GFR(CKD) >90 (>60 ml/min/1.73 sqM); Potassium 4.1 mmol/L (3.5-5.1); Sodium 140 mmol/L (137-145); Total Bilirubin 0.7 mg/dL (0.2-1.3); Total Protein 7.3 g/dL (6.3-8.2)
[2023-12-04 20:46] LABS: Glucose,Whole Blood 88 mg/dL (70-110)
[2023-12-04] MEDS: APIXABAN 5 MG TAB PO SCH (21:11)
[2023-12-04] MEDS: PANTOPRAZOLE 40 MG TABLET PO SCH (21:11)
[2023-12-04] MEDS: PROPRANOLOL 40 MG TAB PO SCH (21:11)
[2023-12-04] MEDS: SERTRALINE 100 MG TAB PO SCH (21:14)
[2023-12-04] MEDS: traZODone HCL 100 MG TAB PO SCH (21:14)
[2023-12-04] MEDS: INSULIN ASPART (NovoLOG) 100 UNIT/ML VIAL SQ SCH (21:20)
[2023-12-04] MEDS: TEMAZEPAM 15 MG CAP PO SCH (22:28)
[2023-12-04] MEDS: ATORVASTATIN 40 MG TAB PO SCH (22:29)
[2023-12-05 07:32] LABS: Glucose,Whole Blood 153 mg/dL (70-110)
[2023-12-05] MEDS: METHYLPHENIDATE HCL 10 MG TAB PO SCH (07:44)
[2023-12-05] MEDS: FUROSEMIDE 20 MG TAB PO SCH (08:47)
[2023-12-05] MEDS: POTASSIUM CHLORIDE ER 10 MEQ TAB.ER.PRT PO SCH (08:48)
[2023-12-05] MEDS: ACETAMINOPHEN TAB 325 MG TAB PO PRN (12:44)
[2023-12-05 12:46] LABS: Glucose,Whole Blood 152 mg/dL (70-110)
[2023-12-05 17:19] LABS: Glucose,Whole Blood 129 mg/dL (70-110)
[2023-12-05 20:02] VITALS: RESP 18; TEMP 98.1
[2023-12-05 21:11] LABS: Glucose,Whole Blood 104 mg/dL (70-110)
[2023-12-06] MEDS ORDERED: LORazepam 1 MG TAB PO STA (04:33)
[2023-12-06] MEDS: LORazepam 0.5 MG TAB PO STA (04:37)
[2023-12-06 05:30] VITALS: BP 177/77; PULSE 72
[2023-12-06] MEDS ORDERED: INSULIN DETEMIR (LEVEMIR) 100 UNIT/ML SYR SQ SCH (07:00)
== END 2023-12-06 05:31 ==
LOC: EC 12:33 → EEVIPCON 12:33 → EC 12-06 05:31
DX: F32.A Depression, unspecified (principal); F22 Delusional disorders; Z87.891 Personal history of nicotine dependence; Z88.1 Allergy status to other antibiotic agents; Z91.018 Allergy to other foods
CPT/HCPCS: 36415; 80053; 80306; 81003; 82075; 83036; 85025; 87635; 99285